=== PATIENT | female | born 1970 | race Native Hawaiian/Other Pacific Islander ===

== ENCOUNTER 2023-08-11 20:23 | Emergency (ER) | payer MEDICAID, OTHER ==
--- NOTE | 2023-08-11 20:54 | ED ---
General Adult HPI - General Source: patient Mode of arrival: ambulatory Limitations: no limitations <Maria Elena Negrete - Last Filed: 08/11/23 20:53> <Joaquin Farias - Last Filed: 08/12/23 02:26> - General Chief complaint: Back Pain/Injury Stated complaint: back pain - History of Present Illness Initial comments: 53-year-old female presents emergency department chief complaint back pain. She states that this started around 2 days ago. She states that it is throughout her entire back but states it is worse in the right flank. She denies any dysuria, hematuria, fever. (Maria Elena Negrete) 53-year-old female presenting with chief complaint of back pain. Patient states that the pain is located throughout her back, but primarily in the right flank. It started about 2 days ago. She denies any dysuria or hematuria. No urgency or frequency. Admits to nausea with no vomiting. No injury or trauma. No loss of bowel or bladder control or saddle paresthesia. no fevers or chills. No abdominal pain (Joaquin Farias) - Related Data Previous Rx's Medication Instructions Recorded Cephalexin [Keflex] 500 mg PO Q12HR 7 Days #14 cap 08/12/23 HYDROcodone/APAP 7.5-325MG [[place] 1 tab PO Q6HR PRN 3 Days #12 tab 08/12/23 7.5-325] Ondansetron Odt [Zofran Odt] 4 mg PO Q8HR PRN #20 tab 08/12/23 Allergies Allergy/AdvReac Type Severity Reaction Status Date / Time Sulfa (Sulfonamide Allergy Rash/Hives Verified 08/11/23 20:51 Antibiotics) morphine AdvReac headache Verified 08/11/23 20:51 Review of Systems ROS Other: All systems not noted in ROS Statement are negative. <Maria Elena Negrete - Last Filed: 08/11/23 20:53> ROS Other: All systems not noted in ROS Statement are negative. <Joaquin Farias - Last Filed: 08/12/23 02:26> ROS Statement: Those systems with pertinent positive or pertinent negative responses have been documented in the HPI. Past Medical History Past Medical History: Diabetes Mellitus, Hyperlipidemia, Hypertension, Osteoarthritis (OA) Additional Past Medical History / Comment(s): pancreatitis History of Any Multi-Drug Resistant Organisms: None Reported Past Surgical History: Back Surgery, Section, Joint Replacement, Orthopedic Surgery Additional Past Surgical History / Comment(s): rt knee, pelvis, mady cataracts, retnial detatchment Past Psychological History: No Psychological Hx Reported Smoking Status: Current every day smoker Past Alcohol Use History: None Reported Past Drug Use History: None Reported <Maria Elena Negrete - Last Filed: 08/11/23 20:53> General Exam Limitations: no limitations <Maria Elena Negrete - Last Filed: 08/11/23 20:53> Limitations: no limitations General appearance: alert, in no apparent distress Head exam: Present: atraumatic, normocephalic, normal inspection Eye exam: Present: normal appearance, EOMI Neck exam: Present: normal inspection, full ROM Respiratory exam: Present: normal lung sounds bilaterally. Absent: respiratory distress, wheezes, rales, rhonchi, stridor Cardiovascular Exam: Present: regular rate, normal rhythm, normal heart sounds. Absent: systolic murmur, diastolic murmur, rubs, gallop, clicks Back exam: Present: normal inspection, tenderness Neurological exam: Present: alert, oriented X3, CN II-XII intact Psychiatric exam: Present: normal affect, normal mood Skin exam: Present: warm, dry, intact, normal color. Absent: rash <Joaquin Farias - Last Filed: 08/12/23 02:26> - General Exam Comments Initial Comments: Visual Physical Exam Vital signs reviewed General: Well-appearing, nontoxic, no acute distress. Head: Normocephalic, atraumatic Eyes: PERRLA, EOMI ENT: Airway patent Chest: Nonlabored breathing Skin: No visual rash, normal skin tone Neuro: Alert and oriented 3 Musculoskeletal: No gross abnormalities (Maria Elena Negrete) Course Vital Signs 08/11/23 20:45 Temperature 98.6 F Pulse Rate 93 Respiratory 20 Rate Blood Pressure 145/84 O2 Sat by Pulse 98 Oximetry Medical Decision Making <Maria Elena Negrete - Last Filed: 08/11/23 20:53> - Lab Data Result diagrams: 08/12/23 01:07 <Joaquin Farias - Last Filed: 08/12/23 02:26> - Medical Decision Making I preformed the quick note portion of this chart. Electronically signed by Maria Elena Negrete PA-C (Maria Elena Negrete) Was pt. sent in by a medical professional or institution ([facility], [employer] RE[employer], urgent care, hospital, or penitentiary...) When possible be specific @ -No Did you speak to anyone other than the patient for history (EMS, parent, family, police, friend...)? What history was obtained from this source @ -No Did you review nursing and triage notes (agree or disagree)? Why? @ -I reviewed and agree with nursing and triage notes Were old charts reviewed (outside hosp., previous admission, EMS record, old EKG, old radiological studies, urgent care reports/EKG's, penitentiary records)? Report findings @ -No old charts were reviewed Differential Diagnosis (chest pain, altered mental status, abdominal pain women, abdominal pain men, vaginal bleeding, weakness, fever, dyspnea, syncope, headache, dizziness, GI bleed, back pain, seizure, CVA, palpatations, mental health, musculoskeletal)? @ - MDM Differential Back Pain: Strain, zoster, cauda equina syndrome, epidural abscess, vertebral osteomyelitis, discitis, fracture, subluxation, disc herniation, DJD, spinal stenosis, dissection, AAA, pancreatitis, peptic ulcer disease, pyelonephritis, kidney stone this is not meant to be an all-inclusive list. EKG interpreted by me (3pts min.). @ -As above X-rays interpreted by me (1pt min.). @ -None done CT interpreted by me (1pt min.). @ -No acute intra-abdominal process. Punctate nonobstructing bilateral renal stones. Gas in the urinary bladder U/S interpreted by me (1pt. min.). @ -None done What testing was considered but not performed or refused? (CT, X-rays, U/S, labs)? Why? @ -None What meds were considered but not given or refused? Why? @ -None Did you discuss the management of the patient with other professionals (professionals i.e. [facility], [employer] RE[employer]ER, lab, RT, psych nurse, high school social studies tutor, molybdenum steamer operator, teacher, pharmaceutical officer, director of casework services)? Give summary @ -Spoke with Dr. Sierra who stated that if the patient has a white count greater than 15 she could be admitted for observation, if white count is less than 15 she may be discharged home on antibiotics with outpatient follow-up Was smoking cessation discussed for >3mins.? @ -No Was critical care preformed (if so, how long)? @ -No Were there social determinants of health that impacted care today? How? (Homelessness, low income, unemployed, alcoholism, drug addiction, transportation, low edu. Level, literacy, decrease access to med. care, fdc, rehab)? @ -No Was there de-escalation of care discussed even if they declined (Discuss DNR or withdrawal of care, Hospice)? DNR status @ -No What co-morbidities impacted this encounter? (DM, HTN, Smoking, COPD, CAD, Cancer, CVA, ARF, Chemo, Hep., AIDS, mental health diagnosis, sleep apnea, morbid obesity)? @ -None Was patient admitted / discharged? Hospital course, mention meds given and route, prescriptions, significant lab abnormalities, going to OR and other pertinent info. @ -53-year-old female presenting with chief complaint of acute pain ongoing for 2 days. Urine is positive for UTI. CT negative for stone. There is air noted in the urinary bladder. I spoke with urologist on-call who stated that the freida koroma had a normal white count she may be discharged home on antibiotics. WBC 8.3. Patient will be treated with Keflex and instructed to follow up with urology in the outpatient setting. Follow-up with PCP. Report back to ER with any new or worsening symptoms. Discussed return parameters and answered all questions. Patient conveyed verbal understanding and agreed to the plan. I discussed this case in detail with my attending Dr. Rushing Undiagnosed new problem with uncertain prognosis? @ -No Drug Therapy requiring intensive monitoring for toxicity (Heparin, Nitro, Insulin, Cardizem)? @ -No Were any procedures done? @ -No Diagnosis/symptom? @ -UTI Acute, or Chronic, or Acute on Chronic? @ -Acute Uncomplicated (without systemic symptoms) or Complicated (systemic symptoms)? @ -Uncomplicated Side effects of treatment? @ -No Exacerbation, Progression, or Severe Exacerbation? @ -No Poses a threat to life or bodily function? How? (Chest pain, [place], NH, pneumonia, PE, COPD, DKA, ARF, appy, cholecystitis, CVA, Diverticulitis, Homicidal, Suicidal, threat to staff... and all critical care pts) @ -No (Joaquin Farias) - Lab Data Lab Results 08/11/23 08/12/23 Range/Units 20:58 01:07 WBC 8.3 (3.8-10.6) k/uL RBC 4.88 (3.80-5.40) m/uL Hgb 14.8 (11.4-16.0) gm/dL Hct 43.7 (34.0-46.0) % MCV 89.5 (80.0-100.0) fL MCH 30.3 (25.0-35.0) pg MCHC 33.8 (31.0-37.0) g/dL RDW 12.5 (11.5-15.5) % Plt Count 224 (150-450) k/uL MPV 8.1 Neutrophils % 63 % Lymphocytes % 28 % Monocytes % 5 % Eosinophils % 2 % Basophils % 0 % Neutrophils # 5.2 (1.3-7.7) k/uL Lymphocytes # 2.3 (1.0-4.8) k/uL Monocytes # 0.4 (0-1.0) k/uL Eosinophils # 0.2 (0-0.7) k/uL Basophils # 0.0 (0-0.2) k/uL Urine Color Colorless Urine Appearance Clear (Clear) Urine pH 6.0 (5.0-8.0) Ur Specific [place] 1.017 (1.001-1.035) Urine Protein 3+ H (Negative) Urine Glucose (UA) 4+ H (Negative) Urine Ketones 1+ H (Negative) Urine Blood Small H (Negative) Urine Nitrite Positive H (Negative) Urine Bilirubin Negative (Negative) Urine Urobilinogen <2.0 (<2.0) mg/dL Ur Leukocyte Esterase Negative (Negative) Urine RBC 9 H (0-5) /hpf Urine WBC 10 H (0-5) /hpf Ur Squamous Epith Cells 2 (0-4) /hpf Urine Bacteria Many H (None) /hpf Urine Mucus Rare H (None) /hpf Disposition <Maria Elena Negrete - Last Filed: 08/11/23 20:53> Is patient prescribed a controlled substance at d/c from ED?: No Time of Disposition: 01:26 <Joaquin Farias - Last Filed: 08/12/23 02:26> Clinical Impression: UTI (urinary tract infection) Disposition: HOME SELF-CARE Condition: Good Instructions (If sedation given, give patient instructions): Urinary Tract Infection in Women (ED) Additional Instructions: Follow-up with PCP and neurology. Report back to ER with any new or worsening symptoms. Prescriptions: Cephalexin [Keflex] 500 mg PO Q12HR 7 Days #14 cap HYDROcodone/APAP 7.5-325MG [[place] 7.5-325] 1 tab PO Q6HR PRN 3 Days #12 tab PRN Reason: Pain Ondansetron Odt [Zofran Odt] 4 mg PO Q8HR PRN #20 tab PRN Reason: Nausea Referrals: None,Stated [Primary Care Provider] - 1-2 days Sammy Sierra MD [STAFF PHYSICIAN] - 1-2 days
[2023-08-11 21:22] LABS: Appearance,Urine Clear (Clear); Bacteria,Urine Many /hpf; Bilirubin,Urine Negative (Negative); Blood,Urine Small (Negative); Color,Urine Colorless; Glucose,Urine (UA) 4+ (Negative); Ketones,Urine 1+ (Negative); Leukocyte Esterase,Urine Negative (Negative); Mucus,Urine Rare /hpf; Nitrite,Urine Positive (Negative); Protein,Urine 3+ (Negative); RBC,Urine 9 /hpf (0-5); Specific Gravity,Urine 1.017 (1.001-1.035); Squamous Epithelial Cell,Urine 2 /hpf (0-4); Urobilinogen,Urine <2.0 mg/dL (<2.0); WBC,Urine 10 /hpf (0-5)
[2023-08-11] MEDS ORDERED: HYDROcodone/APAP 7.5-325MG 1 EACH TAB PO ONE (22:14)
[2023-08-11] MEDS ORDERED: ONDANSETRON ODT 4 MG TAB PO STA (22:14)
[2023-08-12] MEDS ORDERED: HYDROmorphone 1 MG/ML 1 ML SYRINGE IM STA (00:12)
--- NOTE | 2023-08-12 00:16 | CT ---
EXAM: CT Abdomen and Pelvis Without Intravenous Contrast CLINICAL HISTORY: ITS.REASON CT Reason: flank pain TECHNIQUE: Axial computed tomography images of the abdomen and pelvis without intravenous contrast. CTDI is 14.8 mGy and DLP is 857.9 mGy-cm. This CT exam was performed using one or more of the following dose reduction techniques: automated exposure control, adjustment of the mA and/or kV according to patient size, and/or use of iterative reconstruction technique. COMPARISON: No relevant prior studies available. FINDINGS: Lung bases: Unremarkable. No mass. No consolidation. ABDOMEN: Liver: Hepatomegaly. Gallbladder and bile ducts: Cholecystectomy. No ductal dilation. Pancreas: Unremarkable. No ductal dilation. Spleen: Unremarkable. No splenomegaly. Adrenals: Unremarkable. No mass. Kidneys and ureters: No hydronephrosis. Punctate nonobstructing bilateral kidney stones. Stomach and bowel: Unremarkable. No mucosal thickening. No bowel obstruction. PELVIS: Appendix: Normal appendix. Bladder: Gas in the urinary bladder suggesting recent instrumentation. No wall thickening. No stones. Reproductive: Normal uterus. ABDOMEN and PELVIS: Intraperitoneal space: Unremarkable. No free air. No significant fluid collection. Bones/joints: Posterior hardware fixation and interbody fusion at L5- S1. Fixation hardware along the right acetabulum. No fracture or dislocation. Soft tissues: Unremarkable. Vasculature: Unremarkable. No abdominal aortic aneurysm. Lymph nodes: Unremarkable. No enlarged lymph nodes. IMPRESSION: 1. No acute intra-abdominal process. 2. Punctate nonobstructing bilateral kidney stones. 3. Gas in the urinary bladder, correlate for recent instrumentation.
[2023-08-12 01:24] LABS: Basophils % (A) 0 %; Eosinophils # (A) 0.2 k/uL (0-0.7); Eosinophils % (A) 2 %; HCT 43.7 % (34.0-46.0); HGB 14.8 gm/dL (11.4-16.0); Lymphocytes # (A) 2.3 k/uL (1.0-4.8); Lymphocytes % (A) 28 %; MCH 30.3 pg (25.0-35.0); MCHC 33.8 g/dL (31.0-37.0); MCV 89.5 fL (80.0-100.0); Mean Platelet Volume 8.1; Monocytes # (A) 0.4 k/uL (0-1.0); Monocytes % (A) 5 %; Neutrophils # (A) 5.2 k/uL (1.3-7.7); Neutrophils % (A) 63 %; Platelet Count 224 k/uL (150-450); RBC 4.88 m/uL (3.80-5.40); RDW 12.5 % (11.5-15.5); WBC 8.3 k/uL (3.8-10.6)
[2023-08-12 02:36] VITALS: BP 138/74; PULSE 91; RESP 18; TEMP 98.7
== END 2023-08-12 02:38 | disposition home or self-care (01) ==
LOC: EC 20:23
DX: N39.0 Urinary tract infection, site not specified (principal); I10 Essential (primary) hypertension; E11.9 Type 2 diabetes mellitus without complications; F17.200 Nicotine dependence, unspecified, uncomplicated; Z88.2 Allergy status to sulfonamides; Z88.5 Allergy status to narcotic agent
CPT/HCPCS: 36415; 85025; 81001; 87086; 74176; 99284; 96372; J1170

== ENCOUNTER 2025-01-12 16:40 | Inpatient (IN) | payer OTHER ==
[2025-01-12] MEDS: SODIUM CHLORIDE 0.9% 1,000 ML IV STA (16:57)
[2025-01-12] MEDS: ONDANSETRON 4 MG/2 ML VIAL IVP STA (16:57)
[2025-01-12] MEDS: NITROGLYCERIN SL TABS 0.4 MG TAB SUBLINGUAL STA ×2 (16:57→17:06)
[2025-01-12 17:06] LABS: Basophils % (A) 0 %; Eosinophils # (A) 0.2 k/uL (0-0.7); Eosinophils % (A) 2 %; HCT 35.1 % (34.0-46.0); HGB 11.4 gm/dL (11.4-16.0); Lymphocytes # (A) 1.3 k/uL (1.0-4.8); Lymphocytes % (A) 16 %; MCH 28.8 pg (25.0-35.0); MCHC 32.6 g/dL (31.0-37.0); MCV 88.5 fL (80.0-100.0); Mean Platelet Volume 7.4; Monocytes # (A) 0.5 k/uL (0-1.0); Monocytes % (A) 6 %; Neutrophils % (A) 75 %; Platelet Count 222 k/uL (150-450); RBC 3.96 m/uL (3.80-5.40)
[2025-01-12 17:17] LABS: ALT 26 U/L (4-34); African American GFR (CKD) 59 (>60 ml/min/1.73 sqM); Albumin 3.9 g/dL (3.5-5.0); Anion Gap 12 mmol/L; Blood Urea Nitrogen 28 mg/dL (7-17); Carbon Dioxide 23 mmol/L (22-30); Chloride 102 mmol/L (98-107); Glucose 157 mg/dL (74-99); Lipase 114 U/L (23-300); Non-African American GFR(CKD) 51 (>60 ml/min/1.73 sqM); Partial Thromboplastin Time 24.3 sec (22.0-30.0); Prothrombin Time 10.9 sec (10.0-12.5); Sodium 137 mmol/L (137-145); Total Bilirubin 0.7 mg/dL (0.2-1.3); Total Protein 6.9 g/dL (6.3-8.2)
[2025-01-12] MEDS ORDERED: HEPARIN SODIUM 1,000 UN/ML (10ML VL) IV PRN (17:22)
[2025-01-12 17:25] LABS: AST 32 U/L (14-36); Alkaline Phosphatase 112 U/L (38-126); Magnesium 1.8 mg/dL (1.6-2.3); Potassium 4.7 mmol/L (3.5-5.1)
[2025-01-12 17:26] LABS: NT-Pro-B-Type Natriuretic Pept 2340 pg/mL
--- NOTE | 2025-01-12 17:27 | ED ---
General Adult HPI - General Chief complaint: Chest Pain Stated complaint: Chest pain Time Seen by Provider: 01/12/25 16:40 Source: patient, RN notes reviewed, old records reviewed Mode of arrival: ambulatory Limitations: no limitations - History of Present Illness Initial comments: Patient is a 54-year-old female with past medical history remarkable for hypertension, hyperlipidemia, diabetes, angina who presents emergency department complaining of chest pain. Has been ongoing for over 1 day. States it is in the left side of her chest with squeezing tightness sensation with radiation to the left shoulder. States she occasionally also gets some radiation to the abdomen. Denies any fevers or chills. States this has occurred previously as well and they did recommend cardiac cath however it was not performed due to renal issues states that she took 1 full aspirin from EMS prior to arrival as well as multiple nitroglycerin tablets which did not help with her pain. Presents for further evaluation at this time. - Related Data Home Medications Medication Instructions Recorded Confirmed Acetaminophen-Codeine 300-30mg 1 tab PO Q4H PRN 01/12/25 01/12/25 [Tylenol w/codeine #3] Aspirin EC [Ecotrin Low Dose] 81 mg PO DAILY 01/12/25 01/12/25 Atorvastatin [Lipitor] 40 mg PO HS 01/12/25 01/12/25 Escitalopram [Lexapro] 10 mg PO DAILY 01/12/25 01/12/25 Ezetimibe [Zetia] 10 mg PO DAILY 01/12/25 01/12/25 Gabapentin 300 mg PO TID 01/12/25 01/12/25 Insulin Aspart [Insulin Aspart See Protocol SQ AC-TID 01/12/25 01/12/25 Flexpen] Insulin Glargine (Lantus) [Lantus 50 unit SQ BID 01/12/25 01/12/25 Vial] Isosorbide Mononitrate ER [Imdur] 30 mg PO DAILY 01/12/25 01/12/25 Levothyroxine Sodium [Synthroid] 175 mcg PO DAILY 01/12/25 01/12/25 Metoclopramide HCl [Reglan] 10 mg PO TID 01/12/25 01/12/25 Metoprolol Tartrate [Lopressor] 25 mg PO BID 01/12/25 01/12/25 Naproxen [Naprosyn] 500 mg PO BID-W/MEALS 01/12/25 01/12/25 Oxybutynin ER [Ditropan XL] 10 mg PO DAILY 01/12/25 01/12/25 Semaglutide [Ozempic] 1 mg SQ MO 01/12/25 01/12/25 hydrOXYzine HCL [Atarax] 25 mg PO HS PRN 01/12/25 01/12/25 lisinopriL [Zestril] 10 mg PO DAILY 01/12/25 01/12/25 Allergies Allergy/AdvReac Type Severity Reaction Status Date / Time Sulfa (Sulfonamide Allergy Rash/Hives Verified 01/12/25 17:42 Antibiotics) morphine AdvReac headache Verified 01/12/25 17:42 Review of Systems ROS Statement: Those systems with pertinent positive or pertinent negative responses have been documented in the HPI. Review of Systems: CONST: Denies fever EYES: Denies blurry vision ENT: Denies nasal congestion C/V: Endorses chest pain RESP: Denies shortness of breath GI: Endorses epigastric abdominal discomfort : Denies dysuria SKIN: Denies rash. MSK: Denies joint pain. NEURO: Denies headache ROS Other: All systems not noted in ROS Statement are negative. Past Medical History Past Medical History: Chest Pain / Angina, Diabetes Mellitus, Hyperlipidemia, Hypertension, Osteoarthritis (OA) Additional Past Medical History / Comment(s): pancreatitis History of Any Multi-Drug Resistant Organisms: None Reported Past Surgical History: Back Surgery, Section, Joint Replacement, Orthopedic Surgery Additional Past Surgical History / Comment(s): rt knee, pelvis, mady cataracts, retnial detatchment Past Psychological History: No Psychological Hx Reported Smoking Status: Current every day smoker Past Alcohol Use History: None Reported Past Drug Use History: None Reported General Exam - General Exam Comments Initial Comments: General: Appears in no acute distress. HEAD: Normal with no signs of head trauma. EYES: PERRLA, EOMI, conjunctiva normal, no discharge. ENT: Hearing grossly intact, normal oropharynx. RESPIRATORY: Clear breath sounds bilaterally. No wheezes, rales, or rhonchi. No hypoxia. No increased work of breathing. C/V: Regular rate and rhythm. S1 and S2 auscultated, no edema, peripheral pulses 2+ and intact throughout. Chest pain is reproducible over the left chest along the pectoral muscle body towards the left shoulder. ABD: Abd is soft, nontender, nondistended. No significant epigastric discomfort on palpation. No guarding or rebound tenderness. No peritoneal signs. EXT: Normal range of motion, no obvious deformity SKIN: No rashes or lesions observed on exposed skin. NEURO: Alert and oriented x 4. Limitations: no limitations Course Vital Signs 01/12/25 01/12/25 16:44 18:17 Temperature 98 F Pulse Rate 90 90 Respiratory 18 18 Rate Blood Pressure 159/85 146/79 O2 Sat by Pulse 98 100 Oximetry Medical Decision Making - Medical Decision Making Was pt. sent in by a medical professional or institution (, PA, DIRECTOR INTEGRATED, urgent care, hospital, or care home...) When possible be specific @ -No Did you speak to anyone other than the patient for history (EMS, parent, family, police, friend...)? What history was obtained from this source @ -No Did you review nursing and triage notes (agree or disagree)? Why? @ -I reviewed and agree with nursing and triage notes Were old charts reviewed (outside hosp., previous admission, EMS record, old EKG, old radiological studies, urgent care reports/EKG's, care home records)? Report findings @ -Reviewed old charts and revealed no prior EKGs in our system for the pat ient. Patient did have previous CT scans, most recent in July 2023. CT abdomen pelvis at that time showed no obvious acute process. Differential Diagnosis (chest pain, altered mental status, abdominal pain women, abdominal pain men, vaginal bleeding, weakness, fever, dyspnea, syncope, headache, dizziness, GI bleed, back pain, seizure, CVA, palpatations, mental health, musculoskeletal)? @ -Differential Chest Pain: Stable Angina, Unstable Angina, STEMI, NSTEMI Aortic Dissection, Pneumothorax, Musculoskeletal, Esophageal Spasm GERD, Cholecystitis, Pancreatitis, Zoster, this is not meant to be an all-inclusive list. EKG interpreted by me (3pts min.). @ -As above X-rays interpreted by me (1pt min.). @ -Chest x-ray shows no obvious acute cardiopulmonary process. CT interpreted by me (1pt min.). @ -None done U/S interpreted by me (1pt. min.). @ -None done What testing was considered but not performed or refused? (CT, X-rays, U/S, labs)? Why? @ -None What meds were considered but not given or refused? Why? @ -None Did you discuss the management of the patient with other professionals (professionals i.e. , PA, DIRECTOR [employer]TEGR[employer], lab, RT, psych nurse, social problems specialist, interior assemblies installer, teacher, certified juvenile probation officer, porter sample case)? Give summary @ -I was able to contact Dr. Solorzano who is on-call for cardiology who reviewed the EKG and we discussed the patient's past medical history as well as HPI. He recommended treating as an NSTEMI with heparin, obtain the troponin, and calling him back if Dilaudid does not help with the patient's chest pain. At this time, as I agreed with Dr. Solorzano I did contact him again and updated him on the patient's condition including the repeat EKG, undetectable troponin, as well as improvement in chest pain. At this time, patient will not be taken to [facility] however he would like me to continue treatment with IV heparin, obtain echo in the morning, and make the patient n.p.o. after midnight. Patient will be admitted to medicine out to a telemetry bed. Patient was in agreement this plan. Discussed the case with the admitting provider, MICKIE Reyes of [facility] who accepted the admission. Was smoking cessation discussed for >3mins.? @ -No Was critical care preformed (if so, how long)? @ -Yes, 36 minutes. Were there social determinants of health that impacted care today? How? (Homelessness, low income, unemployed, alcoholism, drug addiction, transportation, low edu. Level, literacy, decrease access to med. care, nursing home, rehab)? @ -No Was there de-escalation of care discussed even if they declined (Discuss DNR or withdrawal of care, Hospice)? DNR status @ -No What co-morbidities impacted this encounter? (DM, HTN, Smoking, COPD, CAD, Cancer, CVA, ARF, Chemo, Hep., AIDS, mental health diagnosis, sleep apnea, morbid obesity)? @ -Hyperlipidemia, diabetes, hypertension, angina Was patient admitted / discharged? Hospital course, mention meds given and ro yurok, prescriptions, significant lab abnormalities, going to OR and other pertinent info. @ -Based on the patient's presentation and physical exam, presents emergency department complaining of primarily chest pain for 1 day. Patient has left- sided chest discomfort that she describes as a squeezing and sharp sensation with radiation to the left shoulder that is reproducible on palpation and with m ovement. Patient also has some nausea and epigastric discomfort. We will attempt additional nitroglycerin tablets at this time. She already received 325 mg of aspirin prior to arrival. Patient will be given a bolus of fluids as well. She was in agreement this plan. EKG does show some subtle findings that are concerning for ischemic changes. I was able to contact Dr. Solorzano who is on-call for cardiology who reviewed the EKG and we discussed the patient's past medical history as well as HPI. He recommended treating as an NSTEMI with heparin, obtain the troponin, and calling him back if Dilaudid does not help with the patient's chest pain.He is in agreement that EKG is concerning however does not meet criteria for STEMI activation at this time. Chest x-ray returned negative for any obvious acute cardiopulmonary process. Repeat EKG was obtained which showed improvement of many of the concerning ischemic changes from earlier. Laboratory studies remarkable for elevated BUN and creatinine however this seems to be baseline as it is similar to prior studies from 2 years ago. Troponin undetectable. Slight elevation in BNP. On reevaluation, patient is feeling improved with Dilaudid. Chest pain is still there but not as bad as it was. At this time, as I agreed with Dr. Solorzano I did contact him again and updated him on the patient's condition including the repeat EKG, undetectable troponin, as well as improvement in chest pain. At this time, patient will not be taken to [facility] however he would like me to continue treatment with IV heparin, obtain echo in the morning, and make the patient n.p.o. after midnight. Patient will be admitted to medicine out to a telemetry bed. Patient was in agreement this plan. Discussed the case with the admitting provider, MICKIE Reyes of [facility] who accepted the admission. Undiagnosed new problem with uncertain prognosis? @ -No Drug Therapy requiring intensive monitoring for toxicity (Heparin, Nitro, Insulin, Cardizem)? @ -Heparin Were any procedures done? @ -No Diagnosis/symptom? @ -ACS/unstable angina, chest pain Acute, or Chronic, or Acute on Chronic? @ -Acute Uncomplicated (without systemic symptoms) or Complicated (systemic symptoms)? @ -Complicated Side effects of treatment? @ -None Exacerbation, Progression, or Severe Exacerbation] @ -No Poses a threat to life or bodily function? @ -Yes, potentially could be ACS which can be life-threatening. - Lab Data Result diagrams: 01/12/25 16:59 01/12/25 16:59 Lab Results 01/12/25 01/12/25 01/12/25 Range/Units 16:59 16:59 16:59 WBC 8.0 (3.8-10.6) k/uL RBC 3.96 (3.80-5.40) m/uL Hgb 11.4 (11.4-16.0) gm/dL Hct 35.1 (34.0-46.0) % MCV 88.5 (80.0-100.0) fL MCH 28.8 (25.0-35.0) pg MCHC 32.6 (31.0-37.0) g/dL RDW 13.0 (11.5-15.5) % Plt Count 222 (150-450) k/uL MPV 7.4 Neutrophils % 75 % Lymphocytes % 16 % Monocytes % 6 % Eosinophils % 2 % Basophils % 0 % Neutrophils # 6.0 (1.3-7.7) k/uL Lymphocytes # 1.3 (1.0-4.8) k/uL Monocytes # 0.5 (0-1.0) k/uL Eosinophils # 0.2 (0-0.7) k/uL Basophils # 0.0 (0-0.2) k/uL PT 10.9 (10.0-12.5) sec INR 1.0 (<1.2) APTT 24.3 (22.0-30.0) sec Sodium 137 (137-145) mmol/L Potassium 4.7 (3.5-5.1) mmol/L Chloride 102 (98-107) mmol/L Carbon Dioxide 23 (22-30) mmol/L Anion Gap 12 mmol/L BUN 28 H (7-17) mg/dL Creatinine 1.21 H (0.52-1.04) mg/dL Est GFR (CKD-EPI)AfAm 59 (>60 ml/min/1.73 sqM) Est GFR (CKD-EPI)NonAf 51 (>60 ml/min/1.73 sqM) Glucose 157 H (74-99) mg/dL Calcium 9.0 (8.4-10.2) mg/dL Magnesium 1.8 (1.6-2.3) mg/dL Total Bilirubin 0.7 (0.2-1.3) mg/dL AST 32 (14-36) U/L ALT 26 (4-34) U/L Alkaline Phosphatase 112 (38-126) U/L Troponin I (0.000-0.034) ng/mL NT-Pro-B Natriuret Pep 2340 pg/mL Total Protein 6.9 (6.3-8.2) g/dL Albumin 3.9 (3.5-5.0) g/dL Lipase 114 (23-300) U/L 01/12/25 Range/Units 16:59 WBC (3.8-10.6) k/uL RBC (3.80-5.40) m/uL Hgb (11.4-16.0) gm/dL Hct (34.0-46.0) % MCV (80.0-100.0) fL MCH (25.0-35.0) pg MCHC (31.0-37.0) g/dL RDW (11.5-15.5) % Plt Count (150-450) k/uL MPV Neutrophils % % Lymphocytes % % Monocytes % % Eosinophils % % Basophils % % Neutrophils # (1.3-7.7) k/uL Lymphocytes # (1.0-4.8) k/uL Monocytes # (0-1.0) k/uL Eosinophils # (0-0.7) k/uL Basophils # (0-0.2) k/uL PT (10.0-12.5) sec INR (<1.2) APTT (22.0-30.0) sec Sodium (137-145) mmol/L Potassium (3.5-5.1) mmol/L Chloride (98-107) mmol/L Carbon Dioxide (22-30) mmol/L Anion Gap mmol/L BUN (7-17) mg/dL Creatinine (0.52-1.04) mg/dL Est GFR (CKD-EPI)AfAm (>60 ml/min/1.73 sqM) Est GFR (CKD-EPI)NonAf (>60 ml/min/1.73 sqM) Glucose (74-99) mg/dL Calcium (8.4-10.2) mg/dL Magnesium (1.6-2.3) mg/dL Total Bilirubin (0.2-1.3) mg/dL AST (14-36) U/L ALT (4-34) U/L Alkaline Phosphatase (38-126) U/L Troponin I <0.012 (0.000-0.034) ng/mL NT-Pro-B Natriuret Pep pg/mL Total Protein (6.3-8.2) g/dL Albumin (3.5-5.0) g/dL Lipase (23-300) U/L - EKG Data -: EKG Interpreted by Me EKG Comments: 12-lead Electrocardiogram Interpretation Note EKG was reviewed and interpreted by myself. 12-lead ECG performed at 1648 is interpreted by me as revealing normal sinus rhythm at a rate of 86 beats per minute. Crum is normal. AL interval is 165 ms, QRS durations 1 1 ms, QTc is 3 to 99 ms.. Patient does have subtle ST segment elevations in V1, V2, and mildly in V3. She also has some T wave inversions and mild depressions of the ST segments in III and aVF.. R wave progression across the precordium was delayed. Findings concerning for ischemic changes. No prior EKG for comparison.. 12-lead Electrocardiogram Interpretation Note EKG was reviewed and interpreted by myself. 12-lead ECG performed at 1810 is interpreted by me as revealing normal sinus rhythm at a rate of 86 beats per minute. Crum is normal. AL interval is 166 ms, QRS duration is 115 ms, QTc is 450 ms.. Patient T wave inversions in III and aVF have resolved as have the ST segment depressions. The slight ST segment elevations in the anterior precordial leads also improved at this time. Overall improved EKG with compared with EKG from earlier.. R wave progression across the precordium was delayed. Critical Care Time Critical Care Time: Yes Total Critical Care Time: 36 Disposition Clinical Impression: ACS (acute coronary syndrome), Unstable angina, Chest pain Disposition: ADMITTED IP TO THIS [facility] Condition: Stable Referrals: Aurelio Moran MD [Primary Care Provider] - 1-2 days Time of Disposition: 19:00
--- NOTE | 2025-01-12 17:33 | XR ---
EXAMINATION TYPE: XR chest 2V DATE OF EXAM: 01/12/2025 5:11 PM COMPARISON: Chest radiographs from 01/12/2025. CLINICAL INDICATION: Female, 54 years old with history of Chest Pain; TECHNIQUE: XR chest 2V Frontal and lateral views of the chest. FINDINGS: Lungs/Pleura: There is no evidence of pleural effusion, focal consolidation, or pneumothorax. Pulmonary vascularity: Unremarkable. Heart/mediastinum: Cardiomediastinal silhouette is unremarkable. Musculoskeletal: No acute osseous pathology. IMPRESSION: No acute cardiopulmonary disease/process. [facility], , 01/12/2025 5:30 PM
[2025-01-12] MEDS: HYDROmorphone 1 MG/ML 1 ML SYRINGE IVP STA ×2 (17:39→18:13)
[2025-01-12] MEDS: HEPARIN SODIUM 1,000 UN/ML (10ML VL) IV ONE (17:39)
[2025-01-12] MEDS: HEPARIN SOD,PORK IN 0.45% NACL 25,000 UNIT in 0.45% NACL 1 250ML.BAG IV SCH (17:41)
[2025-01-12] MEDS ORDERED: NALOXONE 0.4 MG/ML 1 ML VIAL IV PRN (19:18)
[2025-01-12] MEDS ORDERED: hydrOXYzine HCL 25 MG TAB PO PRN (19:22)
[2025-01-12] MEDS ORDERED: DEXTROSE 50% SYRINGE 50 ML IVP PRN ×2 (19:24)
[2025-01-12] MEDS: ATORVASTATIN 40 MG TAB PO SCH (20:35)
[2025-01-12] MEDS: METOPROLOL TARTRATE 25 MG TAB PO SCH (20:35)
[2025-01-12] MEDS: HYDROmorphone 1 MG/ML 1 ML SYRINGE IVP PRN (20:35)
[2025-01-12] MEDS: INSULIN DETEMIR (LEVEMIR) 100 UNIT/ML SYR SQ SCH (21:33)
[2025-01-12] MEDS: ONDANSETRON 4 MG/2 ML VIAL IVP PRN (21:33)
[2025-01-12] MEDS: SODIUM CHLORIDE 0.9% 1,000 ML IV SCH (21:34)
[2025-01-12 22:45] LABS: Glucose,Whole Blood 106 mg/dL (70-110)
[2025-01-12] MEDS: GABAPENTIN 300 MG CAP PO SCH (22:45)
[2025-01-13 08:09] LABS: Basophils % (A) 1 %; Eosinophils # (A) 0.2 k/uL (0-0.7); Eosinophils % (A) 3 %; HCT 33.7 % (34.0-46.0); HGB 10.9 gm/dL (11.4-16.0); Hypochromasia Slight; Lymphocytes # (A) 1.9 k/uL (1.0-4.8); Lymphocytes % (A) 30 %; MCH 29.4 pg (25.0-35.0); MCHC 32.3 g/dL (31.0-37.0); MCV 90.9 fL (80.0-100.0); Mean Platelet Volume 7.4; Monocytes # (A) 0.5 k/uL (0-1.0); Monocytes % (A) 8 %; Neutrophils # (A) 3.5 k/uL (1.3-7.7); Neutrophils % (A) 56 %; Platelet Count 213 k/uL (150-450); RDW 13.3 % (11.5-15.5); WBC 6.3 k/uL (3.8-10.6)
[2025-01-13] MEDS ORDERED: ALPRAZolam 0.5 MG TAB PO PRN (08:23)
[2025-01-13] MEDS ORDERED: DEXTROSE 50% SYRINGE 50 ML IVP PRN ×2 (08:46)
[2025-01-13 08:52] LABS: Prothrombin Time 11.4 sec (10.0-12.5)
[2025-01-13] MEDS: ASPIRIN 81 MG PO SCH (09:19)
[2025-01-13] MEDS: INSULIN ASPART (NovoLOG) 100 UNIT/ML VIAL SQ SCH ×2 (09:20→13:19)
--- NOTE | 2025-01-13 09:22 | P.CRDCN ---
History of Present Illness History of present illness: HISTORY OF PRESENT ILLNESS: This is a 54-year-old female with a past medical history significant for hypothyroidism, hypertension, hyperlipidemia, and diabetes. 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 We have been asked to see the patient in consultation for chest pain and. Patient examined at the bedside in the ER. Patient states a couple days ago she started having chest pain but states she "didnt think much of it". She states she was not doing anything when it started. The pain then came back a couple days later and she also had radiation of the pain into her left arm. She gives additional history that she was hospitalized in October 2024 for chest pain. She states that she underwent an echocardiogram and a stress test at that time. She was told that "part of her heart was not working well". She states a cardiac catheterization was recommended however they decided not to do this due to her chronic kidney disease. She does report she gets occasional chest pain with ambulation. She reports mild chest discomfort this morning. She states the pain is sometimes worse with deep inspiration and also with chest wall palpation. She is a former cigarette smoker and quit smoking about a year ago. DIAGNOSTICS: - EKG reveals sinus mechanism with T wave inversions inferiorly. Repeat EKG reveals Sinus mechanism with T wave inversions in high lateral leads. - Chest xray negative for acute process - Laboratory data: WBC 8.0. Hemoglobin 11.4. Platelet count 222. Sodium 137. Potassium 4.7. BUN 28. Creatinine 1.21. Troponin negative x 3. proBNP 2340. - Current home cardiac medications include atorvastatin 80 mg at night, aspirin 81 mg daily, lisinopril 10 mg daily, Zetia 10 mg daily, metoprolol tartrate 25 mg twice a day, Imdur 30 mg daily - No previous echocardiogram, stress test, or cardiac catheterization available in EMR for review REVIEW OF SYSTEMS: At the time of my exam: CONSTITUTIONAL: Denies fever or chills. HEENT: Denies blurred vision, vision changes, or eye pain. Denies hemoptysis CARDIOVASCULAR: Denies chest pain. Denies orthopnea. Denies PND. Denies palpitations RESPIRATORY: Denies shortness of breath. GASTROINTESTINAL: Denies abdominal pain. Denies nausea or vomiting. HEMATOLOGIC: Denies bleeding disorders. GENITOURINARY: Denies any blood in urine. SKIN: Denies pruitis. Denies rash. PHYSICAL EXAM: VITAL SIGNS: Reviewed. GENERAL: Well-developed in no acute distress. HEENT: Head is normocephalic. Pupils are equal, round. Sclerae anicteric. Mucous membranes of the mouth are moist. Neck supple. No JVD or thyromegaly LUNGS: Respirations even and unlabored. Lungs essentially clear to auscultation bilaterally. HEART: Regular rate and rhythm. S1 and S2 heard. ABDOMEN: Soft. Nondistended. Nontender. EXTREMITIES: Normal range of motion. No clubbing or cyanosis. Peripheral pulses intact. No lower extremity edema NEUROLOGIC: Awake and alert. Oriented x 3. ASSESSMENT: Chest pain with apparent recent abnormal echo and stress test Hypertension Hyperlipidemia Diabetes Chronic kidney disease Hypothyroidism Former nicotine dependence, patient quit smoking 1 year ago PLAN: An acute coronary event has been ruled out Obtain 2D echo to assess cardiac structure and function Resume home cardiac medications Patient to undergo cardiac cath today with Dr. Feliz Further recommendations pending patient course Nurse practitioner note has been reviewed by physician. Signing provider agrees with the documented findings, assessment, and plan of care documented by [facility] as a scribe. Past Medical History Past Medical History: Chest Pain / Angina, Diabetes Mellitus, Hyperlipidemia, Hypertension, Osteoarthritis (OA) Additional Past Medical History / Comment(s): pancreatitis History of Any Multi-Drug Resistant Organisms: None Reported Past Surgical History: Back Surgery, Section, Joint Replacement, Orthopedic Surgery Additional Past Surgical History / Comment(s): rt knee, pelvis, mady cataracts, retnial detatchment Past Psychological History: No Psychological Hx Reported Smoking Status: Current every day smoker Past Alcohol Use History: None Reported Past Drug Use History: None Reported Medications and Allergies Home Medications Medication Instructions Recorded Confirmed Type Acetaminophen-Codeine 300-30mg 1 tab PO Q4H PRN 01/12/25 01/12/25 History [Tylenol w/codeine #3] Aspirin EC [Ecotrin Low Dose] 81 mg PO DAILY 01/12/25 01/12/25 History Atorvastatin [Lipitor] 40 mg PO HS 01/12/25 01/12/25 History Escitalopram [Lexapro] 10 mg PO DAILY 01/12/25 01/12/25 History Ezetimibe [Zetia] 10 mg PO DAILY 01/12/25 01/12/25 History Gabapentin 300 mg PO TID 01/12/25 01/12/25 History Insulin Aspart [Insulin Aspart See Protocol SQ AC-TID 01/12/25 01/12/25 History Flexpen] Insulin Glargine (Lantus) [Lantus 50 unit SQ BID 01/12/25 01/12/25 History Vial] Isosorbide Mononitrate ER [Imdur] 30 mg PO DAILY 01/12/25 01/12/25 History Levothyroxine Sodium [Synthroid] 175 mcg PO DAILY 01/12/25 01/12/25 History Metoclopramide HCl [Reglan] 10 mg PO TID 01/12/25 01/12/25 History Metoprolol Tartrate [Lopressor] 25 mg PO BID 01/12/25 01/12/25 History Naproxen [Naprosyn] 500 mg PO BID-W/MEALS 01/12/25 01/12/25 History Oxybutynin ER [Ditropan XL] 10 mg PO DAILY 01/12/25 01/12/25 History Semaglutide [Ozempic] 1 mg SQ MO 01/12/25 01/12/25 History hydrOXYzine HCL [Atarax] 25 mg PO HS PRN 01/12/25 01/12/25 History lisinopriL [Zestril] 10 mg PO DAILY 01/12/25 01/12/25 History Allergies Allergy/AdvReac Type Severity Reaction Status Date / Time Sulfa (Sulfonamide Allergy Rash/Hives Verified 01/12/25 17:42 Antibiotics) morphine AdvReac headache Verified 01/12/25 17:42 Physical Exam Vitals: Vital Signs Temp Pulse Resp BP Pulse Ox 01/13/25 04:34 79 18 159/88 95 01/13/25 02:06 82 18 137/76 97 01/12/25 21:02 92 18 140/86 97 01/12/25 18:17 90 18 146/79 100 01/12/25 16:44 98 F 90 18 159/85 98 Intake and Output 01/12/25 01/13/25 01/13/25 22:59 06:59 14:59 Intake Total 77.036 Balance 77.036 Intake: Intake, IV Titration 77.036 Amount Heparin Sod,Pork in 0.45% 77.036 NaCl 25,000 unit In 0.45 % NaCl 1 250ml.bag @ 12 UNITS/KG/HR 10.07 mls/hr IV .Q24H [facility] Rx#: [id number] Other: Weight 83.915 kg Results 01/13/25 07:24 01/12/25 16:59 Cardiac Enzymes 01/12/25 01/12/25 01/12/25 Range/Units 16:59 16:59 21:25 AST 32 (14-36) U/L Troponin I <0.012 <0.012 (0.000-0.034) ng/mL 01/12/25 Range/Units 23:18 AST (14-36) U/L Troponin I <0.012 (0.000-0.034) ng/mL Coagulation 01/12/25 01/12/25 Range/Units 16:59 23:18 PT 10.9 (10.0-12.5) sec APTT 24.3 78.1 H (22.0-30.0) sec CBC 01/12/25 Range/Units 16:59 WBC 8.0 (3.8-10.6) k/uL RBC 3.96 (3.80-5.40) m/uL Hgb 11.4 (11.4-16.0) gm/dL Hct 35.1 (34.0-46.0) % Plt Count 222 (150-450) k/uL Comprehensive Metabolic Panel 01/12/25 Range/Units 16:59 Sodium 137 (137-145) mmol/L Potassium 4.7 (3.5-5.1) mmol/L Chloride 102 (98-107) mmol/L Carbon Dioxide 23 (22-30) mmol/L BUN 28 H (7-17) mg/dL Creatinine 1.21 H (0.52-1.04) mg/dL Glucose 157 H (74-99) mg/dL Calcium 9.0 (8.4-10.2) mg/dL AST 32 (14-36) U/L ALT 26 (4-34) U/L Alkaline Phosphatase 112 (38-126) U/L Total Protein 6.9 (6.3-8.2) g/dL Albumin 3.9 (3.5-5.0) g/dL Current Medications Generic Name Dose Route Start Last Admin Trade Name Freq PRN Reason Stop Dose Admin Acetaminophen 650 mg 01/12/25 22:48 Acetaminophen Tab 325 Mg Tab PO Q6HR PRN Fever and/ or Pain Aspirin 81 mg 01/13/25 09:00 Aspirin 81 Mg PO DAILY [facility] Atorvastatin Calcium 40 mg 01/12/25 21:00 01/12/25 20:35 Atorvastatin 40 Mg Tab PO 40 mg HS [facility] Administration Dextrose/Water 50 ml 01/12/25 19:24 Dextrose 50% Syringe 50 Ml IVP PER PROTOCOL PRN Hypoglycemia Protocol Dextrose/Water 25 ml 01/12/25 19:24 Dextrose 50% Syringe 50 Ml IVP PER PROTOCOL PRN Hypoglycemia Protocol Ezetimibe 10 mg 01/13/25 09:00 Ezetimibe 10 Mg Tab PO DAILY [facility] Escitalopram Oxalate 10 mg 01/13/25 09:00 Escitalopram 10 Mg Tab PO DAILY [facility] Gabapentin 300 mg 01/12/25 22:00 01/12/25 22:45 Gabapentin 300 Mg Cap PO 300 mg TID [facility] Administration Heparin Sodium (Porcine) 0 unit 01/12/25 17:22 Heparin Sodium 1,000 Un/Ml (10ml Vl) IV PER PROTOCOL PRN Low PTT Protocol Hydromorphone HCl 1 mg 01/12/25 18:55 01/13/25 05:31 Hydromorphone 1 Mg/Ml 1 Ml Syringe IVP 1 mg Q4HR PRN Administration Pain Hydroxyzine HCl 25 mg 01/12/25 19:22 Hydroxyzine Hcl 25 Mg Tab PO HS PRN Insomnia Heparin Sodium/Sodium Chloride 250 mls @ 10.07 mls/hr 01/12/25 17:30 01/13/25 01:20 25,000 unit/ Sodium Chloride IV 10 units/kg/hr .Q24H [facility] 8.392 mls/hr Titration Protocol 12 UNITS/KG/HR Sodium Chloride 1,000 mls @ 100 mls/hr 01/12/25 19:30 01/13/25 06:53 Saline 0.9% IV 100 mls/hr .Q10H [facility] Administration Insulin Aspart 0 unit 01/13/25 07:30 Insulin Aspart (Novolog) 100 Unit/Ml Vial SQ AC-TID [facility] Protocol Insulin Detemir 50 unit 01/12/25 21:00 01/12/25 21:33 Insulin Detemir (Levemir) 100 Unit/Ml Syr SQ 50 unit BID [facility] Administration Isosorbide Mononitrate 30 mg 01/13/25 09:00 Isosorbide Mononitrate Er 30 Mg Tab.Er.24h PO DAILY [facility] Levothyroxine Sodium 175 mcg 01/13/25 09:00 Levothyroxine 25 Mcg Tab PO DAILY [facility] Lisinopril 10 mg 01/13/25 09:00 Lisinopril 10 Mg Tab PO DAILY [facility] Metoprolol Tartrate 25 mg 01/12/25 21:00 01/12/25 20:35 Metoprolol Tartrate 25 Mg Tab PO 25 mg BID [facility] Administration Naloxone HCl 0.2 mg 01/12/25 19:18 Naloxone 0.4 Mg/Ml 1 Ml Vial IV Q2M PRN Opioid Reversal Ondansetron HCl 4 mg 01/12/25 19:18 01/13/25 05:29 Ondansetron 4 Mg/2 Ml Vial IVP 4 mg Q8HR PRN Administration Nausea And Vomiting Oxybutynin Chloride 10 mg 01/13/25 09:00 Oxybutynin 10 Mg Tab.Er.24 PO DAILY [facility] Intake and Output 01/12/25 01/13/25 01/13/25 22:59 06:59 14:59 Intake Total 77.036 Balance 77.036 Intake: Intake, IV Titration 77.036 Amount Heparin Sod,Pork in 0.45% 77.036 NaCl 25,000 unit In 0.45 % NaCl 1 250ml.bag @ 12 UNITS/KG/HR 10.07 mls/hr IV .Q24H [facility] Rx#: [id number] Other: Weight 83.915 kg 01/12/25 16:59 01/12/25 16:59
[2025-01-13 09:29] LABS: ALT 21 U/L (4-34); AST 24 U/L (14-36); African American GFR (CKD) 62 (>60 ml/min/1.73 sqM); Albumin 3.2 g/dL (3.5-5.0); Alkaline Phosphatase 98 U/L (38-126); Anion Gap 7 mmol/L; Blood Urea Nitrogen 24 mg/dL (7-17); Calcium 8.4 mg/dL (8.4-10.2); Carbon Dioxide 23 mmol/L (22-30); Chloride 108 mmol/L (98-107); Glucose 78 mg/dL (74-99); Non-African American GFR(CKD) 53 (>60 ml/min/1.73 sqM); Sodium 138 mmol/L (137-145); Total Bilirubin 0.4 mg/dL (0.2-1.3); Total Protein 5.9 g/dL (6.3-8.2)
[2025-01-13] MEDS: ISOSORBIDE MONONITRATE ER 30 MG TAB.ER.24H PO SCH (09:40)
[2025-01-13] MEDS: EZETIMIBE 10 MG TAB PO SCH (09:40)
[2025-01-13] MEDS: lisinopriL 10 MG TAB PO SCH (09:40)
[2025-01-13] MEDS: ESCITALOPRAM 10 MG TAB PO SCH (09:40)
[2025-01-13] MEDS: ASPIRIN 325 MG TAB PO STA (09:40)
[2025-01-13] MEDS: ATORVASTATIN 80 MG TAB PO STA (09:41)
[2025-01-13] MEDS: LEVOTHYROXINE 25 MCG TAB PO SCH (09:41)
[2025-01-13] MEDS: OXYBUTYNIN 10 MG TAB.ER.24 PO SCH (09:42)
[2025-01-13] MEDS: SODIUM CHLORIDE 0.9% 1,000 ML in EMPTY BAG 1 BAG IV SCH (09:47)
[2025-01-13] MEDS: IV FLUID CONTINUATION 1,000 ML IV ONE (09:53)
[2025-01-13] MEDS: HEPARIN SODIUM,PORCINE (1 ML) 2,500 UNIT in SODIUM CHLORIDE 0.9% 250 ML IRRIGATION ONE (09:54)
[2025-01-13] MEDS: HEPARIN SODIUM,PORCINE 10,000 UNIT in SODIUM CHLORIDE 0.9% 1,000 ML IRRIGATION ONE (09:54)
[2025-01-13] MEDS: fentaNYL (PF) 50 MCG/ML 2 ML AMP IVP ONE (10:17)
[2025-01-13] MEDS: MIDAZOLAM 2 MG/2 ML VIAL IVP ONE (10:21)
[2025-01-13] MEDS: LIDOCAINE 1% INJ 10MG/ML (20 ML MDV) SQ ONE (10:21)
[2025-01-13] MEDS: VERAPAMIL SYRINGE (5 MG/10 ML) INTRAARTER ONE (10:27)
[2025-01-13] MEDS: IOPAMIDOL-370 100ML BTL INJ ONE (10:41)
[2025-01-13] MEDS ORDERED: RX INFO: IV CONTRAST WAS GIVEN 1 EACH MISC MISCELLANE PRN (10:49)
[2025-01-13] MEDS ORDERED: HEPARIN SODIUM 1,000 UN/ML (10ML VL) IV PRN (10:51)
[2025-01-13] MEDS: ONDANSETRON 4 MG/2 ML VIAL IVP ONE (10:51)
--- NOTE | 2025-01-13 10:57 | P.CARDCATH ---
Date of Procedure: 01/13/25 Description of Procedure: Cardiac Catheterization: The patient is a 54-year-old female with known history of hypertension, hyperlipidemia and diabetes mellitus who presented to the emergency room with complaint of chest comfort, has been going on for few months but was worse yesterday. She had no acute ST segment changes or troponin elevations. Recommendations were made regarding cardiac catheterization, the risks and the complications were discussed with the patient who is in full understanding and a greement. Procedure Description: Patient was brought to hospital laboratory technician in fasting semi-sedated state after receiving Fentanyl and Benadryl achieiving moderate conscious sedated state. Using Xylocaine Anesthesia and modified Seldinger technique, a 6-[place] sheath was introduced in the right radial artery . Subsequently, selective coronary angiography was performed using a 5-[place] 3.5 bend David catheter. Multiple views of the coronary artery including hemiaxial views were obtained. The right David catheter was used to cross the aortic valve and LVEDP was calculated. Following that, catheter and sheath were removed. Hemostasis was obtained with deployment of vascular band . There was no immediate complication. Patient was returned to room in stable condition. Of note, the patient received a total of 4500 units of intravenous heparin as well as intra-arterial verapamil. Findings: Left main: This is a large size vessel, bifurcating into left circumflex and LAD, left main has no obstructive disease LAD: This is a large size vessel, reaching to the apex with a wraparound apex segment the LAD proximally has an eccentric 85 to 90% stenosis, the rest of the vessel has no high-grade stenosis. Left circumflex: This is a nondominant vessel giving rise to 2 obtuse marginal branch and subsequently totally occluded with minimal antegrade flow. RCA: This is a large dominant vessel, bifurcating distally to PDA and PLV. The RCA proximally and extending to the mid section has a tubular lesion up to 85%. There is a plaque in the PLV of 60 to 70%. The ostium of the PDA has an 80% stenosis Left Ventriculogram: Not performed Hemodynamics: There was no gradient across the aortic valve, LVEDP was 16-20 mmHg Conclusion: 1. Severe triple-vessel disease 2. Right dominance Recommendations: In view of her anatomy and the multivessel disease in addition to her history of diabetes I would recommend to undergo evaluation for possible CABG if she is felt not to be a good candidate for CABG then we will proceed with staged angioplasty. The findings and the recommendations were discussed with the patient and she was in full understanding and agreement. Duration of sedation is 21 minutes.
[2025-01-13 11:02] LABS: Glucose,Whole Blood 63 mg/dL (70-110)
[2025-01-13 11:39] LABS: Glucose,Whole Blood 77 mg/dL (70-110)
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
[2025-01-13] MEDS: SODIUM CHLORIDE 0.9% 1,000 ML IV SCH (13:18)
--- NOTE | 2025-01-13 13:35 | CT ---
EXAMINATION TYPE: CT chest wo con DATE OF EXAM: 01/13/2025 1:29 PM COMPARISON: Chest radiograph CLINICAL INDICATION: Female, 54 years old with history of eval aorta for clampability; PHH, Post CVL procedure, possible pre-operative planning per patient. TECHNIQUE: Multiple axial images were obtained through the chest. Sagittal and coronal reformats were created for review. MIP was performed on a separate workstation. Contrast used: mL of (None if empty) Oral contrast used: (None if empty) CT DLP: 696 mGycm, Automated exposure control for dose reduction was used. FINDINGS: LUNGS/ PLEURA: No focal consolidation, pneumothorax or pleural effusion. AIRWAY: Patent and unremarkable. HEART: Size within normal limits MEDIASTINUM: No gross evidence of adenopathy. VASCULATURE: No aortic aneurysm. No evidence for atherosclerosis or aneurysm identified. Three-vesse l aortic arch present. MUSCULOSKELETAL: Mild disc degeneration changes are present throughout the thoracolumbar spine second helga to osteophyte formation and facet joint arthropathy. SOFT TISSUES/LYMPH NODES: Unremarkable. LOWER NECK: No significant findings. UPPER ABDOMEN: Gallbladder surgically absent. IMPRESSION: 1. No acute process. 2. No significant atherosclerotic disease of aorta. Follow up recommendations for incidental pulmonary nodules, if there are any, are per [employer] or [employer]. [email or web address]://radiopaedia.org/articles/tcuvppgvcv-racposf-[email or web address]?lang=us [facility], , 01/13/2025 1:33 PM
[2025-01-13] MEDS: NITROGLYCERIN OINT 1 INCH/GM PACKET TOPICAL SCH (13:40)
[2025-01-13] MEDS: HEPARIN SOD,PORK IN 0.45% NACL 25,000 UNIT in 0.45% NACL 1 250ML.BAG IV SCH (13:40)
[2025-01-13 13:47] LABS: Basophils % (A) 0 %; Eosinophils # (A) 0.3 k/uL (0-0.7); Eosinophils % (A) 4 %; HGB 12.1 gm/dL (11.4-16.0); Lymphocytes # (A) 1.8 k/uL (1.0-4.8); Lymphocytes % (A) 27 %; MCH 28.7 pg (25.0-35.0); MCHC 31.7 g/dL (31.0-37.0); MCV 90.3 fL (80.0-100.0); Mean Platelet Volume 7.9; Monocytes # (A) 0.4 k/uL (0-1.0); Monocytes % (A) 6 %; Neutrophils % (A) 60 %; Platelet Count 227 k/uL (150-450); RDW 13.4 % (11.5-15.5); WBC 6.6 k/uL (3.8-10.6)
[2025-01-13 14:37] LABS: Partial Thromboplastin Time 44.4 sec (22.0-30.0); Prothrombin Time 11.1 sec (10.0-12.5)
--- NOTE | 2025-01-13 14:52 | P.HPIM ---
History of Present Illness H&P Date: 01/13/25 Chief Complaint: Chest pain Patient is a 54-year-old female with past medical history of hypothyroidism, hypertension, hyperlipidemia, insulin-dependent diabetes, CKD, and JEREMY who presented to the ED with chief complaint of chest pain which started Monday. She described it as centralized radiating to the left arm and onset was while she was at rest. She states the pain subsided and then came back yesterday around noon. Patient states she took a few nitro, but the pain did not subside. She also endorses some shortness of breath and orthopnea, requiring 2 pillows t o be propped at night. She states she has had an NH in October but cannot undergo cardiac cath due to poor renal function. She states her father had a history of strokes and CAD with stent placements. Patient denies any prior stenting or being on blood thinners. Patient currently endorsing some chest discomfort, shortness of breath and nausea. She denies any fevers, chills, vomiting, diarrhea, lower extremity edema. Vitals on admission temperature 98 F, heart rate 90 bpm, respiratory rate 18, blood pressure 159/85, O2 saturation 98% on room air EKG independently interpreted as sinus rhythm, ventricular rate 86 bpm QTc of 415 ms, T wave inversions in lateral leads CXR shows no acute cardiopulmonary process CT chest shows no acute process or significant atherosclerotic disease of aorta. Labs on admission show WBCs 8, hemoglobin 11.4, platelets 222. PT 10.9, INR 1, PTT 24.3. Sodium 137, potassium 4.7, chloride 112, bicarb 23, BUN 28, creatinine 1.21, glucose 157. Calcium 9, magnesium 1.8. Troponins x 3 negative. NT proBNP 2340. Lipase 114. Review of systems: Pertinent positives and negatives as discussed in HPI, a complete review of systems was performed and all other systems are negative. Allergies: As listed in chart PCP: Dr. Alexandro Moran Social history: Tobacco: none Alcohol: none Recreational drugs: none Travel: none Sick contacts: brothers at home Physical examination: Vital signs reviewed General: nontoxic, no distress, appears at stated age Derm: warm, dry, intact Head: atraumatic, normocephalic, symmetric Eyes: anicteric sclera Mouth: no lip lesion, mucus membranes moist Cardiovascular: S1 S2 reg, no murmur Lungs: CTA bilateral, no rhonchi, no rales, no accessory muscle use Abdominal: soft, non-tender to palpation, nondistended Extremities: No cyanosis, clubbing, or pedal edema. Neuro: Alert, Oriented to person, time and place, Gross neurological examination did not reveal any focal deficits. Cranial nerves II to XII grossly intact. Bilateral upper and lower extremity muscle strength intact and sensation intact. Psych: well appearing, appropriate affect Assessment/Plan: Patient is a 54-year-old female with past medical history of hypothyroidism, hypertension, hyperlipidemia, insulin-dependent diabetes, CKD, and JEREMY who presented to the ED with chief complaint of chest pain which started Monday. Patient will be admitted to internal medicine service. Active: Unstable angina Cardiac cath showed severe triple-vessel disease EKG independently interpreted as sinus rhythm, ventricular rate 86 bpm QTc of 415 ms, T wave inversions in lateral leads Troponin x 3 negative Follow-up echocardiogram Continue aspirin 81 mg po daily Continue atorvastatin 40 mg po qhs Cardiology consult Cardiothoracic surgery consult for CABG engine monitor Obtain lipid panel , A1C Nitro prn for chest pain Continue IV heparin per protocol Chronic kidney disease stage IIIa Continue to monitor renal function Continue IV fluids Hyperglycemia in insulin-dependent diabetic Accu-Cheks per ACHS protocol Moderate insulin sliding scale Hypoglycemia precautions Chronic: Hypertension Continue lisinopril 10 mg daily Continue metoprolol 25 mg twice daily Hypothyroidism Continue Synthroid 175 mcg daily Hyperlipidemia Continue Lipitor 40 mg daily Anxiety Continue Lexapro 10 mg daily Xanax as needed Insomnia Continue hydroxyzine 25 mg p.o. at bedtime as needed F: 0.9% NS at 100 mL/h E: Replete as needed N: Consistent carbohydrate, n.p.o. after midnight A: As tolerated DVT prophylaxis: IV heparin per protocol The patient is admitted with an anticipated more than 2 midnight stay for evaluation of unstable angina CODE STATUS: Full code Discussed with: Patient Anticipated discharge place: Pending clinical course Past Medical History Past Medical History: Chest Pain / Angina, Diabetes Mellitus, Hyperlipidemia, Hypertension, Osteoarthritis (OA) Additional Past Medical History / Comment(s): pancreatitis History of Any Multi-Drug Resistant Organisms: None Reported Past Surgical History: Back Surgery, Section, Joint Replacement, Ortho pedic Surgery Additional Past Surgical History / Comment(s): rt knee, pelvis, mady cataracts, retnial detatchment Past Psychological History: No Psychological Hx Reported Smoking Status: Current every day smoker Past Alcohol Use History: None Reported Past Drug Use History: None Reported - Past Family History Father Family Medical History: AFIB, Coronary Artery Disease (CAD), CVA/TIA, Diabetes Mellitus Additional Family Medical History / Comment(s): approximately 1 month ago Mother Family Medical History: Diabetes Mellitus, Hypertension Medications and Allergies Home Medications Medication Instructions Recorded Confirmed Type Acetaminophen-Codeine 300-30mg 1 tab PO Q4H PRN 01/12/25 01/12/25 History [Tylenol w/codeine #3] Aspirin EC [Ecotrin Low Dose] 81 mg PO DAILY 01/12/25 01/12/25 History Atorvastatin [Lipitor] 40 mg PO HS 01/12/25 01/12/25 History Escitalopram [Lexapro] 10 mg PO DAILY 01/12/25 01/12/25 History Ezetimibe [Zetia] 10 mg PO DAILY 01/12/25 01/12/25 History Gabapentin 300 mg PO TID 01/12/25 01/12/25 History Insulin Aspart [Insulin Aspart See Protocol SQ AC-TID 01/12/25 01/12/25 History Flexpen] Insulin Glargine (Lantus) [Lantus 50 unit SQ BID 01/12/25 01/12/25 History Vial] Isosorbide Mononitrate ER [Imdur] 30 mg PO DAILY 01/12/25 01/12/25 History Levothyroxine Sodium [Synthroid] 175 mcg PO DAILY 01/12/25 01/12/25 History Metoclopramide HCl [Reglan] 10 mg PO TID 01/12/25 01/12/25 History Metoprolol Tartrate [Lopressor] 25 mg PO BID 01/12/25 01/12/25 History Naproxen [Naprosyn] 500 mg PO BID-W/MEALS 01/12/25 01/12/25 History Oxybutynin ER [Ditropan XL] 10 mg PO DAILY 01/12/25 01/12/25 History Semaglutide [Ozempic] 1 mg SQ MO 01/12/25 01/12/25 History hydrOXYzine HCL [Atarax] 25 mg PO HS PRN 01/12/25 01/12/25 History lisinopriL [Zestril] 10 mg PO DAILY 01/12/25 01/12/25 History Allergies Allergy/AdvReac Type Severity Reaction Status Date / Time Sulfa (Sulfonamide Allergy Rash/Hives Verified 01/12/25 17:42 Antibiotics) morphine AdvReac headache Verified 01/12/25 17:42 Physical Exam Vitals: Vital Signs Temp Pulse Resp BP Pulse Ox 01/13/25 04:34 79 18 159/88 95 01/13/25 02:06 82 18 137/76 97 01/12/25 21:02 92 18 140/86 97 01/12/25 18:17 90 18 146/79 100 01/12/25 16:44 98 F 90 18 159/85 98 Intake and Output 01/12/25 01/13/25 01/13/25 22:59 06:59 14:59 Intake Total 77.036 Balance 77.036 Intake: Intake, IV Titration 77.036 Amount Heparin Sod,Pork in 0.45% 77.036 NaCl 25,000 unit In 0.45 % NaCl 1 250ml.bag @ 12 UNITS/KG/HR 10.07 mls/hr IV .Q24H [facility] Rx#: [id number] Other: Weight 83.915 kg Results CBC & Chem 7: 01/13/25 13:16 01/13/25 07:24 Labs: Abnormal Lab Results - Last 24 Hours (Table) 01/12/25 01/12/25 01/13/25 Range/Units 16:59 23:18 07:24 RBC 3.70 L (3.80-5.40) m/uL Hgb 10.9 L (11.4-16.0) gm/dL Hct 33.7 L (34.0-46.0) % APTT 78.1 H (22.0-30.0) sec BUN 28 H (7-17) mg/dL Creatinine 1.21 H (0.52-1.04) mg/dL Glucose 157 H (74-99) mg/dL
[2025-01-13 14:59] LABS: African American GFR (CKD) 56 (>60 ml/min/1.73 sqM); Blood Urea Nitrogen 24 mg/dL (7-17); Glucose 111 mg/dL (74-99); Non-African American GFR(CKD) 49 (>60 ml/min/1.73 sqM)
[2025-01-13] MEDS: ACETAMINOPHEN TAB 325 MG TAB PO PRN (15:50)
[2025-01-13] MEDS: polyethylene glycoL 3350 17 GM POWD.PACK PO SCH (15:50)
--- NOTE | 2025-01-13 15:52 | US ---
EXAMINATION TYPE: US vein mapping BILAT DATE OF EXAM: 01/13/2025 3:23 PM COMPARISON: NONE CLINICAL INDICATION: Female, 54 years old with history of preop cardiac surgery; , Preop- Cardiac Myron wilfred TECHNIQUE: Grayscale and color Doppler imaging of the lower extremity venous system. SIDE PERFORMED: Bilateral FINDINGS: PATIENT HISTORY: Smoker: previous Heart Disease: No Previous DVT: No Vascular Surgery: No Discoloration: No Hypertension: Diabetes: No Paralysis: No Varicosities: No Edema: No DUPLEX FINDINGS: Greater Saphenous: Color flow seen Measurements in mm: Right Greater Saphenous: Groin: 5.7x5.8 mm High Thigh: 4.2x3.1 mm Mid Thigh: 4.7x3.5 mm Above Knee: 5.0x3.7 mm Knee: 4.4x3.6 mm Below Knee: 2.9x2.0 mm Mid Calf: 3.3x2.8 mm At Ankle: 3.6x2.0 mm Left Greater Saphenous: Groin: 7.4x5.6 mm High Thigh: 5.0x3.7 mm Mid Thigh: 4.6x2.8 mm Above Knee: 5.6x3.3 mm Knee: 5.4x3.3 mm Below Knee: 2.8x2.8 mm Mid Calf: 3.2x2.2 mm At Ankle: 3.4x2.6 mm IMPRESSION: 1. No evidence for occlusion. 2. GSV measurements listed above. 3. Performing surgeon to determine viability as conduit. [facility], , 01/13/2025 3:50 PM
--- NOTE | 2025-01-13 15:53 | US ---
EXAMINATION TYPE: Pre-Operative Non-Invasive Evaluation of the hand for Potential Radial Artery [place], Measurements only DATE OF EXAM: 01/13/2025 3:23 PM CLINICAL INDICATION: Female, 54 years old with history of measurements only; , Preop- Cardiac Surgery TECHNIQUE:Grayscale and color Doppler imaging of the radial artery(s) SIDE PERFORMED: Left FINDINGS: Dominant hand: Right Duplex Findings: Radial Artery: Color flow seen Measurements in mm, transverse view: Left Radial: Proximal: 5.6x3.8 mm Mid: 2.5x2.1 mm Distal: 2.0x2.1 mm Deferred due to pt having IV IMPRESSION: 1. No evidence for vascular occlusion. 2. Measurements as described above. [facility], , 01/13/2025 3:50 PM
--- NOTE | 2025-01-13 15:54 | US ---
EXAMINATION TYPE: US carotid duplex BILAT DATE OF EXAM: 01/13/2025 COMPARISON: NONE CLINICAL INDICATION: Female, 54 years old with history of preop cardiac surgery; Additional History: .... TECHNIQUE: Grayscale, color Doppler and spectral Doppler evaluation of the bilateral carotid systems and vertebral arteries. Indirect Doppler criteria was utilized. FINDINGS: EXAM MEASUREMENTS: RIGHT: Peak Systolic Velocity (PSV) cm/sec ----- Right CCA: 75.6 ----- Right ICA: 129.7 ----- Right ECA: 98.5 ICA/CCA ratio: 1.7 RIGHT: End Diastole cm/sec ----- Right CCA: 18.9 ----- Right ICA: 48.9 ----- Right ECA: 9.5 LEFT: Peak Systolic Velocity (PSV) cm/sec ----- Left CCA: 62.5 ----- Left ICA: 78.8 ----- Left ECA: 86.1 ICA/CCA ratio: 1.3 LEFT: End Diastole cm/sec ----- Left CCA: 19.8 ----- Left ICA: 29.9 ----- Left ECA: 15.7 VERTEBRALS (direction of flow): Right Vertebral: Antegrade Left Vertebral: Antegrade Rhythm: Normal OIL WELL LOGGER NOTES: Very limited exam due to vessel tortuosity No plaque, elevated velocities or significant stenosis seen bilaterally Color Doppler imaging shows patency with blood flow throughout the carotid artery. Spectral waveforms are within normal limits. IMPRESSION: Limited examination due to vessel tortuosity. No ultrasound evidence for hemodynamically significant stenosis. Criteria for Assigning % of Stenosis / Diameter reduction (Estimation based on the indirect measurements of the internal carotid artery velocities (ICA PSV). 1. Normal (no stenosis)=ICA PSV < 125 cm/s: ratio < 2.0: ICA EDV<40 cm/s. 2. Less than 50% stenosis=ICA PSV < 125 cm/s: ratio < 2.0: ICA EDV<40 cm/s. 3. 50 to 69% stenosis=ICA PSV of 125 to 230 cm/s: ration 2.0 ? 4.0: ICA EDV 40-100 cm/s. 4. Greater than 70% stenosis to near occlusion= ICA PSV > 230 cm/s: ratio > 4.0: ICA EDV > 100 cm/s. 5. Near occlusion= ICA PSV velocities may be low or undetectable: variable ratio and ICA EDV. 6. Total occlusion=unable to detect flow. [facility], , 01/13/2025 3:52 PM
[2025-01-13] MEDS: NITROGLYCERIN SL TABS 0.4 MG TAB SUBLINGUAL PRN (15:55)
[2025-01-13 16:12] LABS: Chol/HDL Ratio 2.61 Ratio; LDL Cholesterol,Calculated 18.4 mg/dL (0.0-131.0)
[2025-01-13 16:23] LABS: Anion Gap 12 mmol/L; Calcium 8.6 mg/dL (8.4-10.2); Carbon Dioxide 22 mmol/L (22-30); Chloride 107 mmol/L (98-107); Potassium 4.2 mmol/L (3.5-5.1); Sodium 141 mmol/L (137-145)
[2025-01-13 16:40] LABS: Glucose,Whole Blood 93 mg/dL (70-110)
[2025-01-13 17:03] LABS: T4, Free (Free Thyroxine) 1.31 ng/dL (0.78-2.19)
[2025-01-13] MEDS: HYDROmorphone 0.5 MG/0.5 ML SYRINGE IVP PRN (17:41)
[2025-01-13 20:04] LABS: Glucose,Whole Blood 115 mg/dL (70-110)
[2025-01-13] MEDS: SENNOSIDES-DOCUSATE SODIUM 1 EACH TAB PO SCH (21:06)
[2025-01-13] MEDS: MUPIROCIN 2% OINT 22 GM TUBE NASAL SCH (21:06)
[2025-01-13] MEDS: ALPRAZolam 0.25 MG TAB PO PRN (21:07)
[2025-01-14 06:06] LABS: Glucose,Whole Blood 138 mg/dL (70-110)
[2025-01-14 06:25] LABS: Basophils % (A) 1 %; Eosinophils # (A) 0.3 k/uL (0-0.7); Eosinophils % (A) 6 %; HCT 36.7 % (34.0-46.0); HGB 11.3 gm/dL (11.4-16.0); Hypochromasia Moderate; Lymphocytes # (A) 2.2 k/uL (1.0-4.8); Lymphocytes % (A) 38 %; MCH 28.4 pg (25.0-35.0); MCHC 30.9 g/dL (31.0-37.0); Mean Platelet Volume 7.4; Monocytes # (A) 0.4 k/uL (0-1.0); Monocytes % (A) 7 %; Neutrophils # (A) 2.6 k/uL (1.3-7.7); Neutrophils % (A) 46 %; Platelet Count 226 k/uL (150-450); RBC 3.99 m/uL (3.80-5.40); RDW 13.3 % (11.5-15.5); WBC 5.6 k/uL (3.8-10.6)
[2025-01-14 06:36] LABS: INR 0.9 (<1.2); Partial Thromboplastin Time 85.5 sec (22.0-30.0); Prothrombin Time 10.6 sec (10.0-12.5)
[2025-01-14] MEDS ORDERED: HEPARIN SODIUM,PORCINE 10,000 UNIT in SODIUM CHLORIDE 0.9% 1,000 ML IRRIGATION PRN (07:00)
[2025-01-14] MEDS ORDERED: HEPARIN SODIUM,PORCINE (1 ML) 2,500 UNIT in SODIUM CHLORIDE 0.9% 250 ML IRRIGATION PRN (07:00)
[2025-01-14 07:02] LABS: African American GFR (CKD) 49 (>60 ml/min/1.73 sqM); Anion Gap 8 mmol/L; Blood Urea Nitrogen 26 mg/dL (7-17); Calcium 8.8 mg/dL (8.4-10.2); Carbon Dioxide 25 mmol/L (22-30); Chloride 106 mmol/L (98-107); Glucose 118 mg/dL (74-99); Non-African American GFR(CKD) 42 (>60 ml/min/1.73 sqM); Sodium 139 mmol/L (137-145)
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
[2025-01-14 11:42] LABS: Glucose,Whole Blood 159 mg/dL (70-110)
--- NOTE | 2025-01-14 13:21 | CA ---
Transthoracic Echo Report Name: Carolyn Tejada Age: 54 Gender: F : 1970 Exam Date: 01/13/2025 17:37 Exam Location: [facility] Ht (in): 68 Wt (lb): 185 Ordering Physician: Pernell Garg MD Attending/Referring Phys: Engine Manager Maria Luisa Carvalho RDCS Procedure CPT: Indications: Chest Pain Cardiac Hx: Technical Quality: Technically difficult study Contrast 1: Definity Total Dose (mL): 2 Contrast 2: Total Dose (mL): MEASUREMENTS (Male / Female) Normal Values 2D ECHO LV Diastolic Diameter PLAX 4.6 cm 4.2 - 5.9 / 3.9 - 5.3 cm LV Systolic Diameter PLAX 2.8 cm IVS Diastolic Thickness 1.1 cm 0.6 - 1.0 / 0.6 - 0.9 cm LVPW Diastolic Thickness 1.1 cm 0.6 - 1.0 / 0.6 - 0.9 cm LV Relative Wall Thickness 0.5 RV Internal Dim ED PLAX 3.1 cm LA Systolic Diameter LX 3.6 cm 3.0 - 4.0 / 2.7 - 3.8 cm LV Diastolic Volume MOD 4C 125.4 cm??? LV Systolic Volume MOD 4C 66.8 cm??? LV Ejection Fraction MOD 4C 46.7 % LV Cardiac Index MOD 4C 2255.3 cm???/min???m??? LV Diastolic Length 4C 8.2 cm LV Systolic Length 4C 7.3 cm LV Diastolic Volume MOD 2C 128.7 cm??? LV Systolic Volume MOD 2C 56.6 cm??? LV Ejection Fraction MOD 2C 56.0 % LV Cardiac Index MOD 2C 2775.5 cm???/min???m??? LV Diastolic Length 2C 8.2 cm LV Systolic Length 2C 7.2 cm LA Volume 45.7 cm??? 18 - 58 / 22 - 52 cm??? LA Volume Index 22.5 cm???/m??? 16 - 28 cm???/m??? M-MODE Aortic Root Diameter MM 2.9 cm DOPPLER AV Peak Velocity 107.0 cm/s AV Peak Gradient 4.6 mmHg AV Mean Velocity 79.7 cm/s AV Mean Gradient 2.8 mmHg AV Velocity Time Integral 25.3 cm Mitral E Point Velocity 77.2 cm/s Mitral A Point Velocity 95.2 cm/s Mitral E to A Ratio 0.8 MV Deceleration Time 161.9 ms MV E' Velocity 8.0 cm/s Mitral E to MV E' Ratio 9.6 FINDINGS Left Ventricle Left ventricular ejection fraction is estimated at 45-50 %. Mildly increased septal wall thickness. Mildly increased posterior wall thickness. Left ventricular cavity size normal. Apical septum apical inferior aldridge hypokinesis Right Ventricle Normal right ventricular size. Unable to estimate the right ventricular systolic pressure. Right Atrium Normal right atrial size. No right atrial thrombus or mass seen. Left Atrium Normal left atrial size. No left atrial thrombus or mass present. Mitral Valve Mitral valve thickened. Trace to mild mitral regurgitation. Aortic Valve Trileaflet aortic valve. No aortic valve stenosis or regurgitation. Tricuspid Valve Structurally normal tricuspid valve. No tricuspid stenosis, regurgitation or prolapse. Pulmonic Valve Pulmonic valve not well visualized. Mild pulmonic regurgitation. Pericardium No pericardial effusion. Aorta Normal size aortic root and proximal ascending aorta. CONCLUSIONS Mildly impaired LV function with EF between 45 to 50% Overall technically difficult study Previewed by: Dr. Arpan Broderick MD (Electronically Signed) Final Date: 14 January 2025 13:20
[2025-01-14 16:36] LABS: Glucose,Whole Blood 145 mg/dL (70-110)
--- NOTE | 2025-01-14 18:11 | P.PN ---
Subjective HISTORY OF PRESENT ILLNESS: This is a 54-year-old female with a past medical history significant for hypothyroidism, hypertension, hyperlipidemia, and diabetes. Patient does not follow with a networking technician. We have been asked to see the patient in consultation for chest pain and. Patient examined at the bedside in the ER. Patient states a couple days ago she started having chest pain but states she "didnt think much of it". She states she was not doing anything when it started. The pain then came back a couple days later and she also had radiation of the pain into her left arm. She gives additional history that she was hospitalized in October 2024 for chest pain. She states that she underwent an echocardiogram and a stress test at that time. She was told that "part of her heart was not working well". She states a cardiac catheterization was recommended however they decided not to do this due to her chronic kidney disease. She does report she gets occasional chest pain with ambulation. She reports mild chest discomfort this morning. She states the pain is sometimes worse with deep inspiration and also with chest wall palpation. She is a former cigarette smoker and quit smoking about a year ago. DIAGNOSTICS: - EKG reveals sinus mechanism with T wave inversions inferiorly. Repeat EKG reveals Sinus mechanism with T wave inversions in high lateral leads. - Chest xray negative for acute process - Laboratory data: WBC 8.0. Hemoglobin 11.4. Platelet count 222. Sodium 137. Potassium 4.7. BUN 28. Creatinine 1.21. Troponin negative x 3. proBNP 2340. - Current home cardiac medications include atorvastatin 80 mg at night, aspirin 81 mg daily, lisinopril 10 mg daily, Zetia 10 mg daily, metoprolol tartrate 25 mg twice a day, Imdur 30 mg daily - No previous echocardiogram, stress test, or cardiac catheterization available in EMR for review 01/14/2025 Patient is status post cardiac catheterization yesterday with Dr. Feliz revealing severe triple-vessel coronary artery disease. A consult was placed for CT surgery for further recommendations. Patient examined this afternoon at the bedside. Patient reports having mild chest discomfort earlier this morning. She denies any chest pain at the time of examination. She currently denies any shortness of breath. She remains on IV heparin. Echocardiogram completed revealing ejection fraction 45 to 50%, apical septum and apical inferior wall hypokinesis with trace to mild MR telemetry reveals sinus mechanism. Vital signs are stable. Most recent blood pressure 148/75. PHYSICAL EXAM: VITAL SIGNS: Reviewed. GENERAL: Well-developed in no acute distress. HEENT: Head is normocephalic. Pupils are equal, round. Sclerae anicteric. Mucous membranes of the mouth are moist. Neck supple. No JVD or thyromegaly LUNGS: Respirations even and unlabored. Lungs essentially clear to auscultation bilaterally. HEART: Regular rate and rhythm. S1 and S2 heard. ABDOMEN: Soft. Nondistended. Nontender. EXTREMITIES: Normal range of motion. No clubbing or cyanosis. Peripheral pulses intact. No lower extremity edema NEUROLOGIC: Awake and alert. Oriented x 3. ASSESSMENT: Chest pain with apparent recent abnormal echo and stress test, status post cardiac catheterization revealing triple-vessel coronary artery disease Hypertension Hyperlipidemia Diabetes Chronic kidney disease Hypothyroidism Obstructive sleep apnea Former nicotine dependence, patient quit smoking 1 year ago PLAN: Patient has been evaluated by CT surgery. Plan is for CABG tomorrow 01/15/2025 Continue IV heparin Continue additional cardiac medications Continue telemetry monitoring Further recommendations pending patient course Nurse practitioner note has been reviewed by physician. Signing provider agrees with the documented findings, assessment, and plan of care documented by COUNTER CASER as a scribe. Objective - Vital Signs Vital signs: Vital Signs Temp 98.3 F 01/14/25 16:00 Pulse 82 01/14/25 16:00 Resp 16 01/14/25 16:00 BP 148/75 01/14/25 16:00 Pulse Ox 97 01/14/25 16:00 FiO2 Intake & Output 01/13/25 01/14/25 01/14/25 18:59 06:59 18:59 Intake Total 931.479 730.000 Output Total 425 401 Balance 931.479 -425 329.000 Weight 83.915 kg 85.2 kg Intake: IV 387 Invasive Line 2 10 Intake, IV Titration 64.479 250.000 Amount Heparin Sod,Pork in 0.45% 64.479 NaCl 25,000 unit In 0.45 % NaCl 1 250ml.bag @ 12 UNITS/KG/HR 10.07 mls/hr IV .Q24H [facility] Rx#: [id number] Heparin Sod,Pork in 0.45% 250.000 NaCl 25,000 unit In 0.45 % NaCl 1 250ml.bag @ 12 UNITS/KG/HR 10.07 mls/hr IV .Q24H [facility] Rx#: [id number] Oral 480 480 Output: Urine 425 400 Stool 1 Other: Voiding Method Toilet Toilet Toilet # Voids 2 1 - Labs CBC & Chem 7: 01/14/25 05:15 01/14/25 05:15 Labs: Abnormal Lab Results - Last 24 Hours (Table) 01/13/25 01/13/25 01/14/25 Range/Units 19:39 20:01 05:15 Hgb (11.4-16.0) gm/dL MCHC (31.0-37.0) g/dL APTT 49.4 H (22.0-30.0) sec BUN (7-17) mg/dL Creatinine (0.52-1.04) mg/dL Glucose (74-99) mg/dL POC Glucose (mg/dL) 115 H (70-110) mg/dL Crossmatch See Detail 01/14/25 01/14/25 01/14/25 Range/Units 05:15 05:15 05:15 Hgb 11.3 L (11.4-16.0) gm/dL MCHC 30.9 L (31.0-37.0) g/dL APTT 85.5 H (22.0-30.0) sec BUN 26 H (7-17) mg/dL Creatinine 1.41 H (0.52-1.04) mg/dL Glucose 118 H (74-99) mg/dL POC Glucose (mg/dL) (70-110) mg/dL Crossmatch 01/14/25 01/14/25 01/14/25 Range/Units 06:04 11:41 15:58 Hgb (11.4-16.0) gm/dL MCHC (31.0-37.0) g/dL APTT 41.3 H (22.0-30.0) sec BUN (7-17) mg/dL Creatinine (0.52-1.04) mg/dL Glucose (74-99) mg/dL POC Glucose (mg/dL) 138 H 159 H (70-110) mg/dL Crossmatch 01/14/25 Range/Units 16:35 Hgb (11.4-16.0) gm/dL MCHC (31.0-37.0) g/dL APTT (22.0-30.0) sec BUN (7-17) mg/dL Creatinine (0.52-1.04) mg/dL Glucose (74-99) mg/dL POC Glucose (mg/dL) 145 H (70-110) mg/dL Crossmatch
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
[2025-01-14 19:54] LABS: Glucose,Whole Blood 170 mg/dL (70-110)
[2025-01-14] MEDS: INSULIN DETEMIR (LEVEMIR) 100 UNIT/ML SYR SQ SCH (20:24)
[2025-01-15 04:30] LABS: African American GFR (CKD) 57 (>60 ml/min/1.73 sqM); Anion Gap 9 mmol/L; Blood Urea Nitrogen 22 mg/dL (7-17); Calcium 8.6 mg/dL (8.4-10.2); Carbon Dioxide 22 mmol/L (22-30); Chloride 106 mmol/L (98-107); Glucose 140 mg/dL (74-99); Non-African American GFR(CKD) 50 (>60 ml/min/1.73 sqM); Potassium 4.2 mmol/L (3.5-5.1); Sodium 137 mmol/L (137-145)
[2025-01-15] MEDS: ASPIRIN 325 MG TAB PO ONE (04:52)
[2025-01-15] MEDS: ATORVASTATIN 10 MG TAB PO ONE (04:52)
[2025-01-15] MEDS: METOPROLOL TARTRATE 12.5 MG TAB PO ONE (04:53)
[2025-01-15 05:00] LABS: Glucose,Whole Blood 145 mg/dL (70-110)
[2025-01-15] MEDS ORDERED: NOREPINEPHRINE 4 MG in SODIUM CHLORIDE 0.9% 250 ML IV SCH (05:00)
--- NOTE | 2025-01-15 05:39 | P.PN ---
Subjective Progress Note Date: 01/14/25 Patient is a 54-year-old female with past medical history of hypothyroidism, hypertension, hyperlipidemia, insulin-dependent diabetes, CKD, and JEREMY who presented to the ED with chief complaint of chest pain which started Monday. She described it as centralized radiating to the left arm and onset was while she was at rest. She states the pain subsided and then came back yesterday around noon. Patient states she took a few nitro, but the pain did not subside. She also endorses some shortness of breath and orthopnea, requiring 2 pillows to be propped at night. She states she has had an IL in October but cannot undergo cardiac cath due to poor renal function. She states her father had a hi story of strokes and CAD with stent placements. Patient denies any prior stenting or being on blood thinners. Patient currently endorsing some chest discomfort, shortness of breath and nausea. She denies any fevers, chills, vomiting, diarrhea, lower extremity edema. Vitals on admission temperature 98 F, heart rate 90 bpm, respiratory rate 18, blood pressure 159/85, O2 saturation 98% on room air EKG independently interpreted as sinus rhythm, ventricular rate 86 bpm QTc of 415 ms, T wave inversions in lateral leads CXR shows no acute cardiopulmonary process CT chest shows no acute process or significant atherosclerotic disease of aorta. Labs on admission show WBCs 8, hemoglobin 11.4, platelets 222. PT 10.9, INR 1, PTT 24.3. Sodium 137, potassium 4.7, chloride 112, bicarb 23, BUN 28, creatinine 1.21, glucose 157. Calcium 9, magnesium 1.8. Troponins x 3 neg ative. NT proBNP 2340. Lipase 114. 01/14/2025 Patient is seen and evaluated in follow-up with multiple consultations following including cardiology and CT surgery. Patient scheduled for triple-vessel disease intervention on 01/15/2025. Patient will be n.p.o. at midnight. Blood sugars mildly elevated and patient concerned her long-acting insulin is not ordered. Will add low-dose long-acting twice daily and monitor closely as patient will be n.p.o. Patient will be going to ICU postsurgery and will be maintained on insulin drip. Will adjust once diet has been resumed. Review of systems: Constitutional: No reports of fatigue, fever, or chills Cardiovascular: No reports of chest pain or palpitations Respiratory: No reports of shortness of breath or cough GI: No reports of nausea, vomiting, or diarrhea : No reports of dysuria or retention Neurovascular: No reports of weakness or numbness All medications have been reviewed Physical examination: Vital signs reviewed General: nontoxic, no distress, appears at stated age Derm: warm, dry, intact Head: atraumatic, normocephalic, symmetric Eyes: anicteric sclera Mouth: no lip lesion, mucus membranes moist Cardiovascular: S1 S2 reg, no murmur Lungs: CTA bilateral, no rhonchi, no rales, no accessory muscle use Abdominal: soft, non-tender to palpation, nondistended Extremities: No cyanosis, clubbing, or pedal edema. Neuro: Alert, Oriented to person, time and place, Gross neurological examination did not reveal any focal deficits. Cranial nerves II to XII grossly intact. Bilateral upper and lower extremity muscle strength intact and sensation intact. Psych: well appearing, appropriate affect Assessment/Plan: Patient is a 54-year-old female with past medical history of hypothyroidism, hypertension, hyperlipidemia, insulin-dependent diabetes, CKD, and JEREMY who presented to the ED with chief complaint of chest pain which started Monday. Patient was admitted to internal medicine service. 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 Obtain lipid panel , A1C Nitro prn for chest pain Continue IV heparin per protocol Chronic kidney disease stage IIIa Continue to monitor renal function Continue IV fluids Hyperglycemia in insulin-dependent diabetic Accu-Cheks per ACHS protocol Moderate insulin sliding scale, as well as long-acting and will monitor closely, adjust insulins accordingly Hypoglycemia precautions Chronic: Hypertension Continue lisinopril 10 mg daily Continue metoprolol 25 mg twice daily Hypothyroidism Continue Synthroid 175 mcg daily Hyperlipidemia Continue Lipitor 40 mg daily Anxiety Continue Lexapro 10 mg daily Xanax as needed Insomnia Continue hydroxyzine 25 mg p.o. at bedtime as needed F: 0.9% NS at 100 mL/h E: Replete as needed N: Consistent carbohydrate, n.p.o. after midnight 01/15/2025 A: As tolerated DVT prophylaxis: IV heparin per protocol The patient is admitted with an anticipated more than 2 midnight stay for CABG CODE STATUS: Full code Discussed with: Patient Anticipated discharge place: Pending clinical course The impression and plan of care has been dictated by Sita Ibarra, Nurse Practitioner as directed. Dr. Effie MD I have performed a history and examination and MDM of this patient, discussed the same with the dictator, and agree with the dictator's assessment and plan as written ,documented as a scribe. Based on total visit time, I have performed more than 50% of the visit. Objective - Vital Signs Vital signs: Vital Signs Temp 98.2 F 01/14/25 08:39 Pulse 82 01/14/25 08:39 Resp 16 01/14/25 08:39 BP 154/82 01/14/25 08:39 Pulse Ox 98 01/14/25 08:39 FiO2 Intake & Output 01/13/25 01/14/25 01/14/25 18:59 06:59 18:59 Intake Total 931.479 197.036 Output Total 425 Balance 931.479 -425 197.036 Weight 83.915 kg 85.2 kg Intake: IV 387 Invasive Line 2 10 Intake, IV Titration 64.479 197.036 Amount Heparin Sod,Pork in 0.45% 64.479 NaCl 25,000 unit In 0.45 % NaCl 1 250ml.bag @ 12 UNITS/KG/HR 10.07 mls/hr IV .Q24H [facility] Rx#: [id number] Heparin Sod,Pork in 0.45% 197.036 NaCl 25,000 unit In 0.45 % NaCl 1 250ml.bag @ 12 UNITS/KG/HR 10.07 mls/hr IV .Q24H [facility] Rx#: [id number] Oral 480 Output: Urine 425 Other: Voiding Method Toilet Toilet # Voids 2 1 - Labs CBC & Chem 7: 01/14/25 05:15 01/15/25 03:05 Labs: Abnormal Lab Results - Last 24 Hours (Table) 01/13/25 01/13/25 01/13/25 Range/Units 07:24 07:24 11:01 Hgb (11.4-16.0) gm/dL MCHC (31.0-37.0) g/dL APTT (22.0-30.0) sec BUN (7-17) mg/dL Creatinine (0.52-1.04) mg/dL Glucose (74-99) mg/dL POC Glucose (mg/dL) 63 L (70-110) mg/dL Hemoglobin A1c 7.9 H (<=6.0) % Triglycerides 204.00 H (0.00-149.00) mg/dL VLDL Cholesterol, Calc 40.80 H (5.00-40.00) mg/dL HDL Cholesterol 36.80 L (40.00-60.00) mg/dL TSH (0.465-4.680) mIU/L 01/13/25 01/13/25 01/13/25 Range/Units 13:16 13:16 13:16 Hgb (11.4-16.0) gm/dL MCHC (31.0-37.0) g/dL APTT 44.4 H (22.0-30.0) sec BUN 24 H (7-17) mg/dL Creatinine 1.25 H (0.52-1.04) mg/dL Glucose 111 H (74-99) mg/dL POC Glucose (mg/dL) (70-110) mg/dL Hemoglobin A1c (<=6.0) % Triglycerides (0.00-149.00) mg/dL VLDL Cholesterol, Calc (5.00-40.00) mg/dL HDL Cholesterol (40.00-60.00) mg/dL TSH 6.070 H (0.465-4.680) mIU/L 01/13/25 01/13/25 01/14/25 Range/Units 19:39 20:01 05:15 Hgb 11.3 L (11.4-16.0) gm/dL MCHC 30.9 L (31.0-37.0) g/dL APTT 49.4 H (22.0-30.0) sec BUN (7-17) mg/dL Creatinine (0.52-1.04) mg/dL Glucose (74-99) mg/dL POC Glucose (mg/dL) 115 H (70-110) mg/dL Hemoglobin A1c (<=6.0) % Triglycerides (0.00-149.00) mg/dL VLDL Cholesterol, Calc (5.00-40.00) mg/dL HDL Cholesterol (40.00-60.00) mg/dL TSH (0.465-4.680) mIU/L 01/14/25 01/14/25 01/14/25 Range/Units 05:15 05:15 06:04 Hgb (11.4-16.0) gm/dL MCHC (31.0-37.0) g/dL APTT 85.5 H (22.0-30.0) sec BUN 26 H (7-17) mg/dL Creatinine 1.41 H (0.52-1.04) mg/dL Glucose 118 H (74-99) mg/dL POC Glucose (mg/dL) 138 H (70-110) mg/dL Hemoglobin A1c (<=6.0) % Triglycerides (0.00-149.00) mg/dL VLDL Cholesterol, Calc (5.00-40.00) mg/dL HDL Cholesterol (40.00-60.00) mg/dL TSH (0.465-4.680) mIU/L
[2025-01-15] MEDS: LACTATED RINGERS 1,000 ML IV SCH (07:00)
[2025-01-15] MEDS: IV FLUID CONTINUATION 1,000 ML IV ONE (07:00)
[2025-01-15 07:23] LABS: Glucose,Whole Blood 139 mg/dL (70-110)
[2025-01-15] MEDS ORDERED: PHENYLEPHRINE-0.9% NACL SYG 1,000 MCG/10 ML SYRINGE ONE (08:16)
[2025-01-15] MEDS ORDERED: PROPOFOL 10 MG/ML 20 ML VIAL IV ONE (08:16)
[2025-01-15] MEDS ORDERED: MIDAZOLAM HCL 10 MG/10 ML VIAL ONE (08:16)
[2025-01-15] MEDS ORDERED: CALCIUM CHLORIDE 100 MG/ML 10 ML SYRINGE ONE (08:16)
[2025-01-15] MEDS ORDERED: VECURONIUM 10 MG VIAL IV ONE (08:16)
[2025-01-15] MEDS ORDERED: PROTAMINE SULFATE 10 MG/ML 25 ML VIAL IV ONE (08:16)
[2025-01-15] MEDS ORDERED: WATER FOR INJECTION, STERILE 10 ML VIAL IV ONE (08:16)
[2025-01-15] MEDS ORDERED: HEPARIN SODIUM,PORCINE 10,000 UNIT/ML 1 ML VIAL ONE (08:16)
[2025-01-15] MEDS ORDERED: ALBUMIN HUMAN 5% (25gm) 500 ML VIAL IVPB ONE (08:16)
[2025-01-15] MEDS ORDERED: fentaNYL (PF) 50 MCG/ML 50 ML VIAL ONE (08:16)
[2025-01-15] MEDS ORDERED: TRANEXAMIC 1,000 MG/100ML-NACL PREMIX BAG ONE (08:16)
--- NOTE | 2025-01-15 08:46 | P.ANPRN ---
Procedure Note - Anesthesia - Invasive Line Right Central Line Time Out Performed: Yes (0748) Date of Procedure: 01/15/25 Time of Procedure: 08:04 Location of Patient: PreOp Preparation: Sterile Prep, Sterile Dressing Central Line Location: Internal Jugular (right IJ Cordis) Ultrasound Used: Yes Purpose - Visualization and Identification of Vasculature: Yes Needle Guage: 18g angio Image Stored and Saved: Yes Narrative: Invasive line placement per sterile protocol utilized. Anesthesia note Procedure: Right internal jugular central venous catheter insertion: 8.5-Mexican Cordis Sterile protocol followed. Right neck prepped. Ultrasound used. Lidocaine 1% used. Using ultrasound local anesthetic was instilled site over right Internal Jugular vein. Angiocath was used to gain access via ultrasound. Once free flow non-pulsatile blood flow was confirmed, 12 inch extension tubing was then placed on Angiocath. Once central venous pressure was confirmed, J-wire was then placed through Angiocath. Angiocath was then withdrawn. Local was instilled at J-wire site. Small skin peter was then made with provided sterile scalpel. 8.5- Mexican Cordis was then inserted over the wire while maintaining control of wire at all times. Uneventful insertion with dilation. Free flow nonpulsatile blood flow through Cordis. Hooked up to IV tubing. Secured with suture. Dressings applied. Drapes Removed. Attempts x1.
--- NOTE | 2025-01-15 08:47 | P.ANPRN ---
Procedure Note - Anesthesia - Invasive Line Right Corolla Cresencio Time Out Performed: Yes (0748) Date of Procedure: 01/15/25 Time of Procedure: 08:18 Location of Patient: Phase I Preparation: Sterile Prep, Sterile Dressing Cor[place] Cresencio Line Location: Internal Jugular (Right) Ultrasound Used: No Purpose - Visualization and Identification of Vasculature: No Image Stored and Saved: No Narrative: Invasive line placement per sterile protocol utilized. Anesthesia note Procedure right Corolla-Cresencio catheter placed through right internal jugular central venous catheter Sterile protocol maintained from previous procedure. Corolla-Cresencio catheter sterilely placed in sheath and flushed prior to insertion. After advancing 15 cm Corolla-Cresencio catheter was then slowly inserted with balloon up. Advanced through CVP, RV to PA waveform. Corolla-Cresencio catheter wedged around 46 cm. Balloon down. Catheter withdrawn 5 cm. . No wedge. Proximal and distal sites locked on sheath. Attempts x1. Sterile drapes removed and dressings applied.
[2025-01-15 09:34] LABS: ABG Base Excess -1.2 mmol/L; ABG Glucose Whole Blood 112 mg/dL (75-99); ABG HCO3 24 mmol/L (21-25); ABG Hematocrit 27 % (34.0-46.0); ABG Ionized Calcium 4.7 mg/dL (4.5-5.3); ABG Lactic Acid Whole Blood 0.7 mmol/L (0.5-1.6); ABG PCO2 40 mmHg (35-45); ABG PH 7.38 (7.35-7.45); ABG PO2 126 mmHg (83-108); ABG Potassium Whole Blood 4.1 mmol/L (3.4-4.5); ABG Sodium Whole Blood 141 mmol/L (135-146); ABG TCO2 23 mmol/L (19-24)
--- NOTE | 2025-01-15 10:03 | P.ANPRN ---
Procedure Note - Anesthesia - YEISON Intraop Pre Bypass YEISON Intraop - Anesthesia Indication: CAD Date of Procedure: 01/15/25 Pre-operative Diagnosis: cad Post-operative Diagnosis: cad Surgeon: Philomena Armstrong Ejection Fraction: Normal Regional Wall Motion Abnormalities: Other (HYPOKINETIC SEPTUM , AKINETIC APICAL SEPTUM) Left Ventricle Hypertrophy: No R. Ventricle Function: Normal Anatomy: Trileaflet Aortic Stenosis: None Aortic Regurgitation: None Mitral Stenosis: None Mitral Regurgitation: Trace Tricuspid Stenosis: None Tricuspid Regurgitation: Trace Pulmonic Stenosis: None Pulmonic Regurgitation: None R. Atrial Dilation: No R. Atrial PFO: No L. Atrial Dilation: No Aortic Dissection: No Aortic Calcification: None Plural Effusion: None
[2025-01-15] MEDS: DILTIAZEM 125 MG in SODIUM CHLORIDE 0.9% 100 ML IV SCH (10:23)
[2025-01-15] MEDS: HEPARIN SODIUM,PORCINE (1 ML) 5,000 UNIT in SODIUM CHLORIDE 0.9% 500 ML 500 ML IV ONE (10:24)
[2025-01-15] MEDS: ceFAZolin 1,000 MG in SODIUM CHLORIDE 0.9% IRRIGATIO 1,000 ML IRRIGATION ONE (10:24)
[2025-01-15] MEDS: PAPAVERINE 360 MG in SODIUM CHLORIDE 0.9% 90 ML IV ONE (10:24)
[2025-01-15 11:30] LABS: ABG Base Excess -1.8 mmol/L; ABG Glucose Whole Blood 98 mg/dL (75-99); ABG HCO3 23 mmol/L (21-25); ABG Oxygen Saturation 98.6 % (94-97); ABG PCO2 36 mmHg (35-45); ABG PH 7.41 (7.35-7.45); ABG PO2 206 mmHg (83-108); ABG TCO2 22 mmol/L (19-24)
[2025-01-15 11:34] LABS: ABG Base Excess -1.5 mmol/L; ABG Glucose Whole Blood 99 mg/dL (75-99); ABG HCO3 23 mmol/L (21-25); ABG Ionized Calcium 4.6 mg/dL (4.5-5.3); ABG Lactic Acid Whole Blood 0.6 mmol/L (0.5-1.6); ABG Oxygen Saturation 98.5 % (94-97); ABG PCO2 37 mmHg (35-45); ABG PO2 220 mmHg (83-108); ABG Potassium Whole Blood 3.7 mmol/L (3.4-4.5); ABG Sodium Whole Blood 141 mmol/L (135-146); ABG TCO2 22 mmol/L (19-24)
[2025-01-15 12:30] LABS: ABG Glucose Whole Blood 91 mg/dL (75-99); ABG HCO3 26 mmol/L (21-25); ABG Ionized Calcium 4.1 mg/dL (4.5-5.3); ABG Lactic Acid Whole Blood 1.2 mmol/L (0.5-1.6); ABG Oxygen Saturation 98.4 % (94-97); ABG PCO2 34 mmHg (35-45); ABG PH 7.48 (7.35-7.45); ABG Potassium Whole Blood 3.5 mmol/L (3.4-4.5); ABG Sodium Whole Blood 142 mmol/L (135-146); ABG TCO2 25 mmol/L (19-24)
[2025-01-15 13:03] LABS: ABG Base Excess 0.2 mmol/L; ABG Glucose Whole Blood 114 mg/dL (75-99); ABG HCO3 25 mmol/L (21-25); ABG Ionized Calcium 4.2 mg/dL (4.5-5.3); ABG Oxygen Saturation 98.9 % (94-97); ABG PCO2 42 mmHg (35-45); ABG PH 7.39 (7.35-7.45); ABG PO2 377 mmHg (83-108); ABG Sodium Whole Blood 144 mmol/L (135-146); ABG TCO2 25 mmol/L (19-24)
[2025-01-15 13:05] LABS: ABG Glucose Whole Blood 111 mg/dL (75-99); ABG HCO3 25 mmol/L (21-25); ABG Ionized Calcium 4.2 mg/dL (4.5-5.3); ABG Lactic Acid Whole Blood 1.5 mmol/L (0.5-1.6); ABG Oxygen Saturation 98.6 % (94-97); ABG PCO2 42 mmHg (35-45); ABG PH 7.38 (7.35-7.45); ABG PO2 350 mmHg (83-108); ABG Potassium Whole Blood 4.5 mmol/L (3.4-4.5); ABG Sodium Whole Blood 142 mmol/L (135-146); ABG TCO2 25 mmol/L (19-24)
[2025-01-15 13:22] LABS: ABG Hematocrit 22 % (34.0-46.0); ABG Ionized Calcium 4.6 mg/dL (4.5-5.3); ABG Lactic Acid Whole Blood 0.7 mmol/L (0.5-1.6); ABG Potassium Whole Blood 3.7 mmol/L (3.4-4.5); ABG Sodium Whole Blood 141 mmol/L (135-146)
[2025-01-15 13:23] LABS: ABG Hematocrit 22 % (34.0-46.0)
[2025-01-15 13:25] LABS: ABG Hematocrit 17 % (34.0-46.0); ABG PO2 >420 mmHg (83-108)
[2025-01-15 13:28] LABS: ABG Hematocrit 19 % (34.0-46.0); ABG Lactic Acid Whole Blood 1.4 mmol/L (0.5-1.6); ABG Potassium Whole Blood 4.5 mmol/L (3.4-4.5)
[2025-01-15 13:30] LABS: ABG Hematocrit 19 % (34.0-46.0)
[2025-01-15 13:31] LABS: ABG Base Excess 0.2 mmol/L; ABG Glucose Whole Blood 125 mg/dL (75-99); ABG HCO3 26 mmol/L (21-25); ABG Ionized Calcium 4.2 mg/dL (4.5-5.3); ABG Lactic Acid Whole Blood 1.3 mmol/L (0.5-1.6); ABG Oxygen Saturation 98.9 % (94-97); ABG PCO2 46 mmHg (35-45); ABG PH 7.36 (7.35-7.45); ABG PO2 387 mmHg (83-108); ABG Potassium Whole Blood 4.7 mmol/L (3.4-4.5); ABG Sodium Whole Blood 142 mmol/L (135-146); ABG TCO2 25 mmol/L (19-24)
[2025-01-15 13:38] LABS: ABG Hematocrit 18 % (34.0-46.0)
[2025-01-15 14:05] LABS: ABG Base Excess -1.6 mmol/L; ABG Glucose Whole Blood 120 mg/dL (75-99); ABG HCO3 24 mmol/L (21-25); ABG Ionized Calcium 4.2 mg/dL (4.5-5.3); ABG Lactic Acid Whole Blood 1.3 mmol/L (0.5-1.6); ABG Oxygen Saturation 98.7 % (94-97); ABG PCO2 46 mmHg (35-45); ABG PH 7.33 (7.35-7.45); ABG PO2 346 mmHg (83-108); ABG Potassium Whole Blood 4.5 mmol/L (3.4-4.5); ABG Sodium Whole Blood 143 mmol/L (135-146); ABG TCO2 24 mmol/L (19-24)
[2025-01-15 14:19] LABS: ABG Hematocrit 16 % (34.0-46.0)
--- NOTE | 2025-01-15 15:29 | P.ANPRN ---
Procedure Note - Anesthesia - YEISON Intraop Post Bypass YEISON Intraop Post Bypass Procedure Performed: Cabg Left Ventricle: wnl Ejection Fraction: Normal Regional Wall Motion Abnormalities: Other (same but basally less hypokinesis of the septal and posterior segments) R. Ventricle Function: Normal Aortic Valve: Unchanged Mitral Valve: 1+MR Tricuspid: Unchanged Pulmonic: Unchanged Aortic Dissection: No
[2025-01-15] MEDS: INSULIN REGULAR 100 UNIT in SODIUM CHLORIDE 0.9% 100 ML IV SCH ×2 (16:15→18:31)
[2025-01-15] MEDS ORDERED: Potassium Replacement Protocol 1 EACH MISC MISCELLANE PRN (16:26)
[2025-01-15] MEDS ORDERED: Phosphorus Replacement Protoco 1 EACH MISC MISCELLANE PRN (16:26)
[2025-01-15] MEDS ORDERED: DEXTROSE 50% SYRINGE 50 ML IVP PRN ×2 (16:26)
[2025-01-15] MEDS ORDERED: BENZOCAINE/MENTHOL LOZENG 1 EACH LOZENGE MUCOUS MEM PRN (16:26)
[2025-01-15] MEDS ORDERED: CALCIUM GLUCONATE IN NACL 2 GM in SALINE 1 100ML.BAG IVPB PRN (16:26)
[2025-01-15] MEDS ORDERED: AMIODARONE 360 MG in DEXTROSE 5% IN WATER 200 ML IV PRN (16:26)
[2025-01-15] MEDS ORDERED: DEXMEDETOMIDINE/0.9% NACL(PMX) 400 MCG in EMPTY BAG 1 BAG IV SCH (16:26)
[2025-01-15] MEDS ORDERED: Magnesium Replacement Protocol 1 EACH MISC MISCELLANE PRN (16:26)
[2025-01-15] MEDS ORDERED: hydrALAZINE HCL 20 MG/ML 1 ML VIAL IVP PRN (16:26)
[2025-01-15] MEDS ORDERED: IPRATROPIUM-ALBUTEROL 3 ML NEB INHALATION PRN (16:26)
[2025-01-15] MEDS ORDERED: AMIODARONE 450 MG in DEXTROSE 5% IN WATER 250 ML IV PRN (16:26)
[2025-01-15] MEDS ORDERED: METOCLOPRAMIDE 5 MG/ML 2 ML VIAL IVP PRN (16:26)
[2025-01-15] MEDS ORDERED: DEXTROSE 5% IN WATER 100 ML with AMIODARONE 150 MG IV PRN (16:26)
[2025-01-15 16:30] LABS: Glucose,Whole Blood 108 mg/dL (70-110)
--- NOTE | 2025-01-15 16:37 | P.OP ---
Date of Procedure: 01/15/25 Preoperative Diagnosis: Triple-vessel coronary artery disease with non-ST elevation myocardial infarction, type I poorly controlled diabetes mellitus, hypertension, hyperlipidemia, obesity, chronic kidney disease, gastroparesis, mild left ventricular dysfunction Postoperative Diagnosis: Same Procedure(s) Performed: 1triple-vessel coronary artery bypass grafting using the in situ left intramammary artery to the left anterior descending artery, reverse saphenous vein graft from the aorta to the obtuse marginal artery, reverse saphenous vein graft from the aorta to the posterior descending artery 2exclusion of the left atrial appendage using a 35mm AtriClip 3endoscopic harvesting of the left radial artery that was not even used at the end in view of the small caliber 4endoscopic harvesting of the right greater saphenous vein 5intraoperative graft flow measurements using the Actions system 6intraoperative transesophageal echocardiogram and epiaortic scanning Implants: 35 mm AtriClip Anesthesia: TIM Surgeon: Philomena Armstrong Transitional Studies Instructor #1: Johnny Duffy Transitional Studies Instructor #2: Mercedes Pickard Pathology: none sent Condition: stable Disposition: ICU Indications for Procedure: Patient is a 54 years old lady with the above comorbidities who was admitted couple of months ago at another hospital with chest pain with positive enzymes however her creatinine was around 2.2 and she had an HbA1c of 14. Accardi catheterization was not done in view of her kidney disease at that point. Patient was also diagnosed with appendicitis at that time that they elected to treat with antibiotic. Patient was admitted this time around to [facility] with 2 days history of on and off chest pain that had positive enzymes. Cardiac catheterization performed showed severe proximal LAD and severe proximal RCA disease as well as totally occluded circumflex system. Ejection fraction on echo was mildly depressed with a akinetic distal anterior apical wall and no significant valvular abnormalities. Her HbA1c was better this time around around 8. The STS risk score was calculated discussed with her she understood it and agreed to proceed. Operative Findings: Good conduits except small radial artery that was not used. Somewhat intermediate disease. We found that totally occluded large obtuse marginal artery in the mid ventricular aspect. Small posterolateral branch of the RCA not bypassable. Mild left ventricular dysfunction with mild mitral valve regurgitation. Excellent graft flows x 3. Description of Procedure: Patient in supine position in the preoperative holding area right internal jugular [place]-Cresencio catheter and the right radial arterial line were placed. Cardiac index with 2 and PA pressure was 40/20. Subsequently she was brought to the operating room where general endotracheal anesthesia was induced uneventfully. A Sellers catheter was inserted. She received 2 g cefazolin intravenously. Subsequently the chest abdomen both lower extremities and left upper extremity were prepped and draped using ChloraPrep. Ioban was used to cover the skin. Transesophageal echocardiogram confirmed the preoperative finding of mild left ventricular dysfunction with akinetic apex and mild mitral valve regurgitation. Midline sternotomy was performed and the bone was moderately osteoporotic. The left hemisternum was elevated and the left internal mammary artery was harvested in a semicircular Geneyes fashion. The left pleura was intentionally open in this process and was drained with a 19 [place] Papi drain. Patient was given 5000 units of heparin and the mammary artery was double clipped distally and transected had an excellent pulsatile flow in it and was around 1.5 m in diameter. The right pleura remained grossly intact. In the same setting the left radial artery was exposed at the wrist and a clamping trial revealed preserved signal in the left index O2 saturation probe. Subsequently the artery was harvested endoscopically without using a tourniquet. Forearm incisions were closed over a drain. The radial artery was prepared by incising the fascia all along its volar aspect and clipping all its branches. It appeared to be a read on the small side less than 2 mm in mammogram Bucet. Also in the same setting the right greater saphenous vein was harvested endoscopically from groin to above ankle level after administration of 2500 use of heparin. Leg incisions were closed over a drain. The vein was prepared by tying all its branches. It was of excellent quality around 4 mm in diameter. Ankeney retractor was used. Thick mediastinal fat were transected between 2 ties and epiaortic scanning revealed no protruding atheroma in the ascending aorta. Pericardium was opened in an inverted T fashion pericardial cradle was created. Finding included a normal soft short aorta and a normal-sized heart. After systemic heparinization the placement of respective pledgeted pursestring aortic cannulation with a 21 [place] slow flow cannula and venous cannulation via the right atrial appendage with a 3 stage XX 9 [place] cannula was performed. Antegrade as well as retrograde cardioplegia catheter were placed. Contributing bypass was initiated and patient temperature was allowed to drift down to 34 C. With a heart empty and beating we looked at the target. The LAD was intramyocardial and we found it as we followed a small diagonal artery retrograde. Was good caliber. Looking at the lateral wall we could identify a totally occluded obtuse marginal artery that seems to be of good caliber. The posterior descending artery was identified beyond its proximal plaque. The posterolateral branch of the right coronary artery was little longer however was small in caliber not bypassable. Aorta was clamped and during aortic clamping myocardial protection was achieved initial dose of 800 cc of antegrade cold blood cardioplegia followed by 300 cc of retrograde cold blood cardioplegia. All subsequent doses were given retrograde at 15 minutes interval. We started by excluding left atrial appendage by deploying a 35mm AtriClip at its base. The first this anastomosis was been a good segment of vein and the 1.7 mm p roximal aspect of the posterior descending artery using Prolene 7 0 in continuous fashion. The second this anastomosis was seen another segment of vein of good caliber and the 1.75 mm totally occluded mid ventricular obtuse marginal artery using Prolene 7 0 in continuous fashion. The third and last this anastomosis was between the in situ left intramammary artery that passed in the deep groove in the left pleuropericardial fat and anastomosed to the mid left anterior descending artery where it was around 1 point centimeter in diameter using Prolene 7 0 in continuous fashion. Satisfied with the distal anastomosis rewarming was started as we punched out 2 more time to perform the 2 proximal stenosis of the vein graft separately using running Prolene. Patient was given 1 L of warm blood retrograde as were constructing the proximal anastomosis and was given lidocaine and magnesium. Patient was placed in Trendelenburg position after de-airing maneuver the aorta was unclamped. Patient regained spontaneous junctional rhythm. 2 monopolar atrial pacing wires were affixed to the respective pursestring on the right atrium and x2 19 [place] Papi drain were left substernally. We established a pacing at 80 with good conduction, and we were able to wean off cardiac bypass x2 with without the need of any inotropic or vasopressors. YEISON showed good left ventricular function. At that point we proceeded that formal graft flow measurement. The 4 mm probe was selected. The flow into the vein to the posterior descending artery was 76 mL/min, pulsatile index of 1.1 diastolic filling of 58%. The flow into the vein to the first obtuse marginal artery was 45 mL/min, pulsatility index of 1.9 and diastolic filling of 52%. The flow into the left intramammary artery to the left anterior descending artery was 123 mL/min, pulsatility index of 1.7 diastolic filling of 74% all showing excellent functioning graft. With that all pump suckers were stopped as we gave test dose followed by full dose protamine. Decannulation followed. The venous cannulation site required reinforcement with 4-0 Prolene. Mediastinal fat and pericardial fat were loosely appreciated over the graft aorta and partially over the right ventricle. After ensuring adequate hemostasis hemodynamic after correct sponge instrument and needle count the sternum was closed using 5 [id number] Kimberly cable a fter interposing fibrillar between the sternal edges. Thorough irrigation with cefazolin followed. The rest of closure proceeded in layers. Skin glue was applied. Patient received 1 unit of packed red blood cells on pump and around 400 cc of Cell Saver blood. She was transferred to the ICU in stable condition with excellent hemodynamics with a cardiac index of 3.6 PA pressure of 30/15 atrial paced at 80 with a mean arterial pressure of 70.
[2025-01-15] MEDS: CLEVIDIPINE BUTYRATE 25 MG in EMPTY BAG 1 BAG IV SCH (16:41)
[2025-01-15] MEDS: NITROGLYCERIN-D5W PMX 50 MG in DEXTROSE/WATER 1 250ML.BAG IV SCH (16:41)
[2025-01-15 16:42] LABS: Basophils % (A) 0 %; Eosinophils # (A) 0.2 k/uL (0-0.7); Eosinophils % (A) 3 %; HCT 20.7 % (34.0-46.0); Lymphocytes # (A) 0.7 k/uL (1.0-4.8); Lymphocytes % (A) 11 %; MCH 29.4 pg (25.0-35.0); MCV 88.9 fL (80.0-100.0); Mean Platelet Volume 9.4; Monocytes # (A) 0.4 k/uL (0-1.0); Monocytes % (A) 5 %; Neutrophils # (A) 5.5 k/uL (1.3-7.7); Neutrophils % (A) 81 %; RBC 2.33 m/uL (3.80-5.40); RDW 13.7 % (11.5-15.5)
[2025-01-15] MEDS: SODIUM CHLORIDE 0.9% 1,000 ML IV SCH (16:42)
--- NOTE | 2025-01-15 16:44 | XR ---
EXAMINATION TYPE: XR chest 1V portable DATE OF EXAM: 01/15/2025 4:39 PM COMPARISON: 01/12/2025 CLINICAL INDICATION: Female, 54 years old with history of Post Operative Cardiac Surgery, TECHNIQUE: XR chest 1V portable view(s) obtained. FINDINGS: The heart size is normal. The pulmonary vasculature is normal. The lungs are clear. Left-sided chest tube is present. No pneumothorax is evident. Endotracheal tube tip is 3.6 cm above t he alison. Nasogastric tube transverses the thorax with tip in the left upper quadrant of the abdomen . Mediastinal tube is present. [place]-Cresencio catheter tip is in the region of the main pulmonary artery. IMPRESSION: 1. Multiple lines and catheters discussed above [facility], , 01/15/2025 4:41 PM
[2025-01-15 16:55] LABS: Glucose,Whole Blood 108 mg/dL (70-110)
[2025-01-15 16:56] LABS: ABG Base Excess -3.5 mmol/L; ABG HCO3 23 mmol/L (21-25); ABG Oxygen Saturation 99.7 % (94-97); ABG PCO2 49 mmHg (35-45); ABG PH 7.28 (7.35-7.45); ABG PO2 391 mmHg (83-108); ABG TCO2 25 mmol/L (19-24); Allen Test Performed? Yes
[2025-01-15 17:00] LABS: INR 1.3 (<1.2); Partial Thromboplastin Time 32.5 sec (22.0-30.0); Prothrombin Time 13.8 sec (10.0-12.5)
[2025-01-15 17:02] LABS: Ionized Calcium 4.6 mg/dL (4.5-5.3)
[2025-01-15 17:03] LABS: WBC 6.8 k/uL (3.8-10.6)
[2025-01-15 17:04] LABS: HGB 6.8 gm/dL (11.4-16.0)
[2025-01-15 17:13] LABS: ALT 13 U/L (4-34); AST 33 U/L (14-36); African American GFR (CKD) 77 (>60 ml/min/1.73 sqM); Albumin 2.4 g/dL (3.5-5.0); Alkaline Phosphatase 40 U/L (38-126); Anion Gap 5 mmol/L; Blood Urea Nitrogen 16 mg/dL (7-17); Calcium 7.2 mg/dL (8.4-10.2); Carbon Dioxide 23 mmol/L (22-30); Chloride 113 mmol/L (98-107); Glucose 91 mg/dL (74-99); Magnesium 2.4 mg/dL (1.6-2.3); Non-African American GFR(CKD) 67 (>60 ml/min/1.73 sqM); Potassium 4.3 mmol/L (3.5-5.1); Sodium 141 mmol/L (137-145); Total Bilirubin 0.5 mg/dL (0.2-1.3)
[2025-01-15 17:40] LABS: Platelet Count 89 k/uL (150-450)
[2025-01-15] MEDS: ACETAMINOPHEN IV (For NPO) 1,000 MG in EMPTY BAG 1 BAG IVPB SCH (17:47)
[2025-01-15] MEDS: METOCLOPRAMIDE 5 MG/ML 2 ML VIAL IVP SCH (17:47)
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
[2025-01-15 18:30] LABS: Glucose,Whole Blood 170 mg/dL (70-110)
[2025-01-15 19:08] LABS: Glucose,Whole Blood 200 mg/dL (70-110)
[2025-01-15 19:23] LABS: Basophils % (A) 0 %; Eosinophils # (A) 0.1 k/uL (0-0.7); Eosinophils % (A) 1 %; HCT 24.9 % (34.0-46.0); Hypochromasia Slight; Lymphocytes # (A) 0.7 k/uL (1.0-4.8); Lymphocytes % (A) 8 %; MCH 29.1 pg (25.0-35.0); MCHC 32.3 g/dL (31.0-37.0); Mean Platelet Volume 8.4; Monocytes # (A) 0.5 k/uL (0-1.0); Monocytes % (A) 6 %; Neutrophils # (A) 7.4 k/uL (1.3-7.7); Neutrophils % (A) 84 %; Platelet Count 107 k/uL (150-450); RBC 2.76 m/uL (3.80-5.40); RDW 13.5 % (11.5-15.5); WBC 8.7 k/uL (3.8-10.6)
[2025-01-15 20:08] LABS: Glucose,Whole Blood 194 mg/dL (70-110)
[2025-01-15 20:36] LABS: ABG Base Excess -4.1 mmol/L; ABG HCO3 23 mmol/L (21-25); ABG Oxygen Saturation 99.3 % (94-97); ABG PCO2 48 mmHg (35-45); ABG PH 7.28 (7.35-7.45); ABG PO2 201 mmHg (83-108); ABG TCO2 24 mmol/L (19-24)
[2025-01-15 20:40] LABS: Allen Test Performed? no
[2025-01-15] MEDS: ALBUMIN HUMAN 5% 250 ML in EMPTY BAG 1 BAG IVPB PRN (21:15)
[2025-01-15] MEDS: IPRATROPIUM-ALBUTEROL 3 ML NEB INHALATION SCH (21:37)
[2025-01-15 22:22] LABS: Glucose,Whole Blood 165 mg/dL (70-110)
[2025-01-16 00:28] LABS: Glucose,Whole Blood 136 mg/dL (70-110)
[2025-01-16] MEDS: HEPARIN SODIUM,PORCINE 5,000 UNIT/ML 1 ML VIAL SQ SCH (00:42)
[2025-01-16 01:20] LABS: Glucose,Whole Blood 126 mg/dL (70-110)
[2025-01-16 02:19] LABS: Glucose,Whole Blood 119 mg/dL (70-110)
[2025-01-16 04:22] LABS: Glucose,Whole Blood 109 mg/dL (70-110)
[2025-01-16 05:16] LABS: Basophils % (A) 0 %; Eosinophils % (A) 0 %; Lymphocytes # (A) 0.4 k/uL (1.0-4.8); Lymphocytes % (A) 8 %; MCH 29.1 pg (25.0-35.0); MCHC 32.7 g/dL (31.0-37.0); Mean Platelet Volume 8.4; Monocytes # (A) 0.4 k/uL (0-1.0); Monocytes % (A) 7 %; Neutrophils # (A) 4.7 k/uL (1.3-7.7); Neutrophils % (A) 83 %; RBC 1.75 m/uL (3.80-5.40); RDW 14.1 % (11.5-15.5); WBC 5.6 k/uL (3.8-10.6)
[2025-01-16 05:18] LABS: Glucose,Whole Blood 125 mg/dL (70-110)
[2025-01-16 05:22] LABS: Ionized Calcium 4.4 mg/dL (4.5-5.3)
[2025-01-16] MEDS: ACETAMINOPHEN TAB 500 MG TAB PO PRN (05:24)
[2025-01-16 05:37] LABS: ALT 10 U/L (4-34); AST 26 U/L (14-36); African American GFR (CKD) 55 (>60 ml/min/1.73 sqM); Albumin 3.1 g/dL (3.5-5.0); Alkaline Phosphatase 31 U/L (38-126); Anion Gap 5 mmol/L; Blood Urea Nitrogen 18 mg/dL (7-17); Calcium 7.2 mg/dL (8.4-10.2); Carbon Dioxide 23 mmol/L (22-30); Chloride 112 mmol/L (98-107); Glucose 91 mg/dL (74-99); Magnesium 2.1 mg/dL (1.6-2.3); Non-African American GFR(CKD) 48 (>60 ml/min/1.73 sqM); Potassium 4.5 mmol/L (3.5-5.1); Sodium 140 mmol/L (137-145); Total Bilirubin 0.2 mg/dL (0.2-1.3); Total Protein 4.5 g/dL (6.3-8.2)
[2025-01-16 05:53] LABS: HGB 5.1 gm/dL (11.4-16.0)
[2025-01-16 05:54] LABS: HCT 15.6 % (34.0-46.0)
[2025-01-16 06:51] LABS: Glucose,Whole Blood 169 mg/dL (70-110)
--- NOTE | 2025-01-16 07:10 | XR ---
EXAMINATION TYPE: XR chest 1V portable DATE OF EXAM: 01/16/2025 5:39 AM COMPARISON: 01/15/2025 CLINICAL INDICATION: Female, 54 years old with history of Post Operative Cardiac Surgery, previous ab normal chest TECHNIQUE: XR chest 1V portable view(s) obtained. FINDINGS: The heart size is enlarged. The pulmonary vasculature is normal. Left perihilar infiltrate is present increasing from comparison. Left-sided chest tube is present. No pneumothorax evident. Mediastinal tube is present. [place]-Cresencio catheter tip is in the right main pulmo nary artery region. IMPRESSION: 1. Increasing left perihilar infiltrate. Correlate for atelectasis, pneumonia, pulmonary edema. 2. Cardiomegaly. 3. Lines and catheters discussed above [facility], , 01/16/2025 7:08 AM
[2025-01-16 07:23] LABS: Platelet Count 95 k/uL (150-450); RBC Fragments Present
--- NOTE | 2025-01-16 07:57 | P.PN ---
Subjective Progress Note Date: 01/16/25 PROGRESS NOTE The patient is a 54-year-old female who presented with chest discomfort and unstable angina, underwent coronary angiography and was found to have severe triple-vessel disease. She underwent CABG yesterday with POLANCO to the LAD SVG to the OM and to the PDA with closure of her left atrial appendage. She is extubated, in sinus mechanism, hemodynamically stable on no pressors. She has a drop in the hemoglobin and is scheduled to undergo transfusion. She is complaining of chest wall tenderness and respirophasic pain. She denies any nausea or vomiting. She had no evidence of atrial fibrillation or ventricular tachyarrhythmia. Medications: Aspirin, Lipitor 40 mg daily, Plavix 75 mg daily, metoprolol tartrate 12.5 mg twice a day, atorvastatin 40 mg daily PHYSICAL EXAMINATION: Blood pressure 92/50 heart rate 75 LUNGS: Few crackles at the bases HEART: Regular rate and rhythm, S1, S2. No S3. Systolic ejection murmur ABDOMEN: Soft, nontender, no organomegaly EXTREMETIES: No edema LAB: Hemoglobin 5.1, platelets count 95, BUN 18, creatinine 1.26 IMPRESSION: 1. Status post CABG with 3 bypasses 2. Anemia postop with no clear source of bleeding 3. History of hyperlipidemia 4. Chronic kidney disease 5. History of hyperlipidemia 6. History of diabetes 7. History of hypertension PLAN: 1. Transfuse as needed 2. Follow blood pressure and adjust dose of beta-jason and if stable restart CORY inhibitor 3. Incentive spirometry 4. Depending on her progress further recommendations will be made Objective - Vital Signs Vital signs: Vital Signs Temp 100.2 F H 01/16/25 07:06 Pulse 76 01/16/25 07:06 Resp 18 01/16/25 07:06 BP 89/46 01/16/25 06:30 Pulse Ox 98 01/16/25 07:06 FiO2 50 01/15/25 20:00 Intake & Output 01/15/25 01/16/25 01/16/25 18:59 06:59 18:59 Intake Total 7042.604 0551.925 669 Output Total 3660 835 50 Balance -9136.510 865.925 619 Weight 91.7 kg Intake: IV 512 919 59 0.9 pressure bag 18 99 9 ACETAMINOPHEN IV (For NPO 100 100 ) 1,000 mg In Empty Bag 1 bag @ 400 mls/hr IVPB Q6HR [facility] Rx#:[id number] Sodium Chloride 0.9% 1, 100 550 50 000 ml @ 30 mls/hr IV . Q24H [facility] Rx#:[id number] ceFAZolin 2 gm In Sodium 50 50 Chloride 0.9% 50 ml @ 100 mls/hr IVPB ONCE ONE Rx# :[id number] co/ci 90 120 Intake, IV Titration 16.490 31.925 Amount Insulin Regular 100 unit 31.925 In Sodium Chloride 0.9% 100 ml @ Per Protocol IV .Q0M [facility] Rx#:[id number] Insulin Regular 100 unit 0.5 In Sodium Chloride 0.9% 100 ml @ Titrate IV .Q0M [facility] Rx#:[id number] propofoL 1,000 mg In 15.990 Empty Bag 1 bag @ Titrate IV .Q0M [facility] Rx#: [id number] Blood Product 585 0 610 Rc As-1 Unit 0 310 [id number] Rc As-1 Unit 310 [id number] Rc Pheresis As-3 Unit 275 [id number] Albumin 750 0.9 pressure bag 750 Other 30 Output: Chest Tube Drainage 310 270 Chest Tube Left Pleural/ 120 160 Mediastinal Chest Tube Mediastinal 190 110 Drainage 150 20 Right Calf 150 20 Urine 2200 565 30 Estimated Blood Loss 1000 Other: Voiding Method Indwelling Catheter Indwelling Catheter ABP, PAP, CO, CI - Last Documented Arterial Blood Pressure 84/42 Pulmonary Artery Pressure 40/18 Cardiac Output 5.2 Cardiac Index 2.9 - Labs CBC & Chem 7: 01/16/25 04:30 01/16/25 04:30 Labs: Abnormal Lab Results - Last 24 Hours (Table) 01/14/25 01/15/25 01/15/25 Range/Units 05:15 09:36 11:33 RBC (3.80-5.40) m/uL Hgb (11.4-16.0) gm/dL Hct (34.0-46.0) % Plt Count (150-450) k/uL Lymphocytes # (1.0-4.8) k/uL PT (10.0-12.5) sec INR (<1.2) APTT (22.0-30.0) sec ABG pH (7.35-7.45) ABG pCO2 (35-45) mmHg ABG pO2 126 H 206 H (83-108) mmHg ABG HCO3 (21-25) mmol/L ABG Total CO2 (19-24) mmol/L ABG O2 Saturation 98.0 H 98.6 H (94-97) % ABG Hematocrit 27 L 22 L (34.0-46.0) % ABG Potassium (3.4-4.5) mmol/L ABG Ionized Calcium (4.5-5.3) mg/dL ABG Glucose 112 H (75-99) mg/dL Hemoglobin 8.8 L 7.2 L (11.4-16.0) gm/dL Chloride (98-107) mmol/L BUN (7-17) mg/dL Creatinine (0.52-1.04) mg/dL POC Glucose (mg/dL) (70-110) mg/dL Calcium (8.4-10.2) mg/dL Ionized Calcium Sunny (4.5-5.3) mg/dL Magnesium (1.6-2.3) mg/dL Alkaline Phosphatase (38-126) U/L Total Protein (6.3-8.2) g/dL Albumin (3.5-5.0) g/dL Arterial Blood Potassium (3.4-4.5) mmol/L Arterial Blood Glucose 112 H (75-99) mg/dL Crossmatch See Detail 01/15/25 01/15/25 01/15/25 Range/Units 11:37 12:32 13:07 RBC (3.80-5.40) m/uL Hgb (11.4-16.0) gm/dL Hct (34.0-46.0) % Plt Count (150-450) k/uL Lymphocytes # (1.0-4.8) k/uL PT (10.0-12.5) sec INR (<1.2) APTT (22.0-30.0) sec ABG pH 7.48 H (7.35-7.45) ABG pCO2 34 L (35-45) mmHg ABG pO2 220 H >420 H 377 H (83-108) mmHg ABG HCO3 26 H (21-25) mmol/L ABG Total CO2 25 H 25 H (19-24) mmol/L ABG O2 Saturation 98.5 H 98.4 H 98.9 H (94-97) % ABG Hematocrit 22 L 17 L* 19 L* (34.0-46.0) % ABG Potassium (3.4-4.5) mmol/L ABG Ionized Calcium 4.1 L 4.2 L (4.5-5.3) mg/dL ABG Glucose 114 H (75-99) mg/dL Hemoglobin 7.2 L 5.6 L* 6.1 L* (11.4-16.0) gm/dL Chloride (98-107) mmol/L BUN (7-17) mg/dL Creatinine (0.52-1.04) mg/dL POC Glucose (mg/dL) (70-110) mg/dL Calcium (8.4-10.2) mg/dL Ionized Calcium Sunny (4.5-5.3) mg/dL Magnesium (1.6-2.3) mg/dL Alkaline Phosphatase (38-126) U/L Total Protein (6.3-8.2) g/dL Albumin (3.5-5.0) g/dL Arterial Blood Potassium (3.4-4.5) mmol/L Arterial Blood Glucose 114 H (75-99) mg/dL Crossmatch 01/15/25 01/15/25 01/15/25 Range/Units 13:07 13:33 14:07 RBC (3.80-5.40) m/uL Hgb (11.4-16.0) gm/dL Hct (34.0-46.0) % Plt Count (150-450) k/uL Lymphocytes # (1.0-4.8) k/uL PT (10.0-12.5) sec INR (<1.2) APTT (22.0-30.0) sec ABG pH 7.33 L (7.35-7.45) ABG pCO2 46 H 46 H (35-45) mmHg ABG pO2 350 H 387 H 346 H (83-108) mmHg ABG HCO3 26 H (21-25) mmol/L ABG Total CO2 25 H 25 H (19-24) mmol/L ABG O2 Saturation 98.6 H 98.9 H 98.7 H (94-97) % ABG Hematocrit 19 L* 18 L* 16 L* (34.0-46.0) % ABG Potassium 4.7 H (3.4-4.5) mmol/L ABG Ionized Calcium 4.2 L 4.2 L 4.2 L (4.5-5.3) mg/dL ABG Glucose 111 H 125 H 120 H (75-99) mg/dL Hemoglobin 6.2 L* 6.0 L* 5.4 L* (11.4-16.0) gm/dL Chloride (98-107) mmol/L BUN (7-17) mg/dL Creatinine (0.52-1.04) mg/dL POC Glucose (mg/dL) (70-110) mg/dL Calcium (8.4-10.2) mg/dL Ionized Calcium Sunny (4.5-5.3) mg/dL Magnesium (1.6-2.3) mg/dL Alkaline Phosphatase (38-126) U/L Total Protein (6.3-8.2) g/dL Albumin (3.5-5.0) g/dL Arterial Blood Potassium 4.7 H (3.4-4.5) mmol/L Arterial Blood Glucose 111 H 125 H 120 H (75-99) mg/dL Crossmatch 01/15/25 01/15/25 01/15/25 Range/Units 16:31 16:31 16:31 RBC 2.33 L (3.80-5.40) m/uL Hgb 6.8 L* D (11.4-16.0) gm/dL Hct 20.7 L (34.0-46.0) % Plt Count 89 L D (150-450) k/uL Lymphocytes # 0.7 L (1.0-4.8) k/uL PT 13.8 H (10.0-12.5) sec INR 1.3 H (<1.2) APTT 32.5 H (22.0-30.0) sec ABG pH (7.35-7.45) ABG pCO2 (35-45) mmHg ABG pO2 (83-108) mmHg ABG HCO3 (21-25) mmol/L ABG Total CO2 (19-24) mmol/L ABG O2 Saturation (94-97) % ABG Hematocrit (34.0-46.0) % ABG Potassium (3.4-4.5) mmol/L ABG Ionized Calcium (4.5-5.3) mg/dL ABG Glucose (75-99) mg/dL Hemoglobin (11.4-16.0) gm/dL Chloride 113 H (98-107) mmol/L BUN (7-17) mg/dL Creatinine (0.52-1.04) mg/dL POC Glucose (mg/dL) (70-110) mg/dL Calcium 7.2 L (8.4-10.2) mg/dL Ionized Calcium Sunny (4.5-5.3) mg/dL Magnesium 2.4 H (1.6-2.3) mg/dL Alkaline Phosphatase (38-126) U/L Total Protein 4.0 L (6.3-8.2) g/dL Albumin 2.4 L (3.5-5.0) g/dL Arterial Blood Potassium (3.4-4.5) mmol/L Arterial Blood Glucose (75-99) mg/dL Crossmatch 01/15/25 01/15/25 01/15/25 Range/Units 16:50 18:28 18:49 RBC 2.76 L (3.80-5.40) m/uL Hgb 8.0 L (11.4-16.0) gm/dL Hct 24.9 L (34.0-46.0) % Plt Count 107 L (150-450) k/uL Lymphocytes # 0.7 L (1.0-4.8) k/uL PT (10.0-12.5) sec INR (<1.2) APTT (22.0-30.0) sec ABG pH 7.28 L (7.35-7.45) ABG pCO2 49 H (35-45) mmHg ABG pO2 391 H (83-108) mmHg ABG HCO3 (21-25) mmol/L ABG Total CO2 25 H (19-24) mmol/L ABG O2 Saturation 99.7 H (94-97) % ABG Hematocrit (34.0-46.0) % ABG Potassium (3.4-4.5) mmol/L ABG Ionized Calcium (4.5-5.3) mg/dL ABG Glucose (75-99) mg/dL Hemoglobin 6.5 L* (11.4-16.0) gm/dL Chloride (98-107) mmol/L BUN (7-17) mg/dL Creatinine (0.52-1.04) mg/dL POC Glucose (mg/dL) 170 H (70-110) mg/dL Calcium (8.4-10.2) mg/dL Ionized Calcium Sunny (4.5-5.3) mg/dL Magnesium (1.6-2.3) mg/dL Alkaline Phosphatase (38-126) U/L Total Protein (6.3-8.2) g/dL Albumin (3.5-5.0) g/dL Arterial Blood Potassium (3.4-4.5) mmol/L Arterial Blood Glucose (75-99) mg/dL Crossmatch 01/15/25 01/15/25 01/15/25 Range/Units 19:07 20:07 20:26 RBC (3.80-5.40) m/uL Hgb (11.4-16.0) gm/dL Hct (34.0-46.0) % Plt Count (150-450) k/uL Lymphocytes # (1.0-4.8) k/uL PT (10.0-12.5) sec INR (<1.2) APTT (22.0-30.0) sec ABG pH 7.28 L (7.35-7.45) ABG pCO2 48 H (35-45) mmHg ABG pO2 201 H (83-108) mmHg ABG HCO3 (21-25) mmol/L ABG Total CO2 (19-24) mmol/L ABG O2 Saturation 99.3 H (94-97) % ABG Hematocrit (34.0-46.0) % ABG Potassium (3.4-4.5) mmol/L ABG Ionized Calcium (4.5-5.3) mg/dL ABG Glucose (75-99) mg/dL Hemoglobin 7.8 L (11.4-16.0) gm/dL Chloride (98-107) mmol/L BUN (7-17) mg/dL Creatinine (0.52-1.04) mg/dL POC Glucose (mg/dL) 200 H 194 H (70-110) mg/dL Calcium (8.4-10.2) mg/dL Ionized Calcium Sunny (4.5-5.3) mg/dL Magnesium (1.6-2.3) mg/dL Alkaline Phosphatase (38-126) U/L Total Protein (6.3-8.2) g/dL Albumin (3.5-5.0) g/dL Arterial Blood Potassium (3.4-4.5) mmol/L Arterial Blood Glucose (75-99) mg/dL Crossmatch 01/15/25 01/16/25 01/16/25 Range/Units 22:15 00:21 01:18 RBC (3.80-5.40) m/uL Hgb (11.4-16.0) gm/dL Hct (34.0-46.0) % Plt Count (150-450) k/uL Lymphocytes # (1.0-4.8) k/uL PT (10.0-12.5) sec INR (<1.2) APTT (22.0-30.0) sec ABG pH (7.35-7.45) ABG pCO2 (35-45) mmHg ABG pO2 (83-108) mmHg ABG HCO3 (21-25) mmol/L ABG Total CO2 (19-24) mmol/L ABG O2 Saturation (94-97) % ABG Hematocrit (34.0-46.0) % ABG Potassium (3.4-4.5) mmol/L ABG Ionized Calcium (4.5-5.3) mg/dL ABG Glucose (75-99) mg/dL Hemoglobin (11.4-16.0) gm/dL Chloride (98-107) mmol/L BUN (7-17) mg/dL Creatinine (0.52-1.04) mg/dL POC Glucose (mg/dL) 165 H 136 H 126 H (70-110) mg/dL Calcium (8.4-10.2) mg/dL Ionized Calcium Sunny (4.5-5.3) mg/dL Magnesium (1.6-2.3) mg/dL Alkaline Phosphatase (38-126) U/L Total Protein (6.3-8.2) g/dL Albumin (3.5-5.0) g/dL Arterial Blood Potassium (3.4-4.5) mmol/L Arterial Blood Glucose (75-99) mg/dL Crossmatch 02/01/16/25 01/16/25 Range/Units 02:18 04:30 04:30 RBC 1.75 L (3.80-5.40) m/uL Hgb 5.1 L* D (11.4-16.0) gm/dL Hct 15.6 L* (34.0-46.0) % Plt Count 95 L (150-450) k/uL Lymphocytes # 0.4 L (1.0-4.8) k/uL PT (10.0-12.5) sec INR (<1.2) APTT (22.0-30.0) sec ABG pH (7.35-7.45) ABG pCO2 (35-45) mmHg ABG pO2 (83-108) mmHg ABG HCO3 (21-25) mmol/L ABG Total CO2 (19-24) mmol/L ABG O2 Saturation (94-97) % ABG Hematocrit (34.0-46.0) % ABG Potassium (3.4-4.5) mmol/L ABG Ionized Calcium (4.5-5.3) mg/dL ABG Glucose (75-99) mg/dL Hemoglobin (11.4-16.0) gm/dL Chloride 112 H (98-107) mmol/L BUN 18 H (7-17) mg/dL Creatinine 1.26 H (0.52-1.04) mg/dL POC Glucose (mg/dL) 119 H (70-110) mg/dL Calcium 7.2 L (8.4-10.2) mg/dL Ionized Calcium Sunny 4.4 L (4.5-5.3) mg/dL Magnesium (1.6-2.3) mg/dL Alkaline Phosphatase 31 L (38-126) U/L Total Protein 4.5 L (6.3-8.2) g/dL Albumin 3.1 L (3.5-5.0) g/dL Arterial Blood Potassium (3.4-4.5) mmol/L Arterial Blood Glucose (75-99) mg/dL Crossmatch 01/16/25 01/16/25 Range/Units 05:16 06:49 RBC (3.80-5.40) m/uL Hgb (11.4-16.0) gm/dL Hct (34.0-46.0) % Plt Count (150-450) k/uL Lymphocytes # (1.0-4.8) k/uL PT (10.0-12.5) sec INR (<1.2) APTT (22.0-30.0) sec ABG pH (7.35-7.45) ABG pCO2 (35-45) mmHg ABG pO2 (83-108) mmHg ABG HCO3 (21-25) mmol/L ABG Total CO2 (19-24) mmol/L ABG O2 Saturation (94-97) % ABG Hematocrit (34.0-46.0) % ABG Potassium (3.4-4.5) mmol/L ABG Ionized Calcium (4.5-5.3) mg/dL ABG Glucose (75-99) mg/dL Hemoglobin (11.4-16.0) gm/dL Chloride (98-107) mmol/L BUN (7-17) mg/dL Creatinine (0.52-1.04) mg/dL POC Glucose (mg/dL) 125 H 169 H (70-110) mg/dL Calcium (8.4-10.2) mg/dL Ionized Calcium Sunny (4.5-5.3) mg/dL Magnesium (1.6-2.3) mg/dL Alkaline Phosphatase (38-126) U/L Total Protein (6.3-8.2) g/dL Albumin (3.5-5.0) g/dL Arterial Blood Potassium (3.4-4.5) mmol/L Arterial Blood Glucose (75-99) mg/dL Crossmatch
[2025-01-16 08:04] LABS: Glucose,Whole Blood 149 mg/dL (70-110)
[2025-01-16] MEDS: LEVOTHYROXINE 88 MCG TAB PO SCH (08:05)
[2025-01-16] MEDS: CALCIUM CHLORIDE 100 MG/ML 10 ML SYRINGE IVP STA (08:06)
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
[2025-01-16] MEDS: PANTOPRAZOLE 40 MG/10 ML VIAL IVP SCH (08:39)
[2025-01-16] MEDS: CLOPIDOGREL 75 MG TAB PO SCH (08:40)
[2025-01-16] MEDS: ASPIRIN 325 MG TAB PO SCH (08:40)
[2025-01-16] MEDS: ATORVASTATIN 40 MG TAB PO SCH (08:40)
[2025-01-16] MEDS ORDERED: METOPROLOL TARTRATE 12.5 MG TAB PO SCH (09:00)
[2025-01-16 09:08] LABS: Glucose,Whole Blood 135 mg/dL (70-110)
[2025-01-16] MEDS: IPRATROPIUM-ALBUTEROL 3 ML NEB INHALATION SCH (09:32)
[2025-01-16] MEDS: ONDANSETRON 4 MG/2 ML VIAL IVP PRN (10:24)
[2025-01-16 12:04] LABS: Glucose,Whole Blood 142 mg/dL (70-110)
[2025-01-16] MEDS: CALCIUM CHLORIDE 100 MG/ML 10 ML SYRINGE IVP ONE (12:30)
[2025-01-16 12:51] LABS: HCT 24.1 % (34.0-46.0); MCH 30.2 pg (25.0-35.0); MCHC 33.6 g/dL (31.0-37.0); MCV 89.9 fL (80.0-100.0); Mean Platelet Volume 8.6; Platelet Count 101 k/uL (150-450); RBC 2.68 m/uL (3.80-5.40); RDW 14.2 % (11.5-15.5); WBC 8.9 k/uL (3.8-10.6)
[2025-01-16 13:02] LABS: HGB 8.1 gm/dL (11.4-16.0)
[2025-01-16 13:04] LABS: Glucose,Whole Blood 133 mg/dL (70-110)
[2025-01-16 14:57] LABS: Glucose,Whole Blood 238 mg/dL (70-110)
--- NOTE | 2025-01-16 15:16 | P.PN ---
Subjective Progress Note Date: 01/16/25 Hospital Course: Patient is a 54-year-old female with past medical history of hypothyroidism, hypertension, hyperlipidemia, insulin-dependent diabetes, CKD, and JEREMY who presented to the ED with chief complaint of chest pain which started Monday. She described it as centralized radiating to the left arm and onset was while she was at rest. She states the pain subsided and then came back yesterday around noon. Patient states she took a few nitro, but the pain did not subside. She also endorses some shortness of breath and orthopnea, requiring 2 pillows to be propped at night. She states she has had an DC in October but cannot undergo cardiac cath due to poor renal function. She states her father had a history of strokes and CAD with stent placements. Patient denies any prior stenting or being on blood thinners. Patient currently endorsing some chest discomfort, shortness of breath and nausea. She denies any fevers, chills, vomiting, diarrhea, lower extremity edema. Vitals on admission temperature 98 F, heart rate 90 bpm, respiratory rate 18, blood pressure 159/85, O2 saturation 98% on room air. EKG independently interpreted as sinus rhythm, ventricular rate 86 bpm QTc of 415 ms, T wave inversions in lateral leads. CXR shows no acute cardiopulmonary process. CT chest shows no acute process or significant atherosclerotic disease of aorta. Labs on admission show WBCs 8, hemoglobin 11.4, platelets 222. PT 10.9, INR 1, PTT 24.3. Sodium 137, potassium 4.7, chloride 112, bicarb 23, BUN 28, creatinine 1.21, glucose 157. Calcium 9, magnesium 1.8. Troponins x 3 negative. NT proBNP 2340. Lipase 114. 01/16/25 Patient seen and examined at bedside in intensive care unit resting comfortably. Tolerating minimal clear liquids. Denies flatus. Patient appears sleepy but arousable. Pertinent positives and negatives discussed above, a complete review of systems was preformed and all the other systems were negative. Vitals Signs Reviewed. Constitutional: Appears comfortable, cooperative, no acute distress Respiratory: Lungs sounds diminished bilaterally. Respirations even, nonlabored. Currently on 2 L nasal cannula with oxygen saturation 98%. Able to achieve 500 mL on incentive spirometry. Strong nonproductive cough. Cardiovascular: S1, S2 present. Regular rate and rhythm, sinus rhythm on telemetry. Sternum stable. Palpable peripheral pulses bilaterally. No edema present. No calf pain or tenderness noted. Heart hugger, antiembolism stockings, SCDs present. Gastrointestinal: Abdomen soft, nontender, nondistended. Hypoactive bowel sounds present 4 quadrants. Genitourinary: Sellers present draining clear, yellow urine. Output overnight 40-70 mL per hour Integumentary: Skin is warm and dry with evidence of good perfusion. Anterior chest incision well approximated and covered with dry intact dressing. Left radial artery as well as right lower extremity EVH site well approximated without redness, SAM drains present with minimal drainage Neurologic: Cranial nerves II through XII intact Musculoskeletal: Able to move all extremities, strength equal bilaterally Psychiatric: Drowsy but oriented to person place and time Invasive lines: Right internal jugular Eudora/Cordis, right radial arterial line, mediastinal/left pleural chest tubes, left radial artery as well as right lower extremity EVH SAM drains present. Data Reviewed Today: Patient Labs: WBCs 5.6, hemoglobin 5.1, platelets 95. Sodium 140, potassium 4.5, chloride 112, bicarb 23, BUN 18, creatinine 1.26, glucose 91. 0.2. Magnesium 2.1. Imaging: No new imaging Assessment and Plan: Patient is a 54-year-old female with past medical history of hypothyroidism, hypertension, hyperlipidemia, insulin-dependent diabetes, CKD, and JEREMY who presented to the ED with chief complaint of chest pain. Chronic kidney disease stage IIIa, stable Continue to monitor renal function Continue IV fluids Hyperglycemia in insulin-dependent diabetic Accu-Cheks per ACHS protocol Moderate insulin sliding scale Continue Levemir 5 mg SQ twice daily Hypoglycemia precautions Will adjust insulin accordingly Unstable angina Cardiac cath showed severe triple-vessel disease status post CABG POD #1 EKG independently interpreted as sinus rhythm, ventricular rate 86 bpm QTc of 415 ms, T wave inversions in lateral leads Troponin x 3 negative Echocardiogram showed EF between 45 to 50% playground monitor Postop management per CT surgery and ICU team Acute blood loss anemia, secondary to above Patient has been transfused 2 units this morning for a total of 4 Continue to monitor CBC Transfuse an additional unit if hemoglobin less than 7 Chronic: Hypertension Continue lisinopril 10 mg daily Continue metoprolol 25 mg twice daily Hypothyroidism Continue Synthroid 175 mcg daily Hyperlipidemia Continue Lipitor 40 mg daily Anxiety Continue Lexapro 10 mg daily Xanax as needed Insomnia Continue hydroxyzine 25 mg p.o. at bedtime as needed F: Deferred to CT surgery and ICU E: Replete as needed N: Clear liquids A: As tolerated DVT prophylaxis: Per primary team The patient is admitted with an anticipated more than 2 midnight stay for CABG CODE STATUS: Full code Discussed with: Patient Anticipated discharge place: Pending clinical course Attestation I have seen and examined this patient with my resident , discussed the same with the resident/JOSÉ MIGUEL, and agree with the dictator's assessment and plan as written GENERAL: The patient is alert HEENT: Pupils are round and equally reacting to light. EOMI. No scleral icterus. No conjunctival pallor. Normocephalic, atraumatic. No pharyngeal erythema. No thyromegaly. CARDIOVASCULAR: S1 and S2 present. No murmurs, rubs, or gallops. PULMONARY: Diminished breath sound the bases, sternotomy surgical incision s seen ABDOMEN: Soft, nontender, nondistended, normoactive bowel sounds. No palpable organomegaly. MUSCULOSKELETAL: No joint swelling or deformity. EXTREMITIES: No cyanosis, clubbing, or pedal edema. NEUROLOGICAL: Gross neurological examination did not reveal any focal deficits. SKIN: No rashes. Dr. Roshan paredes Objective - Vital Signs Vital signs: Vital Signs Temp 100.2 F H 01/16/25 07:06 Pulse 76 01/16/25 07:06 Resp 18 01/16/25 07:06 BP 89/46 01/16/25 06:30 Pulse Ox 98 01/16/25 07:06 FiO2 50 01/15/25 20:00 Intake & Output 01/15/25 01/16/25 01/16/25 18:59 06:59 18:59 Intake Total 1858.310 0718.925 669 Output Total 3660 835 50 Balance -2516.510 865.925 619 Weight 91.7 kg Intake: IV 512 919 59 0.9 pressure bag 18 99 9 ACETAMINOPHEN IV (For NPO 100 100 ) 1,000 mg In Empty Bag 1 bag @ 400 mls/hr IVPB Q6HR [facility] Rx#:[id number] Sodium Chloride 0.9% 1, 100 550 50 000 ml @ 30 mls/hr IV . Q24H [facility] Rx#:[id number] ceFAZolin 2 gm In Sodium 50 50 Chloride 0.9% 50 ml @ 100 mls/hr IVPB ONCE ONE Rx# :[id number] co/ci 90 120 Intake, IV Titration 16.490 31.925 Amount Insulin Regular 100 unit 31.925 In Sodium Chloride 0.9% 100 ml @ Per Protocol IV .Q0M [facility] Rx#:[id number] Insulin Regular 100 unit 0.5 In Sodium Chloride 0.9% 100 ml @ Titrate IV .Q0M [facility] Rx#:[id number] propofoL 1,000 mg In 15.990 Empty Bag 1 bag @ Titrate IV .Q0M [facility] Rx#: [id number] Blood Product 585 0 610 Rc As-1 Unit 0 310 [id number] Rc As-1 Unit 310 [id number] Rc Pheresis As-3 Unit 275 [id number] Albumin 750 0.9 pressure bag 750 Other 30 Output: Chest Tube Drainage 310 270 Chest Tube Left Pleural/ 120 160 Mediastinal Chest Tube Mediastinal 190 110 Drainage 150 20 Right Calf 150 20 Urine 2200 565 30 Estimated Blood Loss 1000 Other: Voiding Method Indwelling Catheter Indwelling Catheter ABP, PAP, CO, CI - Last Documented Arterial Blood Pressure 84/42 Pulmonary Artery Pressure 40/18 Cardiac Output 5.2 Cardiac Index 2.9 - Labs CBC & Chem 7: 01/17/25 04:15 01/17/25 04:15 Labs: Abnormal Lab Results - Last 24 Hours (Table) 01/14/25 01/15/25 01/15/25 Range/Units 05:15 09:36 11:33 RBC (3.80-5.40) m/uL Hgb (11.4-16.0) gm/dL Hct (34.0-46.0) % Plt Count (150-450) k/uL Lymphocytes # (1.0-4.8) k/uL PT (10.0-12.5) sec INR (<1.2) APTT (22.0-30.0) sec ABG pH (7.35-7.45) ABG pCO2 (35-45) mmHg ABG pO2 126 H 206 H (83-108) mmHg ABG HCO3 (21-25) mmol/L ABG Total CO2 (19-24) mmol/L ABG O2 Saturation 98.0 H 98.6 H (94-97) % ABG Hematocrit 27 L 22 L (34.0-46.0) % ABG Potassium (3.4-4.5) mmol/L ABG Ionized Calcium (4.5-5.3) mg/dL ABG Glucose 112 H (75-99) mg/dL Hemoglobin 8.8 L 7.2 L (11.4-16.0) gm/dL Chloride (98-107) mmol/L BUN (7-17) mg/dL Creatinine (0.52-1.04) mg/dL POC Glucose (mg/dL) (70-110) mg/dL Calcium (8.4-10.2) mg/dL Ionized Calcium Sunny (4.5-5.3) mg/dL Magnesium (1.6-2.3) mg/dL Alkaline Phosphatase (38-126) U/L Total Protein (6.3-8.2) g/dL Albumin (3.5-5.0) g/dL Arterial Blood Potassium (3.4-4.5) mmol/L Arterial Blood Glucose 112 H (75-99) mg/dL Crossmatch See Detail 01/15/25 01/15/25 01/15/25 Range/Units 11:37 12:32 13:07 RBC (3.80-5.40) m/uL Hgb (11.4-16.0) gm/dL Hct (34.0-46.0) % Plt Count (150-450) k/uL Lymphocytes # (1.0-4.8) k/uL PT (10.0-12.5) sec INR (<1.2) APTT (22.0-30.0) sec ABG pH 7.48 H (7.35-7.45) ABG pCO2 34 L (35-45) mmHg ABG pO2 220 H >420 H 377 H (83-108) mmHg ABG HCO3 26 H (21-25) mmol/L ABG Total CO2 25 H 25 H (19-24) mmol/L ABG O2 Saturation 98.5 H 98.4 H 98.9 H (94-97) % ABG Hematocrit 22 L 17 L* 19 L* (34.0-46.0) % ABG Potassium (3.4-4.5) mmol/L ABG Ionized Calcium 4.1 L 4.2 L (4.5-5.3) mg/dL ABG Glucose 114 H (75-99) mg/dL Hemoglobin 7.2 L 5.6 L* 6.1 L* (11.4-16.0) gm/dL Chloride (98-107) mmol/L BUN (7-17) mg/dL Creatinine (0.52-1.04) mg/dL POC Glucose (mg/dL) (70-110) mg/dL Calcium (8.4-10.2) mg/dL Ionized Calcium Sunny (4.5-5.3) mg/dL Magnesium (1.6-2.3) mg/dL Alkaline Phosphatase (38-126) U/L Total Protein (6.3-8.2) g/dL Albumin (3.5-5.0) g/dL Arterial Blood Potassium (3.4-4.5) mmol/L Arterial Blood Glucose 114 H (75-99) mg/dL Crossmatch 01/15/25 01/15/25 01/15/25 Range/Units 13:07 13:33 14:07 RBC (3.80-5.40) m/uL Hgb (11.4-16.0) gm/dL Hct (34.0-46.0) % Plt Count (150-450) k/uL Lymphocytes # (1.0-4.8) k/uL PT (10.0-12.5) sec INR (<1.2) APTT (22.0-30.0) sec ABG pH 7.33 L (7.35-7.45) ABG pCO2 46 H 46 H (35-45) mmHg ABG pO2 350 H 387 H 346 H (83-108) mmHg ABG HCO3 26 H (21-25) mmol/L ABG Total CO2 25 H 25 H (19-24) mmol/L ABG O2 Saturation 98.6 H 98.9 H 98.7 H (94-97) % ABG Hematocrit 19 L* 18 L* 16 L* (34.0-46.0) % ABG Potassium 4.7 H (3.4-4.5) mmol/L ABG Ionized Calcium 4.2 L 4.2 L 4.2 L (4.5-5.3) mg/dL ABG Glucose 111 H 125 H 120 H (75-99) mg/dL Hemoglobin 6.2 L* 6.0 L* 5.4 L* (11.4-16.0) gm/dL Chloride (98-107) mmol/L BUN (7-17) mg/dL Creatinine (0.52-1.04) mg/dL POC Glucose (mg/dL) (70-110) mg/dL Calcium (8.4-10.2) mg/dL Ionized Calcium Sunny (4.5-5.3) mg/dL Magnesium (1.6-2.3) mg/dL Alkaline Phosphatase (38-126) U/L Total Protein (6.3-8.2) g/dL Albumin (3.5-5.0) g/dL Arterial Blood Potassium 4.7 H (3.4-4.5) mmol/L Arterial Blood Glucose 111 H 125 H 120 H (75-99) mg/dL Crossmatch 01/15/25 01/15/25 01/15/25 Range/Units 16:31 16:31 16:31 RBC 2.33 L (3.80-5.40) m/uL Hgb 6.8 L* D (11.4-16.0) gm/dL Hct 20.7 L (34.0-46.0) % Plt Count 89 L D (150-450) k/uL Lymphocytes # 0.7 L (1.0-4.8) k/uL PT 13.8 H (10.0-12.5) sec INR 1.3 H (<1.2) APTT 32.5 H (22.0-30.0) sec ABG pH (7.35-7.45) ABG pCO2 (35-45) mmHg ABG pO2 (83-108) mmHg ABG HCO3 (21-25) mmol/L ABG Total CO2 (19-24) mmol/L ABG O2 Saturation (94-97) % ABG Hematocrit (34.0-46.0) % ABG Potassium (3.4-4.5) mmol/L ABG Ionized Calcium (4.5-5.3) mg/dL ABG Glucose (75-99) mg/dL Hemoglobin (11.4-16.0) gm/dL Chloride 113 H (98-107) mmol/L BUN (7-17) mg/dL Creatinine (0.52-1.04) mg/dL POC Glucose (mg/dL) (70-110) mg/dL Calcium 7.2 L (8.4-10.2) mg/dL Ionized Calcium Sunny (4.5-5.3) mg/dL Magnesium 2.4 H (1.6-2.3) mg/dL Alkaline Phosphatase (38-126) U/L Total Protein 4.0 L (6.3-8.2) g/dL Albumin 2.4 L (3.5-5.0) g/dL Arterial Blood Potassium (3.4-4.5) mmol/L Arterial Blood Glucose (75-99) mg/dL Crossmatch 01/15/25 01/15/25 01/15/25 Range/Units 16:50 18:28 18:49 RBC 2.76 L (3.80-5.40) m/uL Hgb 8.0 L (11.4-16.0) gm/dL Hct 24.9 L (34.0-46.0) % Plt Count 107 L (150-450) k/uL Lymphocytes # 0.7 L (1.0-4.8) k/uL PT (10.0-12.5) sec INR (<1.2) APTT (22.0-30.0) sec ABG pH 7.28 L (7.35-7.45) ABG pCO2 49 H (35-45) mmHg ABG pO2 391 H (83-108) mmHg ABG HCO3 (21-25) mmol/L ABG Total CO2 25 H (19-24) mmol/L ABG O2 Saturation 99.7 H (94-97) % ABG Hematocrit (34.0-46.0) % ABG Potassium (3.4-4.5) mmol/L ABG Ionized Calcium (4.5-5.3) mg/dL ABG Glucose (75-99) mg/dL Hemoglobin 6.5 L* (11.4-16.0) gm/dL Chloride (98-107) mmol/L BUN (7-17) mg/dL Creatinine (0.52-1.04) mg/dL POC Glucose (mg/dL) 170 H (70-110) mg/dL Calcium (8.4-10.2) mg/dL Ionized Calcium Sunny (4.5-5.3) mg/dL Magnesium (1.6-2.3) mg/dL Alkaline Phosphatase (38-126) U/L Total Protein (6.3-8.2) g/dL Albumin (3.5-5.0) g/dL Arterial Blood Potassium (3.4-4.5) mmol/L Arterial Blood Glucose (75-99) mg/dL Crossmatch 01/15/25 01/15/25 01/15/25 Range/Units 19:07 20:07 20:26 RBC (3.80-5.40) m/uL Hgb (11.4-16.0) gm/dL Hct (34.0-46.0) % Plt Count (150-450) k/uL Lymphocytes # (1.0-4.8) k/uL PT (10.0-12.5) sec INR (<1.2) APTT (22.0-30.0) sec ABG pH 7.28 L (7.35-7.45) ABG pCO2 48 H (35-45) mmHg ABG pO2 201 H (83-108) mmHg ABG HCO3 (21-25) mmol/L ABG Total CO2 (19-24) mmol/L ABG O2 Saturation 99.3 H (94-97) % ABG Hematocrit (34.0-46.0) % ABG Potassium (3.4-4.5) mmol/L ABG Ionized Calcium (4.5-5.3) mg/dL ABG Glucose (75-99) mg/dL Hemoglobin 7.8 L (11.4-16.0) gm/dL Chloride (98-107) mmol/L BUN (7-17) mg/dL Creatinine (0.52-1.04) mg/dL POC Glucose (mg/dL) 200 H 194 H (70-110) mg/dL Calcium (8.4-10.2) mg/dL Ionized Calcium Sunny (4.5-5.3) mg/dL Magnesium (1.6-2.3) mg/dL Alkaline Phosphatase (38-126) U/L Total Protein (6.3-8.2) g/dL Albumin (3.5-5.0) g/dL Arterial Blood Potassium (3.4-4.5) mmol/L Arterial Blood Glucose (75-99) mg/dL Crossmatch 01/15/25 01/16/25 01/16/25 Range/Units 22:15 00:21 01:18 RBC (3.80-5.40) m/uL Hgb (11.4-16.0) gm/dL Hct (34.0-46.0) % Plt Count (150-450) k/uL Lymphocytes # (1.0-4.8) k/uL PT (10.0-12.5) sec INR (<1.2) APTT (22.0-30.0) sec ABG pH (7.35-7.45) ABG pCO2 (35-45) mmHg ABG pO2 (83-108) mmHg ABG HCO3 (21-25) mmol/L ABG Total CO2 (19-24) mmol/L ABG O2 Saturation (94-97) % ABG Hematocrit (34.0-46.0) % ABG Potassium (3.4-4.5) mmol/L ABG Ionized Calcium (4.5-5.3) mg/dL ABG Glucose (75-99) mg/dL Hemoglobin (11.4-16.0) gm/dL Chloride (98-107) mmol/L BUN (7-17) mg/dL Creatinine (0.52-1.04) mg/dL POC Glucose (mg/dL) 165 H 136 H 126 H (70-110) mg/dL Calcium (8.4-10.2) mg/dL Ionized Calcium Sunny (4.5-5.3) mg/dL Magnesium (1.6-2.3) mg/dL Alkaline Phosphatase (38-126) U/L Total Protein (6.3-8.2) g/dL Albumin (3.5-5.0) g/dL Arterial Blood Potassium (3.4-4.5) mmol/L Arterial Blood Glucose (75-99) mg/dL Crossmatch 01/16/25 01/16/25 01/16/25 Range/Units 02:18 04:30 04:30 RBC 1.75 L (3.80-5.40) m/uL Hgb 5.1 L* D (11.4-16.0) gm/dL Hct 15.6 L* (34.0-46.0) % Plt Count 95 L (150-450) k/uL Lymphocytes # 0.4 L (1.0-4.8) k/uL PT (10.0-12.5) sec INR (<1.2) APTT (22.0-30.0) sec ABG pH (7.35-7.45) ABG pCO2 (35-45) mmHg ABG pO2 (83-108) mmHg ABG HCO3 (21-25) mmol/L ABG Total CO2 (19-24) mmol/L ABG O2 Saturation (94-97) % ABG Hematocrit (34.0-46.0) % ABG Potassium (3.4-4.5) mmol/L ABG Ionized Calcium (4.5-5.3) mg/dL ABG Glucose (75-99) mg/dL Hemoglobin (11.4-16.0) gm/dL Chloride 112 H (98-107) mmol/L BUN 18 H (7-17) mg/dL Creatinine 1.26 H (0.52-1.04) mg/dL POC Glucose (mg/dL) 119 H (70-110) mg/dL Calcium 7.2 L (8.4-10.2) mg/dL Ionized Calcium Sunny 4.4 L (4.5-5.3) mg/dL Magnesium (1.6-2.3) mg/dL Alkaline Phosphatase 31 L (38-126) U/L Total Protein 4.5 L (6.3-8.2) g/dL Albumin 3.1 L (3.5-5.0) g/dL Arterial Blood Potassium (3.4-4.5) mmol/L Arterial Blood Glucose (75-99) mg/dL Crossmatch 01/16/25 01/16/25 Range/Units 05:16 06:49 RBC (3.80-5.40) m/uL Hgb (11.4-16.0) gm/dL Hct (34.0-46.0) % Plt Count (150-450) k/uL Lymphocytes # (1.0-4.8) k/uL PT (10.0-12.5) sec INR (<1.2) APTT (22.0-30.0) sec ABG pH (7.35-7.45) ABG pCO2 (35-45) mmHg ABG pO2 (83-108) mmHg ABG HCO3 (21-25) mmol/L ABG Total CO2 (19-24) mmol/L ABG O2 Saturation (94-97) % ABG Hematocrit (34.0-46.0) % ABG Potassium (3.4-4.5) mmol/L ABG Ionized Calcium (4.5-5.3) mg/dL ABG Glucose (75-99) mg/dL Hemoglobin (11.4-16.0) gm/dL Chloride (98-107) mmol/L BUN (7-17) mg/dL Creatinine (0.52-1.04) mg/dL POC Glucose (mg/dL) 125 H 169 H (70-110) mg/dL Calcium (8.4-10.2) mg/dL Ionized Calcium Sunny (4.5-5.3) mg/dL Magnesium (1.6-2.3) mg/dL Alkaline Phosphatase (38-126) U/L Total Protein (6.3-8.2) g/dL Albumin (3.5-5.0) g/dL Arterial Blood Potassium (3.4-4.5) mmol/L Arterial Blood Glucose (75-99) mg/dL Crossmatch
[2025-01-16 16:26] LABS: Glucose,Whole Blood 212 mg/dL (70-110)
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
[2025-01-16] MEDS: MAGNESIUM HYDROXIDE 2,400 MG/30 ML CUP PO PRN (17:23)
[2025-01-16] MEDS: fentaNYL (PF) 50 MCG/ML 2 ML AMP IVP PRN (17:46)
[2025-01-16 17:56] LABS: Glucose,Whole Blood 247 mg/dL (70-110)
[2025-01-16 21:08] LABS: Glucose,Whole Blood 203 mg/dL (70-110)
[2025-01-16] MEDS: METOPROLOL TARTRATE 12.5 MG TAB PO SCH (21:13)
[2025-01-16] MEDS: SENNOSIDES-DOCUSATE SODIUM 1 EACH TAB PO SCH (21:13)
[2025-01-16 22:10] LABS: Glucose,Whole Blood 169 mg/dL (70-110)
[2025-01-17 01:06] LABS: Glucose,Whole Blood 181 mg/dL (70-110)
[2025-01-17 02:17] LABS: Glucose,Whole Blood 196 mg/dL (70-110)
[2025-01-17 04:13] LABS: Glucose,Whole Blood 189 mg/dL (70-110)
[2025-01-17 04:45] LABS: Basophils % (A) 0 %; Eosinophils % (A) 0 %; HCT 24.6 % (34.0-46.0); HGB 8.1 gm/dL (11.4-16.0); Hypochromasia Slight; Lymphocytes # (A) 0.8 k/uL (1.0-4.8); Lymphocytes % (A) 5 %; MCH 29.9 pg (25.0-35.0); MCHC 32.8 g/dL (31.0-37.0); MCV 91.1 fL (80.0-100.0); Mean Platelet Volume 8.4; Monocytes # (A) 0.8 k/uL (0-1.0); Monocytes % (A) 6 %; Neutrophils % (A) 88 %; Platelet Count 114 k/uL (150-450); RDW 14.7 % (11.5-15.5); WBC 14.8 k/uL (3.8-10.6)
[2025-01-17 04:46] LABS: Ionized Calcium 5.1 mg/dL (4.5-5.3)
[2025-01-17 04:54] LABS: ALT 17 U/L (4-34); AST 40 U/L (14-36); African American GFR (CKD) 43 (>60 ml/min/1.73 sqM); Albumin 3.6 g/dL (3.5-5.0); Alkaline Phosphatase 76 U/L (38-126); Anion Gap 9 mmol/L; Blood Urea Nitrogen 24 mg/dL (7-17); Carbon Dioxide 20 mmol/L (22-30); Chloride 109 mmol/L (98-107); Glucose 170 mg/dL (74-99); Non-African American GFR(CKD) 37 (>60 ml/min/1.73 sqM); Potassium 4.8 mmol/L (3.5-5.1); Sodium 138 mmol/L (137-145); Total Bilirubin 0.5 mg/dL (0.2-1.3); Total Protein 5.5 g/dL (6.3-8.2)
[2025-01-17 07:06] LABS: Glucose,Whole Blood 188 mg/dL (70-110)
--- NOTE | 2025-01-17 07:09 | XR ---
EXAMINATION TYPE: XR chest 1V portable DATE OF EXAM: 01/17/2025 5:00 AM COMPARISON: 01/16/2025 CLINICAL INDICATION: Female, 54 years old with history of Post Operative Cardiac Surgery, TECHNIQUE: XR chest 1V portable view(s) obtained. FINDINGS: The heart size is mildly prominent. The pulmonary vasculature is mildly prominent. Left lower lobe infiltrate is present. Correlate for atelectasis or pneumonia. Atypical pulmonary arpan ma could be considered. Left-sided chest tube is present. Mediastinal tube is present. Right central venous catheter sheath i s present IMPRESSION: 1. Left lower lobe infiltrate. Correlate for atelectasis or pneumonia atypical pulmonary edema. 2. Catheters present discussed above [facility], , 01/17/2025 7:06 AM
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
[2025-01-17 08:56] LABS: Glucose,Whole Blood 192 mg/dL (70-110)
[2025-01-17 10:47] LABS: Glucose,Whole Blood 199 mg/dL (70-110)
[2025-01-17] MEDS: PANTOPRAZOLE 40 MG TABLET PO SCH (11:06)
[2025-01-17] MEDS: METOPROLOL TARTRATE 25 MG TAB PO SCH (11:06)
[2025-01-17 13:08] LABS: Glucose,Whole Blood 160 mg/dL (70-110)
--- NOTE | 2025-01-17 13:38 | P.PN ---
Subjective Progress Note Date: 01/17/25 PROGRESS NOTE The patient is a 54-year-old female who presented with chest discomfort and unstable angina, underwent coronary angiography and was found to have severe triple-vessel disease. She underwent CABG yesterday with POLANCO to the LAD SVG to the OM and to the PDA with closure of her left atrial appendage. She is extubated, in sinus mechanism, hemodynamically stable on no pressors. She has a drop in the hemoglobin and is scheduled to undergo transfusion. She is complaining of chest wall tenderness and respirophasic pain. She denies any nausea or vomiting. She had no evidence of atrial fibrillation or ventricular tachyarrhythmia. January 17: The patient continues to be in sinus mechanism, she is feeling better overall but complaining of musculoskeletal and incisional chest pain. She is trying to use her incentive spirometry. She received transfusion yesterday. She has no ventricular ectopic activity or episode of atrial fibrillation. She is on no vasopressors. Medications: Aspirin, Lipitor 40 mg daily, Plavix 75 mg daily, metoprolol tartrate 25 mg twice a day, atorvastatin 40 mg daily PHYSICAL EXAMINATION: Blood pressure 160/70 heart rate 85 LUNGS: Few crackles at the bases HEART: Regular rate and rhythm, S1, S2. No S3. Systolic ejection murmur ABDOMEN: Soft, nontender, no organomegaly EXTREMETIES: No edema LAB: Hemoglobin 8.1, platelets count 114, BUN 24, creatinine 1.57 IMPRESSION: 1. Status post CABG with 3 bypasses 2. Anemia postop with no clear source of bleeding posttransfusion 3. History of hyperlipidemia 4. Chronic kidney disease 5. History of hyperlipidemia 6. History of diabetes 7. History of hypertension PLAN: 1. Increase physical activity, use of incentive spirometry 2. Follow blood pressure and adjust treatment 3. Follow renal functions 4. Depending on her progress further recommendations will be made Objective - Vital Signs Vital signs: Vital Signs Temp 98.7 F 01/17/25 08:00 Pulse 88 01/17/25 11:42 Resp 18 01/17/25 10:30 BP 134/67 01/17/25 08:00 Pulse Ox 94 L 01/17/25 10:30 FiO2 50 01/15/25 20:00 Intake & Output 01/16/25 01/17/25 01/17/25 18:59 06:59 18:59 Intake Total 1695.642 802.233 70.266 Output Total 610 515 Balance 1085.642 287.233 70.266 Weight 91.7 kg 86.8 kg Intake: IV 747 552 0.9 pressure bag 87 72 Sodium Chloride 0.9% 1, 530 480 000 ml @ 30 mls/hr IV . Q24H [facility] Rx#:[id number] ceFAZolin 2 gm In Sodium 50 Chloride 0.9% 50 ml @ 100 mls/hr IVPB ONCE ONE Rx# :[id number] co/ci 80 Intake, IV Titration 28.642 50.233 70.266 Amount Insulin Regular 100 unit 28.642 50.233 70.266 In Sodium Chloride 0.9% 100 ml @ Per Protocol IV .Q0M [facility] Rx#:[id number] Oral 200 Blood Product 920 Rc As-1 Unit 310 [id number] Rc As-1 Unit 310 [id number] Output: Chest Tube Drainage 110 100 Chest Tube Left Pleural/ 70 50 Mediastinal Chest Tube Mediastinal 40 50 Drainage 20 Right Calf 20 Urine 480 415 Other: Voiding Method Indwelling Catheter Indwelling Catheter Indwelling Catheter ABP, PAP, CO, CI - Last Documented Arterial Blood Pressure 170/78 Pulmonary Artery Pressure 38/13 Cardiac Output 5.9 Cardiac Index 3.3 - Labs CBC & Chem 7: 01/17/25 04:15 01/17/25 04:15 Labs: Abnormal Lab Results - Last 24 Hours (Table) 01/14/25 01/16/25 01/16/25 Range/Units 05:15 14:55 16:25 WBC (3.8-10.6) k/uL RBC (3.80-5.40) m/uL Hgb (11.4-16.0) gm/dL Hct (34.0-46.0) % Plt Count (150-450) k/uL Neutrophils # (1.3-7.7) k/uL Lymphocytes # (1.0-4.8) k/uL Chloride (98-107) mmol/L Carbon Dioxide (22-30) mmol/L BUN (7-17) mg/dL Creatinine (0.52-1.04) mg/dL Glucose (74-99) mg/dL POC Glucose (mg/dL) 238 H 212 H (70-110) mg/dL AST (14-36) U/L Total Protein (6.3-8.2) g/dL Crossmatch See Detail 01/16/25 01/16/25 01/16/25 Range/Units 17:54 21:06 22:09 WBC (3.8-10.6) k/uL RBC (3.80-5.40) m/uL Hgb (11.4-16.0) gm/dL Hct (34.0-46.0) % Plt Count (150-450) k/uL Neutrophils # (1.3-7.7) k/uL Lymphocytes # (1.0-4.8) k/uL Chloride (98-107) mmol/L Carbon Dioxide (22-30) mmol/L BUN (7-17) mg/dL Creatinine (0.52-1.04) mg/dL Glucose (74-99) mg/dL POC Glucose (mg/dL) 247 H 203 H 169 H (70-110) mg/dL AST (14-36) U/L Total Protein (6.3-8.2) g/dL Crossmatch 01/17/25 01/17/25 01/17/25 Range/Units 01:04 02:16 04:11 WBC (3.8-10.6) k/uL RBC (3.80-5.40) m/uL Hgb (11.4-16.0) gm/dL Hct (34.0-46.0) % Plt Count (150-450) k/uL Neutrophils # (1.3-7.7) k/uL Lymphocytes # (1.0-4.8) k/uL Chloride (98-107) mmol/L Carbon Dioxide (22-30) mmol/L BUN (7-17) mg/dL Creatinine (0.52-1.04) mg/dL Glucose (74-99) mg/dL POC Glucose (mg/dL) 181 H 196 H 189 H (70-110) mg/dL AST (14-36) U/L Total Protein (6.3-8.2) g/dL Crossmatch 01/17/25 01/17/25 01/17/25 Range/Units 04:15 04:15 07:05 WBC 14.8 H (3.8-10.6) k/uL RBC 2.70 L (3.80-5.40) m/uL Hgb 8.1 L (11.4-16.0) gm/dL Hct 24.6 L (34.0-46.0) % Plt Count 114 L (150-450) k/uL Neutrophils # 13.0 H (1.3-7.7) k/uL Lymphocytes # 0.8 L (1.0-4.8) k/uL Chloride 109 H (98-107) mmol/L Carbon Dioxide 20 L (22-30) mmol/L BUN 24 H (7-17) mg/dL Creatinine 1.57 H (0.52-1.04) mg/dL Glucose 170 H (74-99) mg/dL POC Glucose (mg/dL) 188 H (70-110) mg/dL AST 40 H (14-36) U/L Total Protein 5.5 L (6.3-8.2) g/dL Crossmatch 01/17/25 01/17/25 01/17/25 Range/Units 08:54 10:45 13:07 WBC (3.8-10.6) k/uL RBC (3.80-5.40) m/uL Hgb (11.4-16.0) gm/dL Hct (34.0-46.0) % Plt Count (150-450) k/uL Neutrophils # (1.3-7.7) k/uL Lymphocytes # (1.0-4.8) k/uL Chloride (98-107) mmol/L Carbon Dioxide (22-30) mmol/L BUN (7-17) mg/dL Creatinine (0.52-1.04) mg/dL Glucose (74-99) mg/dL POC Glucose (mg/dL) 192 H 199 H 160 H (70-110) mg/dL AST (14-36) U/L Total Protein (6.3-8.2) g/dL Crossmatch
--- NOTE | 2025-01-17 14:27 | P.PN ---
Subjective Progress Note Date: 01/17/25 Hospital Course: Patient is a 54-year-old female with past medical history of hypothyroidism, hypertension, hyperlipidemia, insulin-dependent diabetes, CKD, and JEREMY who presented to the ED with chief complaint of chest pain which started Monday. She described it as centralized radiating to the left arm and onset was while she was at rest. She states the pain subsided and then came back yesterday around noon. Patient states she took a few nitro, but the pain did not subside. She also endorses some shortness of breath and orthopnea, requiring 2 pillows to be propped at night. She states she has had an WI in October but cannot undergo cardiac cath due to poor renal function. She states her father had a history of strokes and CAD with stent placements. Patient denies any prior stenting or being on blood thinners. Patient currently endorsing some chest discomfort, shortness of breath and nausea. She denies any fevers, chills, vomiting, diarrhea, lower extremity edema. Vitals on admission temperature 98 F, heart rate 90 bpm, respiratory rate 18, blood pressure 159/85, O2 saturation 98% on room air. EKG independently interpreted as sinus rhythm, ventricular rate 86 bpm QTc of 415 ms, T wave inversions in lateral leads. CXR shows no acute cardiopulmonary process. CT chest shows no acute process or significant atherosclerotic disease of aorta. Labs on admission show WBCs 8, hemoglobin 11.4, platelets 222. PT 10.9, INR 1, PTT 24.3. Sodium 137, potassium 4.7, chloride 112, bicarb 23, BUN 28, creatinine 1.21, glucose 157. Calcium 9, magnesium 1.8. Troponins x 3 negative. NT proBNP 2340. Lipase 114. Pertinent positives and negatives discussed above, a complete review of systems was preformed and all the other systems were negative. 01/16/25 Patient seen and examined at bedside in intensive care unit resting comfortably. Tolerating minimal clear liquids. Denies flatus. Patient appears sleepy but arousable. 01/17/25 Patient seen and examined at bedside in the intensive care unit today. Patient is tolerating minimal clear liquids. She still appears sleepy but arousable. Vitals Signs Reviewed. Constitutional: Appears comfortable, cooperative, no acute distress, sitting up in bedside chair Respiratory: Lungs sounds diminished bilaterally. Respirations even, nonlabored. Currently on 2 L nasal cannula with oxygen saturation 98%. Able to achieve 500 mL on incentive spirometry. Strong nonproductive cough. Cardiovascular: S1, S2 present. Regular rate and rhythm, sinus rhythm on telemetry. Sternum stable. Palpable peripheral pulses bilaterally. No edema present. No calf pain or tenderness noted. Heart hugger, antiembolism stockings, SCDs present. Gastrointestinal: Abdomen soft, nontender, nondistended. Hypoactive bowel sounds present 4 quadrants. Genitourinary: Sellers present draining clear, yellow urine. Output overnight 40-70 mL per hour Integumentary: Skin is warm and dry with evidence of good perfusion. Anterior chest incision well approximated and covered with dry intact dressing. Left radial artery as well as right lower extremity EVH site well approximated without redness, SAM drains present with minimal drainage Neurologic: Cranial nerves II through XII intact Musculoskeletal: Able to move all extremities, strength equal bilaterally Psychiatric: Drowsy but oriented to person place and time Invasive lines: Right internal jugular Canyon/Cordis, right radial arterial line, mediastinal/left pleural chest tubes, left radial artery as well as right lower extremity EVH SAM drains present. Data Reviewed Today: Patient Labs: WBCs 14.8, hemoglobin 8.1, hematocrit 24.6, MCV 91.1, platelets 115. Sodium 130, potassium 4.8, chloride 109, bicarb 20, BUN 24, creatinine 1.57, glucose 170. AST 40, ALT 17, ALP 76. Imaging: No new imaging Assessment and Plan: Patient is a 54-year-old female with past medical history of hypothyroidism, hypertension, hyperlipidemia, insulin-dependent diabetes, CKD, and JEREMY who presented to the ED with chief complaint of chest pain. Chronic kidney disease stage IIIa, stable Continue to monitor renal function Continue IV fluids Hyperglycemia in insulin-dependent diabetic Blood glucose monitoring every hour Continue insulin drip Hypoglycemia precautions Will adjust insulin accordingly Unstable angina Cardiac cath showed severe triple-vessel disease status post CABG POD #1 EKG independently interpreted as sinus rhythm, ventricular rate 86 bpm QTc of 415 ms, T wave inversions in lateral leads Troponin x 3 negative Echocardiogram showed EF between 45 to 50% body rolling machine tender Postop management per CT surgery and ICU team Acute blood loss anemia secondary to above, resolved Patient was transfused total of 4 units Continue to monitor CBC Transfuse if hemoglobin less than 7 Chronic: Hypertension Continue lisinopril 10 mg daily Continue metoprolol 25 mg twice daily Hypothyroidism Continue Synthroid 175 mcg daily Hyperlipidemia Continue Lipitor 40 mg daily Anxiety Continue Lexapro 10 mg daily Xanax as needed Insomnia Continue hydroxyzine 25 mg p.o. at bedtime as needed F: Deferred to CT surgery and ICU E: Replete as needed N: Clear liquids A: As tolerated DVT prophylaxis: Per primary team The patient is admitted with an anticipated more than 2 midnight stay for CABG CODE STATUS: Full code Discussed with: Patient Anticipated discharge place: Pending clinical course Attestation I have seen and examined this patient with my resident , discussed the same with the resident/JOSÉ MIGUEL, and agree with the dictator's assessment and plan as written GENERAL: The patient is alert and oriented x3, not in acute distress HEENT: Pupils are round and equally reacting to light. EOMI. No scleral icterus. No conjunctival pallor. Normocephalic, atraumatic. No pharyngeal erythema. No thyromegaly. CARDIOVASCULAR: S1 and S2 present. No murmurs, rubs, or gallops. PULMONARY: Diminished breath sounds at the bases bilaterally, sternotomy surgical incision seen ABDOMEN: Soft, nontender, nondistended, normoactive bowel sounds. No palpable organomegaly. MUSCULOSKELETAL: No joint swelling or deformity. EXTREMITIES: No cyanosis, clubbing, or pedal edema. NEUROLOGICAL: Gross neurological examination did not reveal any focal deficits. SKIN: No rashes. Dr. Roshan paredes Objective - Vital Signs Vital signs: Vital Signs Temp 99.2 F 01/17/25 04:00 Pulse 80 01/17/25 08:16 Resp 16 01/17/25 07:30 BP 134/67 01/17/25 05:30 Pulse Ox 96 01/17/25 08:16 FiO2 50 01/15/25 20:00 Intake & Output 01/16/25 01/17/25 01/17/25 18:59 06:59 18:59 Intake Total 1695.642 802.233 19.833 Output Total 610 515 Balance 1085.642 287.233 19.833 Weight 91.7 kg 86.8 kg Intake: IV 747 552 0.9 pressure bag 87 72 Sodium Chloride 0.9% 1, 530 480 000 ml @ 30 mls/hr IV . Q24H [facility] Rx#:[id number] ceFAZolin 2 gm In Sodium 50 Chloride 0.9% 50 ml @ 100 mls/hr IVPB ONCE ONE Rx# :[id number] co/ci 80 Intake, IV Titration 28.642 50.233 19.833 Amount Insulin Regular 100 unit 28.642 50.233 19.833 In Sodium Chloride 0.9% 100 ml @ Per Protocol IV .Q0M [facility] Rx#:[id number] Oral 200 Blood Product 920 Rc As-1 Unit 310 [id number] Rc As-1 Unit 310 [id number] Output: Chest Tube Drainage 110 100 Chest Tube Left Pleural/ 70 50 Mediastinal Chest Tube Mediastinal 40 50 Drainage 20 Right Calf 20 Urine 480 415 Other: Voiding Method Indwelling Catheter Indwelling Catheter ABP, PAP, CO, CI - Last Documented Arterial Blood Pressure 134/57 Pulmonary Artery Pressure 38/13 Cardiac Output 5.9 Cardiac Index 3.3 - Labs CBC & Chem 7: 01/18/25 04:22 01/18/25 04:22 Labs: Abnormal Lab Results - Last 24 Hours (Table) 01/14/25 01/16/25 01/16/25 Range/Units 05:15 09:06 12:00 WBC (3.8-10.6) k/uL RBC 2.68 L (3.80-5.40) m/uL Hgb 8.1 L D (11.4-16.0) gm/dL Hct 24.1 L (34.0-46.0) % Plt Count 101 L (150-450) k/uL Neutrophils # (1.3-7.7) k/uL Lymphocytes # (1.0-4.8) k/uL Chloride (98-107) mmol/L Carbon Dioxide (22-30) mmol/L BUN (7-17) mg/dL Creatinine (0.52-1.04) mg/dL Glucose (74-99) mg/dL POC Glucose (mg/dL) 135 H (70-110) mg/dL AST (14-36) U/L Total Protein (6.3-8.2) g/dL Crossmatch See Detail 01/16/25 01/16/25 01/16/25 Range/Units 12:02 13:03 14:55 WBC (3.8-10.6) k/uL RBC (3.80-5.40) m/uL Hgb (11.4-16.0) gm/dL Hct (34.0-46.0) % Plt Count (150-450) k/uL Neutrophils # (1.3-7.7) k/uL Lymphocytes # (1.0-4.8) k/uL Chloride (98-107) mmol/L Carbon Dioxide (22-30) mmol/L BUN (7-17) mg/dL Creatinine (0.52-1.04) mg/dL Glucose (74-99) mg/dL POC Glucose (mg/dL) 142 H 133 H 238 H (70-110) mg/dL AST (14-36) U/L Total Protein (6.3-8.2) g/dL Crossmatch 01/16/25 01/16/25 01/16/25 Range/Units 16:25 17:54 21:06 WBC (3.8-10.6) k/uL RBC (3.80-5.40) m/uL Hgb (11.4-16.0) gm/dL Hct (34.0-46.0) % Plt Count (150-450) k/uL Neutrophils # (1.3-7.7) k/uL Lymphocytes # (1.0-4.8) k/uL Chloride (98-107) mmol/L Carbon Dioxide (22-30) mmol/L BUN (7-17) mg/dL Creatinine (0.52-1.04) mg/dL Glucose (74-99) mg/dL POC Glucose (mg/dL) 212 H 247 H 203 H (70-110) mg/dL AST (14-36) U/L Total Protein (6.3-8.2) g/dL Crossmatch 01/16/25 01/17/25 01/17/25 Range/Units 22:09 01:04 02:16 WBC (3.8-10.6) k/uL RBC (3.80-5.40) m/uL Hgb (11.4-16.0) gm/dL Hct (34.0-46.0) % Plt Count (150-450) k/uL Neutrophils # (1.3-7.7) k/uL Lymphocytes # (1.0-4.8) k/uL Chloride (98-107) mmol/L Carbon Dioxide (22-30) mmol/L BUN (7-17) mg/dL Creatinine (0.52-1.04) mg/dL Glucose (74-99) mg/dL POC Glucose (mg/dL) 169 H 181 H 196 H (70-110) mg/dL AST (14-36) U/L Total Protein (6.3-8.2) g/dL Crossmatch 01/17/25 01/17/25 01/17/25 Range/Units 04:11 04:15 04:15 WBC 14.8 H (3.8-10.6) k/uL RBC 2.70 L (3.80-5.40) m/uL Hgb 8.1 L (11.4-16.0) gm/dL Hct 24.6 L (34.0-46.0) % Plt Count 114 L (150-450) k/uL Neutrophils # 13.0 H (1.3-7.7) k/uL Lymphocytes # 0.8 L (1.0-4.8) k/uL Chloride 109 H (98-107) mmol/L Carbon Dioxide 20 L (22-30) mmol/L BUN 24 H (7-17) mg/dL Creatinine 1.57 H (0.52-1.04) mg/dL Glucose 170 H (74-99) mg/dL POC Glucose (mg/dL) 189 H (70-110) mg/dL AST 40 H (14-36) U/L Total Protein 5.5 L (6.3-8.2) g/dL Crossmatch 01/17/25 Range/Units 07:05 WBC (3.8-10.6) k/uL RBC (3.80-5.40) m/uL Hgb (11.4-16.0) gm/dL Hct (34.0-46.0) % Plt Count (150-450) k/uL Neutrophils # (1.3-7.7) k/uL Lymphocytes # (1.0-4.8) k/uL Chloride (98-107) mmol/L Carbon Dioxide (22-30) mmol/L BUN (7-17) mg/dL Creatinine (0.52-1.04) mg/dL Glucose (74-99) mg/dL POC Glucose (mg/dL) 188 H (70-110) mg/dL AST (14-36) U/L Total Protein (6.3-8.2) g/dL Crossmatch
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
[2025-01-17 14:58] LABS: Glucose,Whole Blood 80 mg/dL (70-110)
[2025-01-17 15:39] LABS: Glucose,Whole Blood 71 mg/dL (70-110)
[2025-01-17 16:00] LABS: Glucose,Whole Blood 81 mg/dL (70-110)
[2025-01-17] MEDS: bisacodyL 10 MG SUPP RECTAL PRN (17:00)
[2025-01-17 18:48] LABS: Glucose,Whole Blood 91 mg/dL (70-110)
[2025-01-17] MEDS: ALBUMIN HUMAN 5% 500 ML in EMPTY BAG 1 BAG IVPB ONE ×6 (19:21→19:22)
[2025-01-17] MEDS: ALBUMIN HUMAN 25% 50 ML in EMPTY BAG 1 BAG IVPB ONE (19:21)
[2025-01-17] MEDS: NOREPINEPHRINE 8 MG in SODIUM CHLORIDE 0.9% 250 ML IV SCH (19:21)
[2025-01-17] MEDS: CLEVIDIPINE BUTYRATE 25 MG in EMPTY BAG 1 BAG IV SCH (19:23)
[2025-01-17] MEDS: ELECTROLYTE-A SOLUTION 1,000 ML with POTASSIUM CHLORIDE 40 MEQ, MAGNESIUM SULFATE 16 ME... IV ONE (19:23)
[2025-01-17] MEDS: ELECTROLYTE-A SOLUTION 1,000 ML with POTASSIUM CHLORIDE 100 MEQ, MAGNESIUM SULFATE 16 M... IV ONE (19:23)
[2025-01-17] MEDS: CHLORHEXIDINE GLUCONATE 15 ML CUP MUCOUS MEM ONE (19:23)
[2025-01-17] MEDS: CALCIUM CHLORIDE 100 MG/ML 10 ML SYRINGE IVP ONE (19:23)
[2025-01-17] MEDS: MANNITOL 25% 12.5 GM/50 ML VIAL IV ONE ×2 (19:24→19:25)
[2025-01-17] MEDS: MAGNESIUM SULFATE 16.24 MEQ in EMPTY SYRINGE 1 SYR IV ONE (19:24)
[2025-01-17] MEDS: HEPARIN SODIUM 1,000 UN/ML (10ML VL) IV ONE (19:24)
[2025-01-17] MEDS: PROTAMINE SULFATE 250 MG in EMPTY BAG 1 BAG IV ONE (19:25)
[2025-01-17] MEDS: TRANEXAMIC ACID 2,000 MG in SODIUM CHLORIDE 0.9% 80 ML IV ONE ×2 (19:25→19:26)
[2025-01-17] MEDS: SODIUM BICARB 8.4% 50 ML SYR (1 MEQ/ML) IV ONE (19:25)
[2025-01-17] MEDS: PHENYLEPHRINE 40 MG in SODIUM CHLORIDE 0.9% 250 ML IV ONE (19:25)
[2025-01-17] MEDS: NITROGLYCERIN-D5W PMX 25 MG/250 ML BTL IV ONE (19:25)
[2025-01-17] MEDS: PROTAMINE SULFATE 10 MG/ML 25 ML VIAL IV ONE (19:25)
[2025-01-17] MEDS: NITROGLYCERIN-D5W PMX 50 MG in DEXTROSE/WATER 1 250ML.BAG IV SCH (19:25)
[2025-01-17] MEDS: MD COMMUNICATION TO PHARMACY 1 EACH MISC PO ONE (19:28)
[2025-01-17] MEDS: PHENYLEPHRINE 10 MG/ML VIAL IV ONE (19:28)
[2025-01-17 20:48] LABS: Glucose,Whole Blood 90 mg/dL (70-110)
[2025-01-18 04:44] LABS: Basophils % (A) 0 %; Eosinophils # (A) 0.1 k/uL (0-0.7); Eosinophils % (A) 1 %; HCT 23.3 % (34.0-46.0); HGB 7.7 gm/dL (11.4-16.0); Lymphocytes % (A) 8 %; MCH 29.9 pg (25.0-35.0); MCV 90.6 fL (80.0-100.0); Monocytes # (A) 0.7 k/uL (0-1.0); Monocytes % (A) 6 %; Neutrophils # (A) 10.8 k/uL (1.3-7.7); Neutrophils % (A) 84 %; Platelet Count 126 k/uL (150-450); RBC 2.57 m/uL (3.80-5.40); RDW 14.6 % (11.5-15.5); WBC 12.9 k/uL (3.8-10.6)
[2025-01-18 04:59] LABS: ALT 18 U/L (4-34); AST 39 U/L (14-36); African American GFR (CKD) 48 (>60 ml/min/1.73 sqM); Albumin 3.3 g/dL (3.5-5.0); Alkaline Phosphatase 112 U/L (38-126); Anion Gap 10 mmol/L; Blood Urea Nitrogen 31 mg/dL (7-17); Calcium 8.9 mg/dL (8.4-10.2); Carbon Dioxide 19 mmol/L (22-30); Chloride 110 mmol/L (98-107); Glucose 113 mg/dL (74-99); Non-African American GFR(CKD) 42 (>60 ml/min/1.73 sqM); Potassium 4.6 mmol/L (3.5-5.1); Sodium 139 mmol/L (137-145); Total Bilirubin 0.9 mg/dL (0.2-1.3); Total Protein 5.4 g/dL (6.3-8.2)
[2025-01-18 06:38] LABS: Glucose,Whole Blood 124 mg/dL (70-110)
--- NOTE | 2025-01-18 08:37 | XR ---
EXAMINATION TYPE: XR chest 2V DATE OF EXAM: 01/18/2025 6:13 AM COMPARISON: 01/17/2025 CLINICAL INDICATION: Female, 54 years old with history of post op CABG, TECHNIQUE: XR chest 2V view(s) obtained. FINDINGS: The heart size is normal. The pulmonary vasculature is normal. Mild increased perihilar lung markings present. Correlate for atelectasis or volume overload. Left lower lobe infiltrate is improving IMPRESSION: 1. Improving left lower lobe infiltrate. 2. Mild increased perihilar lung markings, correlate for volume overload [facility], , 01/18/2025 8:34 AM
[2025-01-18] MEDS: METOPROLOL TARTRATE 50 MG TAB PO SCH (08:52)
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
--- NOTE | 2025-01-18 09:54 | P.PN ---
Subjective Progress Note Date: 01/18/25 PROGRESS NOTE The patient is a 54-year-old female who presented with chest discomfort and unstable angina, underwent coronary angiography and was found to have severe triple-vessel disease. She underwent CABG yesterday with POLANCO to the LAD SVG to the OM and to the PDA with closure of her left atrial appendage. She is extubated, in sinus mechanism, hemodynamically stable on no pressors. She has a drop in the hemoglobin and is scheduled to undergo transfusion. She is complaining of chest wall tenderness and respirophasic pain. She denies any nausea or vomiting. She had no evidence of atrial fibrillation or ventricular tachyarrhythmia. January 17: The patient continues to be in sinus mechanism, she is feeling better overall but complaining of musculoskeletal and incisional chest pain. She is trying to use her incentive spirometry. She received transfusion yesterday. She has no ventricular ectopic activity or episode of atrial fibrillation. She is on no vasopressors. January 18: The patient continues to have incisional discomfort but overall better. She feels tired. She has no nausea. She continues to be in sinus mechanism. She walked yesterday. She has no dizziness or palpitations. She is using her incentive spirometry. Medications: Aspirin, Lipitor 40 mg daily, Plavix 75 mg daily, metoprolol tartrate 50 mg twice a day, atorvastatin 40 mg daily PHYSICAL EXAMINATION: Blood pressure 157/60 heart rate 90 LUNGS: Few crackles at the bases HEART: Regular rate and rhythm, S1, S2. No S3. Systolic ejection murmur ABDOMEN: Soft, nontender, no organomegaly EXTREMETIES: No edema LAB: Hemoglobin 7.7, platelets count 126, BUN 31, creatinine 1.42 IMPRESSION: 1. Status post CABG with 3 bypasses 2. Anemia postop with no clear source of bleeding, posttransfusion, stable 3. History of hyperlipidemia 4. Chronic kidney disease, stable 5. Hypertension PLAN: 1. Increase physical activity, use of incentive spirometry 2. Follow blood pressure and adjust treatment, if needed add hydralazine 3. Follow renal functions 4. Depending on her progress further recommendations will be made Objective - Vital Signs Vital signs: Vital Signs Temp 99.0 F 01/18/25 08:00 Pulse 93 01/18/25 09:00 Resp 11 L 01/18/25 09:00 BP 134/67 01/17/25 08:00 Pulse Ox 95 02/22/25 09:00 FiO2 50 01/15/25 20:00 Intake & Output 01/17/25 01/18/25 01/18/25 18:59 06:59 18:59 Intake Total 136.266 556.934 503 Output Total 475 800 Balance -338.734 -243.066 503 Weight 93 kg Intake: IV 66 36 3 0.9 pressure bag 66 36 3 Intake, IV Titration 70.266 20.934 Amount Insulin Regular 100 unit 70.266 20.934 In Sodium Chloride 0.9% 100 ml @ Per Protocol IV .Q0M [facility] Rx#:[id number] Oral 500 500 Output: Urine 475 800 Other: Voiding Method Indwelling Catheter Toilet # Bowel Movements 1 ABP, PAP, CO, CI - Last Documented Arterial Blood Pressure 157/63 Pulmonary Artery Pressure 38/13 Cardiac Output 5.9 Cardiac Index 3.3 - Labs CBC & Chem 7: 01/18/25 04:22 01/18/25 04:22 Labs: Abnormal Lab Results - Last 24 Hours (Table) 01/17/25 01/17/25 01/18/25 Range/Units 10:45 13:07 04:22 WBC 12.9 H (3.8-10.6) k/uL RBC 2.57 L (3.80-5.40) m/uL Hgb 7.7 L (11.4-16.0) gm/dL Hct 23.3 L (34.0-46.0) % Plt Count 126 L (150-450) k/uL Neutrophils # 10.8 H (1.3-7.7) k/uL Chloride (98-107) mmol/L Carbon Dioxide (22-30) mmol/L BUN (7-17) mg/dL Creatinine (0.52-1.04) mg/dL Glucose (74-99) mg/dL POC Glucose (mg/dL) 199 H 160 H (70-110) mg/dL AST (14-36) U/L Total Protein (6.3-8.2) g/dL Albumin (3.5-5.0) g/dL 01/18/25 01/18/25 Range/Units 04:22 06:37 WBC (3.8-10.6) k/uL RBC (3.80-5.40) m/uL Hgb (11.4-16.0) gm/dL Hct (34.0-46.0) % Plt Count (150-450) k/uL Neutrophils # (1.3-7.7) k/uL Chloride 110 H (98-107) mmol/L Carbon Dioxide 19 L (22-30) mmol/L BUN 31 H (7-17) mg/dL Creatinine 1.42 H (0.52-1.04) mg/dL Glucose 113 H (74-99) mg/dL POC Glucose (mg/dL) 124 H (70-110) mg/dL AST 39 H (14-36) U/L Total Protein 5.4 L (6.3-8.2) g/dL Albumin 3.3 L (3.5-5.0) g/dL
[2025-01-18 11:32] LABS: Glucose,Whole Blood 185 mg/dL (70-110)
[2025-01-18] MEDS: INSULIN LISPRO (HumaLOG) 100 UNIT/ML 10 mL VL SQ SCH (11:34)
[2025-01-18] MEDS: ASCORBIC ACID 500 MG TAB PO SCH (11:34)
[2025-01-18] MEDS: FERROUS SULFATE 325 MG TAB PO SCH (11:34)
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
--- NOTE | 2025-01-18 14:40 | P.PN ---
Subjective Progress Note Date: 01/18/25 Hospital Course: Patient is a 54-year-old female with past medical history of hypothyroidism, hypertension, hyperlipidemia, insulin-dependent diabetes, CKD, and JEREMY who presented to the ED with chief complaint of chest pain which started Monday. She described it as centralized radiating to the left arm and onset was while she was at rest. She states the pain subsided and then came back yesterday around noon. Patient states she took a few nitro, but the pain did not subside. She also endorses some shortness of breath and orthopnea, requiring 2 pillows to be propped at night. She states she has had an UT in October but cannot undergo cardiac cath due to poor renal function. She states her father had a history of strokes and CAD with stent placements. Patient denies any prior stenting or being on blood thinners. Patient currently endorsing some chest discomfort, shortness of breath and nausea. She denies any fevers, chills, vomiting, diarrhea, lower extremity edema. Vitals on admission temperature 98 F, heart rate 90 bpm, respiratory rate 18, blood pressure 159/85, O2 saturation 98% on room air. EKG independently interpreted as sinus rhythm, ventricular rate 86 bpm QTc of 415 ms, T wave inversions in lateral leads. CXR shows no acute cardiopulmonary process. CT chest shows no acute process or significant atherosclerotic disease of aorta. Labs on admission show WBCs 8, hemoglobin 11.4, platelets 222. PT 10.9, INR 1, PTT 24.3. Sodium 137, potassium 4.7, chloride 112, bicarb 23, BUN 28, creatinine 1.21, glucose 157. Calcium 9, magnesium 1.8. Troponins x 3 negative. NT proBNP 2340. Lipase 114. Pertinent positives and negatives discussed above, a complete review of systems was preformed and all the other systems were negative. 01/16/25 Patient seen and examined at bedside in intensive care unit resting comfortably. Tolerating minimal clear liquids. Denies flatus. Patient appears sleepy but arousable. 01/17/25 Patient seen and examined at bedside in the intensive care unit today. Patient is tolerating minimal clear liquids. She still appears sleepy but arousable. 01/18/25 Patient seen and examined at bedside in the intensive care unit today. Patient is sitting in chair today. Patient is much more alert today and communicating. She is using her incentive spirometer and saturating well on room air. Chest tubes have been removed. She denies any acute complaints. Vitals Signs Reviewed. Constitutional: Appears comfortable, cooperative, no acute distress, sitting up in bedside chair Respiratory: Lungs sounds diminished bilaterally. Respirations even, nonlabored. Currently saturating well on room air. Cardiovascular: S1, S2 present. Regular rate and rhythm, sinus rhythm on telemetry. Sternum stable. Palpable peripheral pulses bilaterally. No edema present. No calf pain or tenderness noted. Heart hugger, antiembolism stockings, SCDs present. Gastrointestinal: Abdomen soft, nontender, nondistended. Hypoactive bowel sounds present 4 quadrants. Genitourinary: Sellers present draining clear, yellow urine. Output overnight 40-70 mL per hour Integumentary: Skin is warm and dry with evidence of good perfusion. Anterior chest incision well approximated and covered with dry intact dressing. Neurologic: Cranial nerves II through XII intact Musculoskeletal: Able to move all extremities, strength equal bilaterally Psychiatric: Alert and oriented to person place and time Data Reviewed Today: Patient Labs: WBCs 12.9, hemoglobin 7.7, MCV 90.6, platelets 126. Sodium 139, potassium 4.6, chloride 110, bicarb 19, BUN 31, creatinine 1.42, glucose 113. Imaging: No new imaging Assessment and Plan: Patient is a 54-year-old female with past medical history of hypothyroidism, hypertension, hyperlipidemia, insulin-dependent diabetes, CKD, and JEREMY who presented to the ED with chief complaint of chest pain. Patient underwent cardiac catheterization and then ultimately CABG. Chronic kidney disease stage IIIa, stable Continue to monitor renal function Continue IV fluids Hyperglycemia in insulin-dependent diabetic Blood glucose monitoring every hour Continue insulin drip Hypoglycemia precautions Will adjust insulin accordingly Unstable angina Cardiac cath showed severe triple-vessel disease status post CABG POD #3 EKG independently interpreted as sinus rhythm, ventricular rate 86 bpm QTc of 415 ms, T wave inversions in lateral leads Troponin x 3 negative Echocardiogram showed EF between 45 to 50% equipment monitor phototypesetting Postop management per CT surgery and ICU team Acute blood loss anemia secondary to above, resolved Patient was transfused total of 4 units Continue to monitor CBC Transfuse if hemoglobin less than 7 Chronic: Hypertension Continue lisinopril 10 mg daily Continue metoprolol 25 mg twice daily Hypothyroidism Continue Synthroid 175 mcg daily Hyperlipidemia Continue Lipitor 40 mg daily Anxiety Continue Lexapro 10 mg daily Xanax as needed Insomnia Continue hydroxyzine 25 mg p.o. at bedtime as needed F: Deferred to CT surgery and ICU E: Replete as needed N: Clear liquids A: As tolerated DVT prophylaxis: Per primary team The patient is admitted with an anticipated more than 2 midnight stay for CABG CODE STATUS: Full code Discussed with: Patient Anticipated discharge place: Pending clinical course Attestation I have seen and examined this patient with my resident , discussed the same with the resident/JOSÉ MIGUEL, and agree with the dictator's assessment and plan as written GENERAL: The patient is alert and oriented x3, not in any acute distress. HEENT: Pupils are round and equally reacting to light. EOMI. No scleral icterus. No conjunctival pallor. Normocephalic, atraumatic. No pharyngeal erythema. No thyromegaly. CARDIOVASCULAR: S1 and S2 present. No murmurs, rubs, or gallops. PULMONARY: Diminished breath sounds at bases bilaterally ABDOMEN: Soft, nontender, nondistended, normoactive bowel sounds. No palpable organomegaly. MUSCULOSKELETAL: No joint swelling or deformity. EXTREMITIES: No cyanosis, clubbing, or pedal edema. NEUROLOGICAL: Gross neurological examination did not reveal any focal deficits. SKIN: No rashes. Dr. Roshan paredes Objective - Vital Signs Vital signs: Vital Signs Temp 98.5 F 01/18/25 04:00 Pulse 85 01/18/25 07:00 Resp 27 H 01/18/25 07:00 BP 134/67 01/17/25 08:00 Pulse Ox 93 L 01/18/25 07:00 FiO2 50 01/15/25 20:00 Intake & Output 01/17/25 01/18/25 01/18/25 18:59 06:59 18:59 Intake Total 136.266 556.934 503 Output Total 475 800 Balance -338.734 -243.066 503 Weight 93 kg Intake: IV 66 36 3 0.9 pressure bag 66 36 3 Intake, IV Titration 70.266 20.934 Amount Insulin Regular 100 unit 70.266 20.934 In Sodium Chloride 0.9% 100 ml @ Per Protocol IV .Q0M [facility] Rx#:[id number] Oral 500 500 Output: Urine 475 800 Other: Voiding Method Indwelling Catheter Toilet # Bowel Movements 1 ABP, PAP, CO, CI - Last Documented Arterial Blood Pressure 154/68 Pulmonary Artery Pressure 38/13 Cardiac Output 5.9 Cardiac Index 3.3 - Labs CBC & Chem 7: 01/19/25 07:04 01/19/25 07:04 Labs: Abnormal Lab Results - Last 24 Hours (Table) 01/17/25 01/17/25 01/17/25 Range/Units 08:54 10:45 13:07 WBC (3.8-10.6) k/uL RBC (3.80-5.40) m/uL Hgb (11.4-16.0) gm/dL Hct (34.0-46.0) % Plt Count (150-450) k/uL Neutrophils # (1.3-7.7) k/uL Chloride (98-107) mmol/L Carbon Dioxide (22-30) mmol/L BUN (7-17) mg/dL Creatinine (0.52-1.04) mg/dL Glucose (74-99) mg/dL POC Glucose (mg/dL) 192 H 199 H 160 H (70-110) mg/dL AST (14-36) U/L Total Protein (6.3-8.2) g/dL Albumin (3.5-5.0) g/dL 01/18/25 01/18/25 01/18/25 Range/Units 04:22 04:22 06:37 WBC 12.9 H (3.8-10.6) k/uL RBC 2.57 L (3.80-5.40) m/uL Hgb 7.7 L (11.4-16.0) gm/dL Hct 23.3 L (34.0-46.0) % Plt Count 126 L (150-450) k/uL Neutrophils # 10.8 H (1.3-7.7) k/uL Chloride 110 H (98-107) mmol/L Carbon Dioxide 19 L (22-30) mmol/L BUN 31 H (7-17) mg/dL Creatinine 1.42 H (0.52-1.04) mg/dL Glucose 113 H (74-99) mg/dL POC Glucose (mg/dL) 124 H (70-110) mg/dL AST 39 H (14-36) U/L Total Protein 5.4 L (6.3-8.2) g/dL Albumin 3.3 L (3.5-5.0) g/dL
[2025-01-18 16:08] LABS: Glucose,Whole Blood 213 mg/dL (70-110)
[2025-01-18 20:04] LABS: Glucose,Whole Blood 334 mg/dL (70-110)
[2025-01-18] MEDS: TEMAZEPAM 7.5 MG CAP PO PRN (23:20)
[2025-01-19 06:55] LABS: Glucose,Whole Blood 206 mg/dL (70-110)
[2025-01-19 07:17] LABS: HCT 26.1 % (34.0-46.0); HGB 8.6 gm/dL (11.4-16.0); MCH 30.2 pg (25.0-35.0); MCHC 32.9 g/dL (31.0-37.0); MCV 91.7 fL (80.0-100.0); Mean Platelet Volume 8.2; Platelet Count 210 k/uL (150-450); RBC 2.84 m/uL (3.80-5.40); RDW 14.2 % (11.5-15.5); WBC 12.1 k/uL (3.8-10.6)
[2025-01-19 07:33] LABS: ALT 35 U/L (4-34); African American GFR (CKD) 71 (>60 ml/min/1.73 sqM); Albumin 3.4 g/dL (3.5-5.0); Anion Gap 10 mmol/L; Blood Urea Nitrogen 29 mg/dL (7-17); Calcium 8.8 mg/dL (8.4-10.2); Carbon Dioxide 20 mmol/L (22-30); Chloride 107 mmol/L (98-107); Glucose 200 mg/dL (74-99); Non-African American GFR(CKD) 61 (>60 ml/min/1.73 sqM); Sodium 137 mmol/L (137-145); Total Bilirubin 0.9 mg/dL (0.2-1.3)
[2025-01-19 07:36] LABS: AST 47 U/L (14-36); Alkaline Phosphatase 134 U/L (38-126); Potassium 4.7 mmol/L (3.5-5.1)
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
--- NOTE | 2025-01-19 09:12 | XR ---
EXAMINATION TYPE: XR chest 1V DATE OF EXAM: 01/19/2025 3:15 AM COMPARISON: 01/18/2025 CLINICAL INDICATION: Female, 54 years old with history of Postop CABG, TECHNIQUE: XR chest 1V view(s) obtained. FINDINGS: The heart size is normal. The pulmonary vasculature is normal. This may be improved. Some minimal subsegmental atelectasis may be present at the left base. IMPRESSION: 1. Mild subsegmental atelectasis, persistent from comparison [facility], , 01/19/2025 9:10 AM
[2025-01-19] MEDS: LOSARTAN 25 MG TAB PO SCH (09:42)
--- NOTE | 2025-01-19 10:03 | P.PN ---
Subjective Progress Note Date: 01/19/25 PROGRESS NOTE The patient is a 54-year-old female who presented with chest discomfort and unstable angina, underwent coronary angiography and was found to have severe triple-vessel disease. She underwent CABG yesterday with POLANCO to the LAD SVG to the OM and to the PDA with closure of her left atrial appendage. She is extubated, in sinus mechanism, hemodynamically stable on no pressors. She has a drop in the hemoglobin and is scheduled to undergo transfusion. She is complaining of chest wall tenderness and respirophasic pain. She denies any nausea or vomiting. She had no evidence of atrial fibrillation or ventricular tachyarrhythmia. January 17: The patient continues to be in sinus mechanism, she is feeling better overall but complaining of musculoskeletal and incisional chest pain. She is trying to use her incentive spirometry. She received transfusion yesterday. She has no ventricular ectopic activity or episode of atrial fibrillation. She is on no vasopressors. January 18: The patient continues to have incisional discomfort but overall better. She feels tired. She has no nausea. She continues to be in sinus mechanism. She walked yesterday. She has no dizziness or palpitations. She is using her incentive spirometry. January 19: She is looking and feeling better today, ambulated. Continues to be in sinus mechanism. She has been using her incentive spirometry. She denies any dizziness or palpitations. Her urinary output has been good and she is on no vasopressors. Started on losartan today Medications: Aspirin, Lipitor 40 mg daily, Plavix 75 mg daily, metoprolol tartrate 50 mg twice a day, atorvastatin 40 mg daily, losartan 25 mg daily PHYSICAL EXAMINATION: Blood pressure 153/70 heart rate 80 LUNGS: Clear to auscultation HEART: Regular rate and rhythm, S1, S2. No S3. Systolic ejection murmur ABDOMEN: Soft, nontender, no organomegaly EXTREMETIES: No edema LAB: Hemoglobin 8.6, platelets count 91.7, BUN 29, creatinine 1.03 IMPRESSION: 1. Status post CABG with 3 bypasses 2. Anemia postop with no clear source of bleeding, posttransfusion, stable 3. History of hyperlipidemia 4. Chronic kidney disease, improving 5. Hypertension PLAN: 1. Increase physical activity, use of incentive spirometry 2. Follow blood pressure and adjust treatment, if needed increase losartan 3. Follow renal functions 4. Depending on her progress further recommendations will be made Objective - Vital Signs Vital signs: Vital Signs Temp 98.6 F 01/19/25 08:00 Pulse 81 01/19/25 09:00 Resp 21 01/19/25 09:00 BP 153/71 01/19/25 09:00 Pulse Ox 96 01/19/25 09:00 FiO2 50 01/15/25 20:00 Intake & Output 01/18/25 01/19/25 01/19/25 18:59 06:59 18:59 Intake Total 1003 490 40 Output Total 500 600 300 Balance 503 -110 -260 Weight 91.4 kg Intake: IV 3 0.9 pressure bag 3 Intake, IV Titration 10 Amount Sodium Chloride 0.9% 1, 10 000 ml @ 30 mls/hr IV . Q24H [facility] Rx#:[id number] Oral 1000 480 40 Output: Urine 500 600 300 Other: Voiding Method Toilet Toilet # Voids 1 1 # Bowel Movements 1 1 ABP, PAP, CO, CI - Last Documented Arterial Blood Pressure 157/63 Pulmonary Artery Pressure 38/13 Cardiac Output 5.9 Cardiac Index 3.3 - Labs CBC & Chem 7: 01/19/25 07:04 01/19/25 07:04 Labs: Abnormal Lab Results - Last 24 Hours (Table) 01/18/25 01/18/25 01/18/25 Range/Units 11:31 16:06 20:02 WBC (3.8-10.6) k/uL RBC (3.80-5.40) m/uL Hgb (11.4-16.0) gm/dL Hct (34.0-46.0) % Carbon Dioxide (22-30) mmol/L BUN (7-17) mg/dL Glucose (74-99) mg/dL POC Glucose (mg/dL) 185 H 213 H 334 H (70-110) mg/dL AST (14-36) U/L ALT (4-34) U/L Alkaline Phosphatase (38-126) U/L Total Protein (6.3-8.2) g/dL Albumin (3.5-5.0) g/dL 01/19/25 01/19/25 01/19/25 Range/Units 06:54 07:04 07:04 WBC 12.1 H (3.8-10.6) k/uL RBC 2.84 L (3.80-5.40) m/uL Hgb 8.6 L (11.4-16.0) gm/dL Hct 26.1 L (34.0-46.0) % Carbon Dioxide 20 L (22-30) mmol/L BUN 29 H (7-17) mg/dL Glucose 200 H (74-99) mg/dL POC Glucose (mg/dL) 206 H (70-110) mg/dL AST 47 H (14-36) U/L ALT 35 H (4-34) U/L Alkaline Phosphatase 134 H (38-126) U/L Total Protein 6.0 L (6.3-8.2) g/dL Albumin 3.4 L (3.5-5.0) g/dL
--- NOTE | 2025-01-19 10:32 | XR ---
EXAMINATION TYPE: XR chest 1V portable DATE OF EXAM: 01/19/2025 10:25 AM COMPARISON: 01/19/2025 CLINICAL INDICATION: Female, 54 years old with history of s/p right thoracentesis, TECHNIQUE: XR chest 1V portable view(s) obtained. FINDINGS: The heart size is normal. The pulmonary vasculature is upper limits of normal. No suspicious infiltrates. No pneumothorax is evident post thoracentesis. IMPRESSION: 1. No pneumothorax postthoracentesis. [facility], , 01/19/2025 10:30 AM
[2025-01-19] MEDS: INSULIN GLARGINE (LANTUS) 100 UNIT/ML SYR SQ SCH (11:58)
[2025-01-19 12:22] LABS: Glucose,Whole Blood 235 mg/dL (70-110)
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
--- NOTE | 2025-01-19 15:20 | P.PN ---
Subjective Progress Note Date: 01/19/25 Hospital Course: Patient is a 54-year-old female with past medical history of hypothyroidism, hypertension, hyperlipidemia, insulin-dependent diabetes, CKD, and JEREMY who presented to the ED with chief complaint of chest pain which started Monday. She described it as centralized radiating to the left arm and onset was while she was at rest. She states the pain subsided and then came back yesterday around noon. Patient states she took a few nitro, but the pain did not subside. She also endorses some shortness of breath and orthopnea, requiring 2 pillows to be propped at night. She states she has had an NM in October but cannot undergo cardiac cath due to poor renal function. She states her father had a history of strokes and CAD with stent placements. Patient denies any prior stenting or being on blood thinners. Patient currently endorsing some chest discomfort, shortness of breath and nausea. She denies any fevers, chills, vomiting, diarrhea, lower extremity edema. Vitals on admission temperature 98 F, heart rate 90 bpm, respiratory rate 18, blood pressure 159/85, O2 saturation 98% on room air. EKG independently interpreted as sinus rhythm, ventricular rate 86 bpm QTc of 415 ms, T wave inversions in lateral leads. CXR shows no acute cardiopulmonary process. CT chest shows no acute process or significant atherosclerotic disease of aorta. Labs on admission show WBCs 8, hemoglobin 11.4, platelets 222. PT 10.9, INR 1, PTT 24.3. Sodium 137, potassium 4.7, chloride 112, bicarb 23, BUN 28, creatinine 1.21, glucose 157. Calcium 9, magnesium 1.8. Troponins x 3 negative. NT proBNP 2340. Lipase 114. Pertinent positives and negatives discussed above, a complete review of systems was preformed and all the other systems were negative. 01/16/25 Patient seen and examined at bedside in intensive care unit resting comfortably. Tolerating minimal clear liquids. Denies flatus. Patient appears sleepy but arousable. 01/17/25 Patient seen and examined at bedside in the intensive care unit today. Patient is tolerating minimal clear liquids. She still appears sleepy but arousable. 01/18/25 Patient seen and examined at bedside in the intensive care unit today. Patient is sitting in chair today. Patient is much more alert today and communicating. She is using her incentive spirometer and saturating well on room air. Chest tubes have been removed. She denies any acute complaints. . Patient seen and examined. Currently on room air. Blood sugars have been elevated, will start patient on Lantus 10 units twice a day. Vitals Signs Reviewed. Constitutional: Appears comfortable, cooperative, no acute distress, sitting up in bedside chair Respiratory: Lungs sounds diminished bilaterally. Respirations even, nonlabored. Currently saturating well on room air. Cardiovascular: S1, S2 present. Regular rate and rhythm, sinus rhythm on telemetry. Sternum stable. Palpable peripheral pulses bilaterally. No edema present. No calf pain or tenderness noted. Heart hugger, antiembolism stockings, SCDs present. Gastrointestinal: Abdomen soft, nontender, nondistended. Hypoactive bowel sounds present 4 quadrants. Genitourinary: Sellers present draining clear, yellow urine. Output overnight 40-70 mL per hour Integumentary: Skin is warm and dry with evidence of good perfusion. Anterior chest incision well approximated and covered with dry intact dressing. Neurologic: Cranial nerves II through XII intact Musculoskeletal: Able to move all extremities, strength equal bilaterally Psychiatric: Alert and oriented to person place and time Assessment and Plan: Patient is a 54-year-old female with past medical history of hypothyroidism, hypertension, hyperlipidemia, insulin-dependent diabetes, CKD, and JEREMY who p resented to the ED with chief complaint of chest pain. Patient underwent cardiac catheterization and then ultimately CABG. 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 at bedtime as needed F: Deferred to CT surgery and ICU E: Replete as needed A: As tolerated DVT prophylaxis: Per primary team The patient is admitted with an anticipated more than 2 midnight stay for CABG CODE STATUS: Full code Discussed with: Patient Anticipated discharge place: Pending clinical course Objective - Vital Signs Vital signs: Vital Signs Temp 98.6 F 01/19/25 12:00 Pulse 76 01/19/25 14:00 Resp 19 01/19/25 14:25 BP 144/72 01/19/25 14:00 Pulse Ox 98 01/19/25 14:00 FiO2 50 01/15/25 20:00 Intake & Output 01/18/25 01/19/25 01/19/25 18:59 06:59 18:59 Intake Total 1003 490 280 Output Total 500 600 500 Balance 503 -110 -220 Weight 91.4 kg Intake: IV 3 0.9 pressure bag 3 Intake, IV Titration 10 Amount Sodium Chloride 0.9% 1, 10 000 ml @ 30 mls/hr IV . Q24H [facility] Rx#:[id number] Oral 1000 480 280 Output: Urine 500 600 500 Other: Voiding Method Toilet Toilet Bedside Commode # Voids 1 1 1 # Bowel Movements 1 1 ABP, PAP, CO, CI - Last Documented Arterial Blood Pressure 157/63 Pulmonary Artery Pressure 38/13 Cardiac Output 5.9 Cardiac Index 3.3 - Labs CBC & Chem 7: 01/19/25 07:04 01/19/25 07:04 Labs: Abnormal Lab Results - Last 24 Hours (Table) 01/18/25 01/18/25 01/19/25 Range/Units 16:06 20:02 06:54 WBC (3.8-10.6) k/uL RBC (3.80-5.40) m/uL Hgb (11.4-16.0) gm/dL Hct (34.0-46.0) % Carbon Dioxide (22-30) mmol/L BUN (7-17) mg/dL Glucose (74-99) mg/dL POC Glucose (mg/dL) 213 H 334 H 206 H (70-110) mg/dL AST (14-36) U/L ALT (4-34) U/L Alkaline Phosphatase (38-126) U/L Total Protein (6.3-8.2) g/dL Albumin (3.5-5.0) g/dL 01/19/25 01/19/25 01/19/25 Range/Units 07:04 07:04 12:20 WBC 12.1 H (3.8-10.6) k/uL RBC 2.84 L (3.80-5.40) m/uL Hgb 8.6 L (11.4-16.0) gm/dL Hct 26.1 L (34.0-46.0) % Carbon Dioxide 20 L (22-30) mmol/L BUN 29 H (7-17) mg/dL Glucose 200 H (74-99) mg/dL POC Glucose (mg/dL) 235 H (70-110) mg/dL AST 47 H (14-36) U/L ALT 35 H (4-34) U/L Alkaline Phosphatase 134 H (38-126) U/L Total Protein 6.0 L (6.3-8.2) g/dL Albumin 3.4 L (3.5-5.0) g/dL
[2025-01-19 16:31] LABS: Glucose,Whole Blood 282 mg/dL (70-110)
[2025-01-19 20:05] LABS: Glucose,Whole Blood 271 mg/dL (70-110)
[2025-01-19 21:08] LABS: Glucose,Whole Blood 280 mg/dL (70-110)
[2025-01-19] MEDS: MELATONIN 5 MG TABLET PO SCH (21:16)
[2025-01-20 04:46] LABS: HCT 25.9 % (34.0-46.0); HGB 8.4 gm/dL (11.4-16.0); MCH 29.3 pg (25.0-35.0); MCHC 32.4 g/dL (31.0-37.0); MCV 90.6 fL (80.0-100.0); Mean Platelet Volume 8.2; Platelet Count 233 k/uL (150-450); RBC 2.85 m/uL (3.80-5.40); RDW 14.2 % (11.5-15.5); WBC 8.4 k/uL (3.8-10.6)
[2025-01-20 04:59] LABS: ALT 30 U/L (4-34); AST 31 U/L (14-36); African American GFR (CKD) 79 (>60 ml/min/1.73 sqM); Albumin 3.2 g/dL (3.5-5.0); Alkaline Phosphatase 128 U/L (38-126); Anion Gap 7 mmol/L; Blood Urea Nitrogen 22 mg/dL (7-17); Calcium 8.7 mg/dL (8.4-10.2); Carbon Dioxide 24 mmol/L (22-30); Chloride 106 mmol/L (98-107); Glucose 143 mg/dL (74-99); Magnesium 1.8 mg/dL (1.6-2.3); Non-African American GFR(CKD) 69 (>60 ml/min/1.73 sqM); Sodium 137 mmol/L (137-145); Total Bilirubin 0.7 mg/dL (0.2-1.3); Total Protein 5.6 g/dL (6.3-8.2)
[2025-01-20 05:58] LABS: Glucose,Whole Blood 162 mg/dL (70-110)
--- NOTE | 2025-01-20 06:17 | XR ---
EXAMINATION TYPE: XR chest 2V DATE OF EXAM: 01/20/2025 5:58 AM COMPARISON: Chest x-ray one day earlier and older studies. CLINICAL INDICATION: Female, 54 years old with history of Postoperative CABG, TECHNIQUE: Frontal and lateral views of the chest are obtained. FINDINGS: Overlying sternal wires and mediastinal clips along with left atrial appendage clip are all redemonstrated. Persistent low lung volumes and mild central vascular congestion along with small le ft pleural effusion. Cardiac silhouette size is stable and within normal limits. Osseous structures a re intact. Cholecystectomy clips noted on lateral view. IMPRESSION: Persistent low lung volumes and mild central vascular congestion with small left pleural effusion. No significant change from one day earlier. [facility], , 01/20/2025 6:15 AM
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
[2025-01-20] MEDS: LOSARTAN 50 MG TAB PO SCH (08:51)
[2025-01-20 10:42] VITALS: BMI 38.8
[2025-01-20 10:55] LABS: Glucose,Whole Blood 151 mg/dL (70-110)
[2025-01-20 16:30] LABS: Glucose,Whole Blood 195 mg/dL (70-110)
--- NOTE | 2025-01-20 16:32 | P.PN ---
Subjective Progress Note Date: 01/20/25 Hospital Course: Patient is a 54-year-old female with past medical history of hypothyroidism, hypertension, hyperlipidemia, insulin-dependent diabetes, CKD, and JEREMY who presented to the ED with chief complaint of chest pain which started Monday. She described it as centralized radiating to the left arm and onset was while she was at rest. She states the pain subsided and then came back yesterday around noon. Patient states she took a few nitro, but the pain did not subside. She also endorses some shortness of breath and orthopnea, requiring 2 pillows to be propped at night. She states she has had an CT in October but cannot undergo cardiac cath due to poor renal function. She states her father had a history of strokes and CAD with stent placements. Patient denies any prior stenting or being on blood thinners. Patient currently endorsing some chest discomfort, shortness of breath and nausea. She denies any fevers, chills, vomiting, diarrhea, lower extremity edema. Vitals on admission temperature 98 F, heart rate 90 bpm, respiratory rate 18, blood pressure 159/85, O2 saturation 98% on room air. EKG independently interpreted as sinus rhythm, ventricular rate 86 bpm QTc of 415 ms, T wave inversions in lateral leads. CXR shows no acute cardiopulmonary process. CT chest shows no acute process or significant atherosclerotic disease of aorta. Labs on admission show WBCs 8, hemoglobin 11.4, platelets 222. PT 10.9, INR 1, PTT 24.3. Sodium 137, potassium 4.7, chloride 112, bicarb 23, BUN 28, creatinine 1.21, glucose 157. Calcium 9, magnesium 1.8. Troponins x 3 negative. NT proBNP 2340. Lipase 114. Pertinent positives and negatives discussed above, a complete review of systems was preformed and all the other systems were negative. 01/16/25 Patient seen and examined at bedside in intensive care unit resting comfortably. Tolerating minimal clear liquids. Denies flatus. Patient appears sleepy but arousable. 01/17/25 Patient seen and examined at bedside in the intensive care unit today. Patient is tolerating minimal clear liquids. She still appears sleepy but arousable. 01/18/25 Patient seen and examined at bedside in the intensive care unit today. Patient is sitting in chair today. Patient is much more alert today and communicating. She is using her incentive spirometer and saturating well on room air. Chest tubes have been removed. She denies any acute complaints. 01/19/2025 Patient seen and examined at bedside in the intensive care unit today. Patient is sitting in the chair comfortably. Patient is extremely pleasant, alert and communicating. Patient is diet well. She is passing flatus and having bowel movements. She is using her incentive spirometer saturating well on room air. Patient denies any acute complaints at this time. 01/20/25 Patient seen and examined at bedside. Patient is sitting in the chair comfortably. Patient is extremely pleasant, alert and communicating. Patient is tolerating diet well. She is passing flatus and having bowel movements. She is using her incentive spirometer, saturating well on room air. Patient denies any acute complaints at this time. She is looking forward to being discharged within the next 24 to 48 hours. Vitals Signs Reviewed. Constitutional: Appears comfortable, cooperative, no acute distress, sitting up in bedside chair Respiratory: Lungs sounds clear throughout, diminished to the bases bila terally. Respirations even, nonlabored. Currently saturating well on room air. Cardiovascular: S1, S2 present. Regular rate and rhythm, sinus rhythm on telemetry. Sternum stable. Palpable peripheral pulses bilaterally. No edema present. No calf pain or tenderness noted. Heart hugger, antiembolism stockings, SCDs present. Gastrointestinal: Abdomen soft, nontender, nondistended. Active bowel sounds present 4 quadrants. Genitourinary: Sellers present draining clear, yellow urine. Urine output 500 mL in the last 8 hours Integumentary: Skin is warm and dry with no evidence of clubbing or cyanosis. Midline sternal incision clean dry and well approximated, covered with dry intact dressing. Right lower extremity EVH sites well approximated without redness or drainage. Neurologic: Cranial nerves II through XII intact. No focal deficits Musculoskeletal: Able to move all extremities, strength equal bilaterally, generalized weakness Psychiatric: Alert and oriented to person place and time. Appropriate affect, and judgment and insight. Invasive lines: Atrial epicardial pacemaker wires present, and grounded. Data Reviewed Today: Patient Labs: WBCs 8.4, hemoglobin 8.4, platelets 233. Sodium 137, potassium 4, chloride 106, bicarb 24, BUN 22, creatinine 0.94, glucose 143. Calcium 8.7. AST 31, ALT 38, ALP 128. Imaging: Chest x-ray shows persistent low lung volumes and mild central vascular congestion with small left pleural effusion, no significant change from last Assessment and Plan: Patient is a 54-year-old female with past medical history of hypothyroidism, hypertension, hyperlipidemia, insulin-dependent diabetes, CKD, and JEREMY who presented to the ED with chief complaint of chest pain. Patient underwent cardiac catheterization and then ultimately CABG. Chronic kidney disease stage IIIa, at baseline Continue to monitor renal function Hyperglycemia in insulin-dependent diabetic Blood glucose monitoring per [facility] protocol Lantus 10 units twice daily Insulin sliding scale Hypoglycemia precautions Unstable angina Cardiac cath showed severe triple-vessel disease status post CABG POD #[address] surgery and ICU team Acute blood loss anemia secondary to above, resolved Patient was transfused total of 4 units Continue to monitor CBC Transfuse if hemoglobin less than 7 Chronic: Hypertension Continue lisinopril 10 mg daily Continue metoprolol 25 mg twice daily Hypothyroidism Continue Synthroid 175 mcg daily Hyperlipidemia Continue Lipitor 40 mg daily Anxiety Continue Lexapro 10 mg daily Xanax as needed Insomnia Continue hydroxyzine 25 mg p.o. at bedtime as needed F: Deferred to CT surgery and ICU E: Replete as needed N: Heart healthy/consistent carbohydrate A: As tolerated DVT prophylaxis: Per primary team The patient is admitted with an anticipated more than 2 midnight stay for CABG CODE STATUS: Full code Discussed with: Patient Anticipated discharge place: Pending clinical course Objective - Vital Signs Vital signs: Vital Signs Temp 98.6 F 01/20/25 04:00 Pulse 78 01/20/25 08:37 Resp 17 01/20/25 04:00 BP 152/81 01/20/25 04:00 Pulse Ox 97 01/20/25 08:39 FiO2 50 01/15/25 20:00 Intake & Output 01/19/25 01/20/25 01/20/25 18:59 06:59 18:59 Intake Total 280 Output Total 500 800 Balance -220 -800 Weight 90.2 kg Intake: Oral 280 Output: Urine 500 800 Other: Voiding Method Bedside Commode Toilet # Voids 1 # Bowel Movements 1 ABP, PAP, CO, CI - Last Documented Arterial Blood Pressure 157/63 Pulmonary Artery Pressure 38/13 Cardiac Output 5.9 Cardiac Index 3.3 - Labs CBC & Chem 7: 01/20/25 04:11 01/20/25 04:11 Labs: Abnormal Lab Results - Last 24 Hours (Table) 01/19/25 01/19/25 01/19/25 Range/Units 12:20 16:29 20:03 RBC (3.80-5.40) m/uL Hgb (11.4-16.0) gm/dL Hct (34.0-46.0) % BUN (7-17) mg/dL Glucose (74-99) mg/dL POC Glucose (mg/dL) 235 H 282 H 271 H (70-110) mg/dL Alkaline Phosphatase (38-126) U/L Total Protein (6.3-8.2) g/dL Albumin (3.5-5.0) g/dL 01/19/25 01/20/25 01/20/25 Range/Units 21:07 04:11 04:11 RBC 2.85 L (3.80-5.40) m/uL Hgb 8.4 L (11.4-16.0) gm/dL Hct 25.9 L (34.0-46.0) % BUN 22 H (7-17) mg/dL Glucose 143 H (74-99) mg/dL POC Glucose (mg/dL) 280 H (70-110) mg/dL Alkaline Phosphatase 128 H (38-126) U/L Total Protein 5.6 L (6.3-8.2) g/dL Albumin 3.2 L (3.5-5.0) g/dL 01/20/25 Range/Units 05:57 RBC (3.80-5.40) m/uL Hgb (11.4-16.0) gm/dL Hct (34.0-46.0) % BUN (7-17) mg/dL Glucose (74-99) mg/dL POC Glucose (mg/dL) 162 H (70-110) mg/dL Alkaline Phosphatase (38-126) U/L Total Protein (6.3-8.2) g/dL Albumin (3.5-5.0) g/dL
--- NOTE | 2025-01-20 17:33 | P.PN ---
Subjective Progress Note Date: 01/20/25 Principal diagnosis: POD #5 triple-vessel coronary artery bypass grafting using the in situ left intramammary artery to the left anterior descending artery, reverse saphenous vein graft from the aorta to the obtuse marginal artery, reverse saphenous vein graft from the aorta to the posterior descending artery, exclusion of the left atrial appendage using a 35mm AtriClip, endoscopic harvesting of the left radial artery that was not even used at the end in view of the small caliber, endoscopic harvesting of the right greater saphenous vein, intraoperative graft flow measurements using the Medistim system, intraoperative transesophageal echocardiogram and epiaortic scanning 01/15/2025, the patient is seeing in the intensive care unit postop. The patient underwent three-vessel bypass surgery with POLANCO to LAD and SVG to PDA and OM1. The patient is currently placed on mechanical ventilator. She is sedated and she is calm and comfortable on propofol. He is on assist-control mode of mechanical ventilator at the rate of 12, tidal volume of 350, FiO2 50% with a PEEP of 10. Blood gases showed a pH of 7.27 with a pCO2 of 49 and pO2 of 391. Chest x-ray shows no acute abnormalities. Multiple lines and catheters are present including a left pleural chest tube, 2 mediastinal chest tubes. ET tube is around 3 cm above the alison. [place]-Cresencio catheter is labeled location. No significant abnormalities noted. Hemodynamically, the patient's cardiac output is 3.6 with an index of 2.0. The PA pressures are 38/22. The patient is on a nitroglycerin drip. The patient is a paced at a rate of 80. Output from the chest tubes are minimal and the patient is to mediastinal chest tube and a single left pleural chest tube. The hemoglobin is at 6.8 and the patient is go ing to receive a unit of packed RBC. Otherwise, electrolytes are all within normal limits. BUN 16 with a creatinine of 0.9. The white cell count is at 6.8. On 01/16/2025, the patient is being seen for a follow-up. The patient is postop day #1 following coronary bypass surgery and the patient underwent a three- vessel bypass. The patient was extubated without any major difficulties and the patient is currently on 40 Suboxone by nasal cannula. This morning, the patient is off the nitroglycerin drip. Cardiac output is 4.7 with an index of 2.6. PA pressures of 42/60. The patient is in normal sinus rhythm. The pacemaker has been discontinued. He is on insulin drip at 3 units an hour. Hemoglobin is dropped down to 5.1 and the patient will be given an additional 2 units of packed RBCs. Hemoglobin is due for be further monitored. Otherwise, the rest of the blood work shows a white cell count of 5.6 with a hemoglobin 5.1 and platelet count of 95. BUN is 18 with a creatinine of 1.2. Sodium is at 140. Noted the patient has 2 mediastinal chest tubes in the left pleural chest tube. Output from the chest was in the minimal in the order of less than 400 cc from both chest tubes. The chest x-ray shows no acute abnormalities. There are some postsurgical changes with some atelectatic change in the left perihilar area and cardiomegaly. Catheters are still in place. The patient is awake and alert and communicating. Denies having any specific complaints. She remains on aspirin. She remains on Plavix. She was also started on metoprolol 12.5 mg p.o. twice a day. She is on Lipitor 40 mg p.o. daily. On 01/17/2025, the patient is being seen for a follow-up. The patient is postop day #2. The patient underwent three-vessel bypass surgery. Remains extubated and she is calm and comfortable and she is using incentive spirometer. Hemodynamically stable and the cardiac rhythm is sinus. No pacing has been done over the past 24 hours. No pressors. Output from the mediastinal and left pleural chest tubes are minimal and the chest tubes are to be removed today. [place]Cresencio catheter is also a been discontinued. The patient has no specific complaints. No issues with pain. The white cell count is 14.8 with a hemoglobin 8.1 and a platelet count of 114. Noted the patient received a total of 4 units of packed RBC postop. BUN is 24 with a creatinine 1.5 and sodium levels at 138. Noted the patient has chronic kidney disease. Potassium level is at 4.8. The patient remains on aspirin. The patient remains on Plavix. The patient remains on metoprolol 25 mg twice a day. The patient is off insulin drip. Rest of the medications remain essentially unchanged. On 01/18/2025, the patient is being seen for a follow-up. She is calm and comfortable awake and alert and communicating. Using incentive spirometer. She is on room air oxygen with a pulse ox of 94%. Follow-up chest x-ray from today shows improvement in left lower lobe atelectasis and the patient has mild increase in perihilar lung markings. The patient is in sinus rhythm. The patient remains on a combination of aspirin and Plavix. The patient remains on metoprolol 50 mg p.o. twice daily. Chest tubes have been removed. She is ambulating. Using incentive spirometer. Denies having any specific complaints. White cell count of 12.9, hemoglobin 7.7 with a platelet count of 126. BUN 31 with a creatinine of 1.4 and sodium of 139. Blood sugar control is adequate and the patient's blood sugar this morning is at 124. The patient is on sliding scale insulin coverage. The patient is on Synthroid. On 01/19/2025, the patient is doing extremely well. Calm and comfortable. No respiratory distress. Using incentive spirometer. Pulling approximately thousand on her incentive spirometer. No respiratory difficulties. No chest pain. Surgical wound site is dry clean and intact. She is on room air oxygen and the patient is currently carrying a pulse ox of 94%. She is in normal sinus rhythm. The atrial epicardial pacemaker wires are still in place and they are grounded. The patient is ambulating. The white cell count is at 12 with a hemoglobin 8.6 and a platelet count of 210. BUN is 29 with a creatinine of 1.03. Sodium is at 137. Potassium level is at 4.7. She is on Lantus insulin 10 units and sliding scale coverage and the blood sugar control is adequate. Chest x-ray shows postsurgical changes otherwise, no acute airspace disease. No consolidations. No pneumothorax. Patient was seen today on 01/20/2025, remains in the ICU, does not seem to be in any distress. Patient is on room air, doing well with incentive spirometry achieving 750 mL. Patient is presently in the ICU as an overflow, her chest x- ray findings are reassuring, her labs are reassuring and the patient will likely transfer to [facility]. today. Objective - Vital Signs Vital signs: Vital Signs Temp 98.9 F 01/20/25 08:00 Pulse 76 01/20/25 16:15 Resp 16 01/20/25 15:17 BP 114/58 01/20/25 15:17 Pulse Ox 97 01/20/25 15:17 FiO2 50 01/15/25 20:00 Intake & Output 01/19/25 01/20/25 01/20/25 18:59 06:59 18:59 Intake Total 280 480 Output Total 500 800 452 Balance -220 -800 28 Weight 90.2 kg 90.2 kg Intake: Oral 280 480 Output: Urine 500 800 450 Stool 2 Other: Voiding Method Bedside Commode Toilet Toilet # Voids 1 1 # Bowel Movements 1 2 ABP, PAP, CO, CI - Last Documented Arterial Blood Pressure 157/63 Pulmonary Artery Pressure 38/13 Cardiac Output 5.9 Cardiac Index 3.3 - Exam CONSTITUTIONAL: Revealed 54-year-old female in no distress HEENT: Neck is supple, no JVD, no lymphadenopathy. RESPIRATORY: Clear bilaterally no crackles rhonchi or wheezes CARDIOVASCULAR: Regular rhythm and rate. S1 and S2 present, negative for S3, gallop or murmur. Sternum is stable. GASTROINTESTINAL: Abdomen soft, nontender, nondistended. Active bowel sounds present 4 quadrants. Tolerating clear liquid diet. Passing flatus. No guarding or rigidity. Bowel movement yesterday January 19, 2025. INTEGUMENTARY: No rashes. Multiple tattoos noted all over NEUROLOGIC: Alert oriented x 3 no gross focal deficit MUSKULOSKELETAL: No deformities and no limitation range of motion Psychiatric: Normal mood affect and no mental status examination - Labs CBC & Chem 7: 01/20/25 04:11 01/20/25 04:11 Labs: Abnormal Lab Results - Last 24 Hours (Table) 01/19/25 01/19/25 01/20/25 Range/Units 20:03 21:07 04:11 RBC 2.85 L (3.80-5.40) m/uL Hgb 8.4 L (11.4-16.0) gm/dL Hct 25.9 L (34.0-46.0) % BUN (7-17) mg/dL Glucose (74-99) mg/dL POC Glucose (mg/dL) 271 H 280 H (70-110) mg/dL Alkaline Phosphatase (38-126) U/L Total Protein (6.3-8.2) g/dL Albumin (3.5-5.0) g/dL 01/20/25 01/20/25 01/20/25 Range/Units 04:11 05:57 10:54 RBC (3.80-5.40) m/uL Hgb (11.4-16.0) gm/dL Hct (34.0-46.0) % BUN 22 H (7-17) mg/dL Glucose 143 H (74-99) mg/dL POC Glucose (mg/dL) 162 H 151 H (70-110) mg/dL Alkaline Phosphatase 128 H (38-126) U/L Total Protein 5.6 L (6.3-8.2) g/dL Albumin 3.2 L (3.5-5.0) g/dL 01/20/25 Range/Units 16:27 RBC (3.80-5.40) m/uL Hgb (11.4-16.0) gm/dL Hct (34.0-46.0) % BUN (7-17) mg/dL Glucose (74-99) mg/dL POC Glucose (mg/dL) 195 H (70-110) mg/dL Alkaline Phosphatase (38-126) U/L Total Protein (6.3-8.2) g/dL Albumin (3.5-5.0) g/dL Assessment and Plan Assessment: Impression: Triple-vessel coronary artery disease, unstable angina, status post three-vessel CABG History of myocardial infarction Hypertension Hyperlipidemia, cholesterol 96, LDL 18, triglycerides 204 Insulin-dependent diabetes Hypothyroid Obstructive sleep apnea without home CPAP use Chronic kidney disease stage III Previous tobacco dependence Recommendation: Continue present supportive care measures Continue incentive spirometry Continue ambulation Continue maximal medical therapy aspirin Plavix and statin and beta-blockers Transfer patient to medical floor/3 S. Continue GI DVT prophylaxis Will continue to follow Time with Patient: Less than 30
[2025-01-20 20:21] LABS: Glucose,Whole Blood 255 mg/dL (70-110)
[2025-01-21 03:54] VITALS: TEMP 98.1
[2025-01-21 06:11] LABS: Glucose,Whole Blood 115 mg/dL (70-110)
--- NOTE | 2025-01-21 06:51 | XR ---
EXAMINATION TYPE: XR chest 2V DATE OF EXAM: 01/21/2025 6:46 AM COMPARISON: Chest x-ray one day earlier CLINICAL INDICATION: Female, 54 years old with history of Postop CABG, TECHNIQUE: Frontal and lateral views of the chest are obtained. FINDINGS: Overlying sternal wires and mediastinal clips along with left atrial appendage clip are all redemonstrated. Persistent low lung volumes and mild central vascular congestion along with small le ft pleural effusion. Cardiac silhouette size is stable and upper limits of normal. Osseous structures are intact. Cholecystectomy clips are redemonstrated on lateral view. IMPRESSION: Persistent low lung volumes and mild central vascular congestion with small left pleural effusion. No significant change from one day earlier. [facility], , 01/21/2025 6:49 AM
[2025-01-21 07:00] LABS: HCT 27.3 % (34.0-46.0); HGB 8.4 gm/dL (11.4-16.0); Hypochromasia Slight; MCH 28.4 pg (25.0-35.0); MCHC 30.7 g/dL (31.0-37.0); MCV 92.3 fL (80.0-100.0); Mean Platelet Volume 8.3; Platelet Count 273 k/uL (150-450); RBC 2.96 m/uL (3.80-5.40); RDW 14.6 % (11.5-15.5); WBC 8.6 k/uL (3.8-10.6)
[2025-01-21 07:28] LABS: African American GFR (CKD) 79 (>60 ml/min/1.73 sqM); Anion Gap 9 mmol/L; Blood Urea Nitrogen 17 mg/dL (7-17); Calcium 8.6 mg/dL (8.4-10.2); Carbon Dioxide 25 mmol/L (22-30); Chloride 103 mmol/L (98-107); Glucose 107 mg/dL (74-99); Magnesium 1.8 mg/dL (1.6-2.3); Non-African American GFR(CKD) 69 (>60 ml/min/1.73 sqM); Sodium 137 mmol/L (137-145)
[2025-01-21 08:59] VITALS: RESP 17
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
[2025-01-21] MEDS: LOSARTAN 50 MG TAB PO STA (11:05)
[2025-01-21 11:06] VITALS: BP 161/79
[2025-01-21] MEDS: guaiFENesin 600 MG TABLET.ER PO SCH (11:14)
[2025-01-21 11:29] LABS: Glucose,Whole Blood 142 mg/dL (70-110)
[2025-01-21 11:45] VITALS: PULSE 76
--- NOTE | 2025-01-21 13:36 | P.PN ---
Subjective Progress Note Date: 01/21/25 PROGRESS NOTE The patient is a 54-year-old female who presented with chest discomfort and unstable angina, underwent coronary angiography and was found to have severe triple-vessel disease. She underwent CABG yesterday with POLANCO to the LAD SVG to the OM and to the PDA with closure of her left atrial appendage. She is extubated, in sinus mechanism, hemodynamically stable on no pressors. She has a drop in the hemoglobin and is scheduled to undergo transfusion. She is complaining of chest wall tenderness and respirophasic pain. She denies any nausea or vomiting. She had no evidence of atrial fibrillation or ventricular tachyarrhythmia. January 17: The patient continues to be in sinus mechanism, she is feeling better overall but complaining of musculoskeletal and incisional chest pain. She is trying to use her incentive spirometry. She received transfusion yesterday. She has no ventricular ectopic activity or episode of atrial fibrillation. She is on no vasopressors. January 18: The patient continues to have incisional discomfort but overall better. She feels tired. She has no nausea. She continues to be in sinus mechanism. She walked yesterday. She has no dizziness or palpitations. She is using her incentive spirometry. January 19: She is looking and feeling better today, ambulated. Continues to be in sinus mechanism. She has been using her incentive spirometry. She denies any dizziness or palpitations. Her urinary output has been good and she is on no vasopressors. Started on losartan today January 21: Patient seen and examined. Patient has been transferred out of the intensive care unit and is seen today on the cardiac stepdown unit. Blood pressure 163 /77, heart rate in the 80s and 90s, pulse ox 97% on room air. Patient remains in a sinus rhythm. She is reaching 1250 mL on incentive spirometry. Repeat blood work reveals hemoglobin 8.4. Electrolytes and renal function are within normal limits. Chest x-ray reveals persistent low lung volumes and mild central vascular congestion with small left pleural effusion. No change from earlier. Yesterday, losartan was increased to 50 mg daily by CTS. Patient denies chest pain or pressure, no shortness of breath. She is complaining of nonproductive cough. She states she is going home today. Medications: Aspirin, Lipitor 40 mg daily, Plavix 75 mg daily, metoprolol tartrate 50 mg twice a day, atorvastatin 40 mg daily, losartan 50 mg daily PHYSICAL EXAMINATION: LUNGS: Clear to auscultation HEART: Regular rate and rhythm, S1, S2. No S3. Systolic ejection murmur ABDOMEN: Soft, nontender, no organomegaly EXTREMETIES: + right LE edema IMPRESSION: 1. Status post CABG with 3 bypasses 2. Anemia postop with no clear source of bleeding, posttransfusion, stable 3. History of hyperlipidemia 4. Chronic kidney disease, improving 5. Hypertension PLAN: 1. Increase physical activity, use of incentive spirometry 2. Increase losartan to 100 mg daily 3. Patient is cleared from cardiology perspective for discharge. Nurse practitioner note has been reviewed, I agree with documented findings and plan of care. Patient was seen and examined. Objective - Vital Signs Vital signs: Vital Signs Temp 98.1 F 01/21/25 08:55 Pulse 98 01/21/25 08:55 Resp 17 01/21/25 08:55 BP 163/77 01/21/25 08:55 Pulse Ox 97 01/21/25 08:55 FiO2 50 01/15/25 20:00 Intake & Output 01/20/25 01/21/25 01/21/25 18:59 06:59 18:59 Intake Total 720 20 Output Total 552 900 Balance 168 -880 Weight 90.2 kg 89.6 kg Intake: IV 20 Invasive Line 7 20 Oral 720 Output: Urine 550 900 Stool 2 Other: Voiding Method Toilet Toilet # Voids 1 # Bowel Movements 2 ABP, PAP, CO, CI - Last Documented Arterial Blood Pressure 157/63 Pulmonary Artery Pressure 38/13 Cardiac Output 5.9 Cardiac Index 3.3 - Labs CBC & Chem 7: 01/21/25 05:17 01/21/25 05:17 Labs: Abnormal Lab Results - Last 24 Hours (Table) 01/20/25 01/20/25 01/20/25 Range/Units 10:54 16:27 20:19 RBC (3.80-5.40) m/uL Hgb (11.4-16.0) gm/dL Hct (34.0-46.0) % MCHC (31.0-37.0) g/dL Glucose (74-99) mg/dL POC Glucose (mg/dL) 151 H 195 H 255 H (70-110) mg/dL 01/21/25 01/21/25 01/21/25 Range/Units 05:17 05:17 06:09 RBC 2.96 L (3.80-5.40) m/uL Hgb 8.4 L (11.4-16.0) gm/dL Hct 27.3 L (34.0-46.0) % MCHC 30.7 L (31.0-37.0) g/dL Glucose 107 H (74-99) mg/dL POC Glucose (mg/dL) 115 H (70-110) mg/dL
--- NOTE | 2025-01-21 14:17 | P.PN ---
Subjective Progress Note Date: 01/21/25 Principal diagnosis: POD #6 triple-vessel coronary artery bypass grafting using the in situ left intramammary artery to the left anterior descending artery, reverse saphenous vein graft from the aorta to the obtuse marginal artery, reverse saphenous vein graft from the aorta to the posterior descending artery, exclusion of the left atrial appendage using a 35mm AtriClip, endoscopic harvesting of the left radial artery that was not even used at the end in view of the small caliber, endoscopic harvesting of the right greater saphenous vein, intraoperative graft flow measurements using the Medistim system, intraoperative transesophageal echocardiogram and epiaortic scanning 01/15/2025, the patient is seeing in the intensive care unit postop. The patient underwent three-vessel bypass surgery with POLANCO to LAD and SVG to PDA and OM1. The patient is currently placed on mechanical ventilator. She is sedated and she is calm and comfortable on propofol. He is on assist-control mode of mechanical ventilator at the rate of 12, tidal volume of 350, FiO2 50% with a PEEP of 10. Blood gases showed a pH of 7.27 with a pCO2 of 49 and pO2 of 391. Chest x-ray shows no acute abnormalities. Multiple lines and catheters are present including a left pleural chest tube, 2 mediastinal chest tubes. ET tube is around 3 cm above the alison. [place]-Cresencio catheter is labeled location. No significant abnormalities noted. Hemodynamically, the patient's cardiac output is 3.6 with an index of 2.0. The PA pressures are 38/22. The patient is on a nitroglycerin drip. The patient is a paced at a rate of 80. Output from the chest tubes are minimal and the patient is to mediastinal chest tube and a single left pleural chest tube. The hemoglobin is at 6.8 and the patient is go ing to receive a unit of packed RBC. Otherwise, electrolytes are all within normal limits. BUN 16 with a creatinine of 0.9. The white cell count is at 6.8. On 01/16/2025, the patient is being seen for a follow-up. The patient is postop day #1 following coronary bypass surgery and the patient underwent a three- vessel bypass. The patient was extubated without any major difficulties and the patient is currently on 40 Suboxone by nasal cannula. This morning, the patient is off the nitroglycerin drip. Cardiac output is 4.7 with an index of 2.6. PA pressures of 42/60. The patient is in normal sinus rhythm. The pacemaker has been discontinued. He is on insulin drip at 3 units an hour. Hemoglobin is dropped down to 5.1 and the patient will be given an additional 2 units of packed RBCs. Hemoglobin is due for be further monitored. Otherwise, the rest of the blood work shows a white cell count of 5.6 with a hemoglobin 5.1 and platelet count of 95. BUN is 18 with a creatinine of 1.2. Sodium is at 140. Noted the patient has 2 mediastinal chest tubes in the left pleural chest tube. Output from the chest was in the minimal in the order of less than 400 cc from both chest tubes. The chest x-ray shows no acute abnormalities. There are some postsurgical changes with some atelectatic change in the left perihilar area and cardiomegaly. Catheters are still in place. The patient is awake and alert and communicating. Denies having any specific complaints. She remains on aspirin. She remains on Plavix. She was also started on metoprolol 12.5 mg p.o. twice a day. She is on Lipitor 40 mg p.o. daily. On 01/17/2025, the patient is being seen for a follow-up. The patient is postop day #2. The patient underwent three-vessel bypass surgery. Remains extubated and she is calm and comfortable and she is using incentive spirometer. Hemodynamically stable and the cardiac rhythm is sinus. No pacing has been done over the past 24 hours. No pressors. Output from the mediastinal and left pleural chest tubes are minimal and the chest tubes are to be removed today. [place]-Cresencio catheter is also a been discontinued. The patient has no specific complaints. No issues with pain. The white cell count is 14.8 with a hemoglobin 8.1 and a platelet count of 114. Noted the patient received a total of 4 units of packed RBC postop. BUN is 24 with a creatinine 1.5 and sodium levels at 138. Noted the patient has chronic kidney disease. Potassium level is at 4.8. The patient remains on aspirin. The patient remains on Plavix. The patient remains on metoprolol 25 mg twice a day. The patient is off insulin drip. Rest of the medications remain essentially unchanged. On 01/18/2025, the patient is being seen for a follow-up. She is calm and comfortable awake and alert and communicating. Using incentive spirometer. She is on room air oxygen with a pulse ox of 94%. Follow-up chest x-ray from today shows improvement in left lower lobe atelectasis and the patient has mild increase in perihilar lung markings. The patient is in sinus rhythm. The patient remains on a combination of aspirin and Plavix. The patient remains on metoprolol 50 mg p.o. twice daily. Chest tubes have been removed. She is ambulating. Using incentive spirometer. Denies having any specific complaints. White cell count of 12.9, hemoglobin 7.7 with a platelet count of 126. BUN 31 with a creatinine of 1.4 and sodium of 139. Blood sugar control is adequate and the patient's blood sugar this morning is at 124. The patient is on sliding scale insulin coverage. The patient is on Synthroid. On 01/19/2025, the patient is doing extremely well. Calm and comfortable. No respiratory distress. Using incentive spirometer. Pulling approximately thousand on her incentive spirometer. No respiratory difficulties. No chest pain. Surgical wound site is dry clean and intact. She is on room air oxygen and the patient is currently carrying a pulse ox of 94%. She is in normal sinus rhythm. The atrial epicardial pacemaker wires are still in place and they are grounded. The patient is ambulating. The white cell count is at 12 with a hemoglobin 8.6 and a platelet count of 210. BUN is 29 with a creatinine of 1.03. Sodium is at 137. Potassium level is at 4.7. She is on Lantus insulin 10 units and sliding scale coverage and the blood sugar control is adequate. Chest x-ray shows postsurgical changes otherwise, no acute airspace disease. No consolidations. No pneumothorax. Patient was seen today on 01/20/2025, remains in the ICU, does not seem to be in any distress. Patient is on room air, doing well with incentive spirometry achieving 750 mL. Patient is presently in the ICU as an overflow, her chest x- ray findings are reassuring, her labs are reassuring and the patient will likely transfer to [facility]. today. Patient was seen today on 01/21/2025, patient is doing great, ambulating, she is on room air, does not seem to be in any distress. Patient had her atrial epicardial pacemaker wires removed this morning, and I believe the patient will likely be discharged home today. Chest x-ray is basically unremarkable. No evidence of pulmonary edema no evidence of pneumonia. WBC count is 8.6 hemoglobin 8.4 electrolytes are normal renal profile is normal Objective - Vital Signs Vital signs: Vital Signs Temp 98.1 F 01/21/25 08:55 Pulse 76 01/21/25 11:45 Resp 17 01/21/25 11:04 BP 161/79 01/21/25 11:04 Pulse Ox 99 01/21/25 11:04 FiO2 50 01/15/25 20:00 Intake & Output 01/20/25 01/21/25 01/21/25 18:59 06:59 18:59 Intake Total 720 20 240 Output Total 552 900 400 Balance 168 -880 -160 Weight 90.2 kg 89.6 kg Intake: IV 20 Invasive Line 7 20 Oral 720 240 Output: Urine 550 900 400 Stool 2 Other: Voiding Method Toilet Toilet Toilet # Voids 1 # Bowel Movements 2 ABP, PAP, CO, CI - Last Documented Arterial Blood Pressure 157/63 Pulmonary Artery Pressure 38/13 Cardiac Output 5.9 Cardiac Index 3.3 - Exam CONSTITUTIONAL: Revealed 54-year-old female in no distress, on room air HEENT: Neck is supple, no JVD, no lymphadenopathy. RESPIRATORY: Clear bilaterally no crackles rhonchi or wheezes CARDIOVASCULAR: Regular rhythm and rate. S1 and S2 present, negative for S3, gallop or murmur. Sternum is stable. GASTROINTESTINAL: Abdomen soft, nontender, nondistended. Active bowel sounds present 4 quadrants. INTEGUMENTARY: No rashes. Multiple tattoos noted all over NEUROLOGIC: Alert oriented x 3 no gross focal deficit MUSKULOSKELETAL: No deformities and no limitation range of motion Psychiatric: Normal mood affect and no mental status examination - Labs CBC & Chem 7: 01/21/25 05:17 01/21/25 05:17 Labs: Abnormal Lab Results - Last 24 Hours (Table) 01/20/25 01/20/25 01/21/25 Range/Units 16:27 20:19 05:17 RBC 2.96 L (3.80-5.40) m/uL Hgb 8.4 L (11.4-16.0) gm/dL Hct 27.3 L (34.0-46.0) % MCHC 30.7 L (31.0-37.0) g/dL Glucose (74-99) mg/dL POC Glucose (mg/dL) 195 H 255 H (70-110) mg/dL 01/21/25 01/21/25 01/21/25 Range/Units 05:17 06:09 11:27 RBC (3.80-5.40) m/uL Hgb (11.4-16.0) gm/dL Hct (34.0-46.0) % MCHC (31.0-37.0) g/dL Glucose 107 H (74-99) mg/dL POC Glucose (mg/dL) 115 H 142 H (70-110) mg/dL Assessment and Plan Assessment: Impression: Triple-vessel coronary artery disease, unstable angina, status post three-vessel CABG History of myocardial infarction Hypertension Hyperlipidemia, cholesterol 96, LDL 18, triglycerides 204 Insulin-dependent diabetes Hypothyroid Obstructive sleep apnea without home CPAP use Chronic kidney disease stage III Previous tobacco dependence Recommendation: Agree with discharge planning today if cleared by cardiology and cardiothoracic surgery Continue incentive spirometry, even at home Continue aspirin Plavix and statin and beta-blockers Follow-up on outpatient basis. Time with Patient: Less than 30
--- NOTE | 2025-01-21 14:25 | P.PN ---
Subjective Progress Note Date: 01/21/25 Patient is a 54-year-old female with past medical history of hypothyroidism, hypertension, hyperlipidemia, insulin-dependent diabetes, CKD, and JEREMY who presented to the ED with chief complaint of chest pain which started Monday. She described it as centralized radiating to the left arm and onset was while she was at rest. She states the pain subsided and then came back yesterday around noon. Patient states she took a few nitro, but the pain did not subside. She also endorses some shortness of breath and orthopnea, requiring 2 pillows to be propped at night. She states she has had an AR in October but cannot undergo cardiac cath due to poor renal function. She states her father had a history of strokes and CAD with stent placements. Patient denies any prior stenting or being on blood thinners. Patient currently endorsing some chest discomfort, shortness of breath and nausea. She denies any fevers, chills, vomiting, diarrhea, lower extremity edema. Vitals on admission temperature 98 F, heart rate 90 bpm, respiratory rate 18, blood pressure 159/85, O2 saturation 98% on room air. EKG independently interpreted as sinus rhythm, ventricular rate 86 bpm QTc of 415 ms, T wave inversions in lateral leads. CXR shows no acute cardiopulmonary process. CT chest shows no acute process or significant atherosclerotic disease of aorta. Labs on admission show WBCs 8, hemoglobin 11.4, platelets 222. PT 10.9, INR 1, PTT 24.3. Sodium 137, potassium 4.7, chloride 112, bicarb 23, BUN 28, creatinine 1.21, glucose 157. Calcium 9, magnesium 1.8. Troponins x 3 negative. NT proBNP 2340. Lipase 114. Pertinent positives and negatives discussed above, a complete review of systems was preformed and all the other systems were negative. 01/16/25 Patient seen and examined at bedside in intensive care unit resting comfortably. Tolerating minimal clear liquids. Denies flatus. Patient appears sleepy but arousable. 01/17/25 Patient seen and examined at bedside in the intensive care unit today. Patient is tolerating minimal clear liquids. She still appears sleepy but arousable. 01/18/25 Patient seen and examined at bedside in the intensive care unit today. Patient is sitting in chair today. Patient is much more alert today and communicating. She is using her incentive spirometer and saturating well on room air. Chest tubes have been removed. She denies any acute complaints. 01/19/2025 Patient seen and examined at bedside in the intensive care unit today. Patient is sitting in the chair comfortably. Patient is extremely pleasant, alert and communicating. Patient is diet well. She is passing flatus and having bowel movements. She is using her incentive spirometer saturating well on room air. Patient denies any acute complaints at this time. 01/20/25 Patient seen and examined at bedside. Patient is sitting in the chair comfortably. Patient is extremely pleasant, alert and communicating. Patient is tolerating diet well. She is passing flatus and having bowel movements. She is using her incentive spirometer, saturating well on room air. Patient denies any acute complaints at this time. She is looking forward to being discharged within the next 24 to 48 hours. 01/21/2025 Patient is evaluated today resting in bed family at the bedside. She is postoperative day #6 3 vessel cabg. Patient is being discharged home today. Echo today reveals persistent low lung volumes and mild central vascular conges tion with small left pleural effusion no significant change from 1 day earlier. She is not reporting any significant shortness of breath. Patient's renal function and electrolytes are currently within normal limits. Currently her white blood cell count is 8.6, sodium of 137 potassium 4.0, BUN of 17 creatinine 0.94 and magnesium level of 1.8. Patient states that she does utilize an insulin twice daily at 50 units which at this point patient would likely become hypoglycemic at that dose and we will adjust to 25 units at at bedtime and patient is instructed to keep a log of her blood glucose for follow-up with her PCP. Additionally patient uses a NovoLog KwikPen on a sliding scale dosage for mealtimes and she is provided with a scale. Patient states that she has not had any test strips to check her blood sugar at home we provided a sample glucometer for her and also provided a 3-month prescription to her pharmacy for test strips for the glucometer that she has at home. Patient has been afebrile, heart rate 76 normal sinus rhythm, blood pressure 161/79. 99% on room air. Review of Systems Constitutional: Denied any fatigue denied any fever. Cardio vascular: denied any chest pain, palpitations Gastrointestinal: denied any nausea, vomiting, diarrhea Pulmonary: Denied any shortness of breath cough Neurologic denied any new focal deficits All inpatient medications were reviewed and appropriate changes in these medications as dictated in the interval history and assessment and plan. PHYSICAL EXAMINATION: GENERAL: The patient is alert and oriented x3, not in any acute distress. Well developed, well nourished. HEENT: Pupils are round and equally reacting to light. EOMI. No scleral icterus. No conjunctival pallor. Normocephalic, atraumatic. No pharyngeal erythema. No t hyromegaly. CARDIOVASCULAR: S1 and S2 present. No murmurs, rubs, or gallops. PULMONARY: Chest is clear to auscultation, no wheezing or crackles. ABDOMEN: Soft, nontender, nondistended, normoactive bowel sounds. No palpable organomegaly. MUSCULOSKELETAL: No joint swelling or deformity. EXTREMITIES: No cyanosis, clubbing, or pedal edema. NEUROLOGICAL: Gross neurological examination did not reveal any focal deficits. SKIN: No rashes. Heart hugger in tact. Assessment and Plan Chronic kidney disease stage IIIa, at baseline Continue to monitor renal function Hyperglycemia in insulin-dependent diabetic Blood glucose monitoring per [facility] protocol Lantus 10 units twice daily Insulin sliding scale Hypoglycemia precautions Unstable angina Cardiac cath showed severe triple-vessel disease status post CABG POD #[address] surgery and ICU team Acute blood loss anemia secondary to above, resolved Patient was transfused total of 4 units Continue to monitor CBC Transfuse if hemoglobin less than 7 Chronic: Hypertension Continue lisinopril 10 mg daily Continue metoprolol 25 mg twice daily Hypothyroidism Continue Synthroid 175 mcg daily Hyperlipidemia Continue Lipitor 40 mg daily Anxiety Continue Lexapro 10 mg daily Xanax as needed Insomnia Continue hydroxyzine 25 mg p.o. at bedtime as needed Insulin dependent diabetes Medical following for management and recommending to discharge on lantus 25 units HS with sliding scale insulin. Patient to also resume ozempic on discharge. Patient did not have test strips at home and glucometer and script for test stips provided and patient instructed to check blood glucose before meals and at bedtime to keep log for her PCP. Chronic nicotine use in the past Obstructive sleep apnea hx with no CPAP use Chronic kidney disease stage 3 Full Code Patient medically is clear for discharge has been cleared by all consultations. Cardiothoracic surgery planning on discharge home with home care. The above mentioned changes were made to patients diabetic medications. Thank you kindly for this consultation. The impression and plan of care has been dictated by Amanda Leger, Nurse Practitioner as directed. Dr. Effie MD I have performed a history and physical examination and medical decision making of this patient, discussed the same with the dictator, and agree with the dictators assessment and plan as written, documented as a scribe. Based on total visit time, I have performed more than 50% of this visit. Objective - Vital Signs Vital signs: Vital Signs Temp 98.1 F 01/21/25 08:55 Pulse 76 01/21/25 11:45 Resp 17 01/21/25 11:04 BP 161/79 01/21/25 11:04 Pulse Ox 99 01/21/25 11:04 FiO2 50 01/15/25 20:00 Intake & Output 01/20/25 01/21/25 01/21/25 18:59 06:59 18:59 Intake Total 720 20 240 Output Total 552 900 400 Balance 168 -880 -160 Weight 90.2 kg 89.6 kg Intake: IV 20 Invasive Line 7 20 Oral 720 240 Output: Urine 550 900 400 Stool 2 Other: Voiding Method Toilet Toilet Toilet # Voids 1 # Bowel Movements 2 ABP, PAP, CO, CI - Last Documented Arterial Blood Pressure 157/63 Pulmonary Artery Pressure 38/13 Cardiac Output 5.9 Cardiac Index 3.3 - Labs CBC & Chem 7: 01/21/25 05:17 01/21/25 05:17 Labs: Abnormal Lab Results - Last 24 Hours (Table) 01/20/25 01/20/25 01/21/25 Range/Units 16:27 20:19 05:17 RBC 2.96 L (3.80-5.40) m/uL Hgb 8.4 L (11.4-16.0) gm/dL Hct 27.3 L (34.0-46.0) % MCHC 30.7 L (31.0-37.0) g/dL Glucose (74-99) mg/dL POC Glucose (mg/dL) 195 H 255 H (70-110) mg/dL 01/21/25 01/21/25 01/21/25 Range/Units 05:17 06:09 11:27 RBC (3.80-5.40) m/uL Hgb (11.4-16.0) gm/dL Hct (34.0-46.0) % MCHC (31.0-37.0) g/dL Glucose 107 H (74-99) mg/dL POC Glucose (mg/dL) 115 H 142 H (70-110) mg/dL Assessment and Plan Time with Patient: Less than 30
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
[2025-01-21 16:54] LABS: Glucose,Whole Blood 161 mg/dL (70-110)
[2025-01-22] MEDS ORDERED: LOSARTAN 50 MG TAB PO SCH (09:00)
== END 2025-01-21 17:20 | disposition home health service (06) | DRG 166 ==
LOC: EC 16:40 → 3SCARD 19:22 → 2SICU 01-15 08:51 → 3SCARD 01-20 11:25
PROVIDERS: ADMIT Surgery; ATTEND Surgery
PROC: B2111ZZ Fluoroscopy of Multiple Coronary Arteries using Low Osmolar Contrast (ICD-10-PCS; 2025-01-13)
PROC: 4A023N7 Measurement of Cardiac Sampling and Pressure, Left Heart, Percutaneous Approach (ICD-10-PCS; 2025-01-13)
PROC: 03BC3ZZ Excision of Left Radial Artery, Percutaneous Approach (ICD-10-PCS; principal; 2025-01-15 09:00)
PROC: 5A1221Z Performance of Cardiac Output, Continuous (ICD-10-PCS; principal; 2025-01-15 09:00)
PROC: 02L70CK Occlusion of Left Atrial Appendage with Extraluminal Device, Open Approach (ICD-10-PCS; principal; 2025-01-15 09:00)
PROC: 02100Z9 Bypass Coronary Artery, One Artery from Left Internal Mammary, Open Approach (ICD-10-PCS; principal; 2025-01-15 09:00)
PROC: 06BP4ZZ Excision of Right Saphenous Vein, Percutaneous Endoscopic Approach (ICD-10-PCS; principal; 2025-01-15 09:00)
PROC: 021109W Bypass Coronary Artery, Two Arteries from Aorta with Autologous Venous Tissue, Open Approach (ICD-10-PCS; principal; 2025-01-15 09:00)
PROC: B24BZZ4 Ultrasonography of Heart with Aorta, Transesophageal (ICD-10-PCS; 2025-01-15 09:00)
DX: I25.110 Atherosclerotic heart disease of native coronary artery with unstable angina pectoris (principal); I25.2 Old myocardial infarction; I25.82 Chronic total occlusion of coronary artery; I13.10 Hypertensive heart and chronic kidney disease without heart failure, with stage 1 through stage 4 chronic kidney disease, or unspecified chronic kidney disease; J98.11 Atelectasis; D62 Acute posthemorrhagic anemia; D69.6 Thrombocytopenia, unspecified; E03.9 Hypothyroidism, unspecified; E11.22 Type 2 diabetes mellitus with diabetic chronic kidney disease; E11.43 Type 2 diabetes mellitus with diabetic autonomic (poly)neuropathy; E11.649 Type 2 diabetes mellitus with hypoglycemia without coma; N18.31 Chronic kidney disease, stage 3a; E11.65 Type 2 diabetes mellitus with hyperglycemia; E66.9 Obesity, unspecified; E78.5 Hyperlipidemia, unspecified; F17.200 Nicotine dependence, unspecified, uncomplicated; F41.9 Anxiety disorder, unspecified; G47.00 Insomnia, unspecified; G47.33 Obstructive sleep apnea (adult) (pediatric); K31.84 Gastroparesis; Z79.4 Long term (current) use of insulin; Z79.82 Long term (current) use of aspirin; Z79.890 Hormone replacement therapy; Z79.899 Other long term (current) drug therapy; Z86.16 Personal history of COVID-19
CPT/HCPCS: 36415; 71045; 71046; 71250; 80048; 80053; 80061; 82330; 82805; 83036; 83690; 83735; 83880; 84439; 84443; 84484; 85025; 85027; 85610; 85730; 86850; 86891; 86900; 86901; 86920; 87070; 93005; 93306; 93458; 93880; 93970; 94002; 94150; 94640; 94760; 96361; 96365; 96366; 96375; 96376; 99291

== ENCOUNTER 2025-01-23 01:47 | Emergency (ER) | payer OTHER ==
[2025-01-23 01:57] VITALS: RESP 18
[2025-01-23] MEDS: HYDROcodone/APAP 5-325MG 1 EACH TAB PO STA ×2 (02:33→05:20)
[2025-01-23] MEDS: TOPICAL SKIN ADHESIVE 1 EACH AMP TOPICAL ONE (02:34)
--- NOTE | 2025-01-23 05:15 | ED ---
General Adult HPI - General Chief complaint: Recheck/Abnormal Lab/Rx Stated complaint: leg bleeding Time Seen by Provider: 01/23/25 01:56 Source: patient, EMS Mode of arrival: EMS Limitations: no limitations - History of Present Illness Initial comments: This patient is a 54-year-old woman who presents to have evaluation for some bleeding occurring from vein harvest site related to recent bypass. The patient states that she had gone back on her anticoagulation medications and she was not able to get the bleeding to stop at home. Patient denies symptoms of anemia, no lightheadedness or orthostasis, no chest pain, dyspnea, diaphoresis. -: hour(s) Location: lower extremity Severity scale (1-10): 0 Consistency: constant Improves with: none Worsens with: none Associated Symptoms: denies other symptoms Treatments Prior to Arrival: none - Related Data Home Medications Medication Instructions Recorded Confirmed Acetaminophen-Codeine 300-30mg 1 tab PO Q4H PRN 01/12/25 01/12/25 [Tylenol w/codeine #3] Escitalopram [Lexapro] 10 mg PO DAILY 01/12/25 01/12/25 Ezetimibe [Zetia] 10 mg PO DAILY 01/12/25 01/12/25 Gabapentin 300 mg PO TID 01/12/25 01/12/25 Levothyroxine Sodium [Synthroid] 175 mcg PO DAILY 01/12/25 01/12/25 Oxybutynin ER [Ditropan XL] 10 mg PO DAILY 01/12/25 01/12/25 hydrOXYzine HCL [Atarax] 25 mg PO HS PRN 01/12/25 01/12/25 Previous Rx's Medication Instructions Recorded Ascorbic Acid [Vitamin C] 500 mg PO DAILY@1200 #7 tab 01/21/25 Aspirin 325 mg PO DAILY #30 tab 01/21/25 Atorvastatin [Lipitor] 40 mg PO HS #30 tab 01/21/25 Blood Sugar Diagnostic [Test 1 strip MISCELLANE ACHS #120 strip 01/21/25 Strips] Clopidogrel [Plavix] 75 mg PO DAILY #30 tab 01/21/25 Ferrous Sulfate [Iron (65 MG 325 mg PO W/LUNCH #7 tab 01/21/25 Elemental)] Insulin Aspart [Insulin Aspart See Protocol SQ AC-TID #0 01/21/25 Flexpen] Insulin Glargine (Lantus) [Lantus 25 unit SQ HS #0 01/21/25 Vial] Losartan [Cozaar] 100 mg PO DAILY #30 tab 01/21/25 Metoclopramide HCl [Reglan] 10 mg PO TID #90 tab 01/21/25 Metoprolol Tartrate [Lopressor] 50 mg PO BID #60 tab 01/21/25 Pantoprazole [Protonix] 40 mg PO AC-BRKFST #30 tab 01/21/25 Semaglutide [Ozempic] 1 mg SQ MO #2 each 01/21/25 Sennosides-Docusate Sodium 2 each PO HS #14 tab 01/21/25 [Senokot-S] guaiFENesin [Mucinex] 1,200 mg PO Q12HR #30 tab 01/21/25 Allergies Allergy/AdvReac Type Severity Reaction Status Date / Time Sulfa (Sulfonamide Allergy Rash/Hives Verified 01/15/25 06:51 Antibiotics) morphine AdvReac headache Verified 01/15/25 06:51 Review of Systems ROS Statement: Those systems with pertinent positive or pertinent negative responses have been documented in the HPI. ROS Other: All systems not noted in ROS Statement are negative. Constitutional: Denies: fever, chills, weakness Respiratory: Denies: cough, dyspnea Cardiovascular: Denies: chest pain, palpitations, syncope Gastrointestinal: Denies: abdominal pain Musculoskeletal: Denies: back pain Skin: Denies: rash Neurological: Denies: headache, weakness Past Medical History Past Medical History: Coronary Artery Disease (CAD), Chest Pain / Angina, Diabetes Mellitus, Hyperlipidemia, Hypertension, Osteoarthritis (OA), Renal Disease, Sleep Apnea/CPAP/BIPAP Additional Past Medical History / Comment(s): pancreatitis History of Any Multi-Drug Resistant Organisms: None Reported Past Surgical History: Back Surgery, Section, Joint Replacement, Orthopedic Surgery Additional Past Surgical History / Comment(s): rt knee, pelvis, mady cataracts, retnial detatchment Past Anesthesia/Blood Transfusion Reactions: No Reported Reaction Past Psychological History: No Psychological Hx Reported Smoking Status: Current every day smoker Past Alcohol Use History: None Reported Past Drug Use History: None Reported - Past Family History Father Family Medical History: AFIB, Coronary Artery Disease (CAD), CVA/TIA, Diabetes Mellitus Additional Family Medical History / Comment(s): approximately 1 month ago Mother Family Medical History: Diabetes Mellitus, Hypertension General Exam Limitations: no limitations General appearance: alert, in no apparent distress Head exam: Present: atraumatic, normocephalic Respiratory exam: Present: normal lung sounds bilaterally. Absent: respiratory distress, wheezes, rales, rhonchi, stridor Cardiovascular Exam: Present: regular rate, normal rhythm, normal heart sounds. Absent: systolic murmur, diastolic murmur, rubs, gallop Neurological exam: Present: alert Skin exam: Present: warm, dry, normal color, other (Patient has small opening of harvest site with some blood oozing. No active or arterial bleeding.) Course Vital Signs 01/23/25 01/23/25 01:50 05:25 Temperature 98.2 F 97.8 F Pulse Rate 82 89 Respiratory 18 18 Rate Blood Pressure 140/67 159/79 O2 Sat by Pulse 97 98 Oximetry Medical Decision Making - Medical Decision Making Patient is 54-year-old woman here with some bleeding from vein harvest site. The bleeding is low pressure and did stop with direct pressure applied for number of minutes. I then applied Exofin to provide definitive hemostasis. Patient observed and no further bleeding Was pt. sent in by a medical professional or institution (, PA, COMMUNITY HEALTH PROGRAM REPRESENTATIVE, urgent care, hospital, or long term...) When possible be specific @ -[No] Did you speak to anyone other than the patient for history (EMS, parent, family, police, friend...)? What history was obtained from this source @ -[No] Did you review nursing and triage notes (agree or disagree)? Why? @ -[I reviewed and agree with nursing and triage notes] Were old charts reviewed (outside hosp., previous admission, EMS record, old EKG, old radiological studies, urgent care reports/EKG's, long term records)? Report findings @ -[No old charts were reviewed] Differential Diagnosis (chest pain, altered mental status, abdominal pain women, abdominal pain men, vaginal bleeding, weakness, fever, dyspnea, syncope, headache, dizziness, GI bleed, back pain, seizure, CVA, palpatations, mental health, musculoskeletal)? @ -[Postsurgical bleeding versus bleeding diathesis, list not comprehensive EKG interpreted by me (3pts min.). @ -[As above] X-rays interpreted by me (1pt min.). @ -[None done] CT interpreted by me (1pt min.). @ -[None done] U/S interpreted by me (1pt. min.). @ -[None done] What testing was considered but not performed or refused? (CT, X-rays, U/S, labs)? Why? @ -[None] What meds were considered but not given or refused? Why? @ -[None] Did you discuss the management of the patient with other professionals (professionals i.e. , PA, COMMUNITY HEALTH PROGRAM REPRESENTATIVE, lab, RT, psych nurse, social science instructor, creel cleaner, teacher, national insurance officer, bilingual case manager)? Give summary @ -[No] Was smoking cessation discussed for >3mins.? @ -[No] Was critical care preformed (if so, how long)? @ -[No] Were there social determinants of health that impacted care today? How? (Homelessness, low income, unemployed, alcoholism, drug addiction, transportation, low edu. Level, literacy, decrease access to med. care, longterm, rehab)? @ -[No] Was there de-escalation of care discussed even if they declined (Discuss DNR or withdrawal of care, Hospice)? DNR status @ -[No] What co-morbidities impacted this encounter? (DM, HTN, Smoking, COPD, CAD, Cancer, CVA, ARF, Chemo, Hep., AIDS, mental health diagnosis, sleep apnea, morbid obesity)? @ -[None] Was patient admitted / discharged? Hospital course, mention meds given and route, prescriptions, significant lab abnormalities, going to OR and other pertinent info. @ -[hospital course] Undiagnosed new problem with uncertain prognosis? @ -[No] Drug Therapy requiring intensive monitoring for toxicity (Heparin, Nitro, Insulin, Cardizem)? @ -[No] Were any procedures done? @ -[No] Diagnosis/symptom? @ -[Acute postsurgical bleeding, uncomplicated Acute, or Chronic, or Acute on Chronic? @ -[default] Uncomplicated (without systemic symptoms) or Complicated (systemic symptoms)? @ -[default] Side effects of treatment? @ -[No] Exacerbation, Progression, or Severe Exacerbation? @ -[No] Poses a threat to life or bodily function? How? (Chest pain, [place], [place], pneumonia, PE, COPD, DKA, ARF, appy, cholecystitis, CVA, Diverticulitis, Homicidal, Suicidal, threat to staff... and all critical care pts) @ -[No] All treatments are based on ideal body weight as in ED triage Disposition Clinical Impression: Bleeding Disposition: HOME SELF-CARE Condition: Good Instructions (If sedation given, give patient instructions): Postoperative Bleeding (ED) Is patient prescribed a controlled substance at d/c from ED?: No Referrals: Aurelio Moran MD [Primary Care Provider] - 1-2 days
[2025-01-23 05:26] VITALS: BP 159/79; PULSE 89; TEMP 97.8
== END 2025-01-23 05:25 | disposition home or self-care (01) ==
LOC: EC 01:47
DX: L76.22 Postprocedural hemorrhage of skin and subcutaneous tissue following other procedure (principal); F17.200 Nicotine dependence, unspecified, uncomplicated; Z88.2 Allergy status to sulfonamides; Z88.5 Allergy status to narcotic agent
CPT/HCPCS: 99283